=== PATIENT | male | born 1960 | race Caucasian/White ===

== ENCOUNTER 2017-10-09 05:39 | Outpatient (CLI) | payer OTHER ==
[~2017-10-09] VITALS: Ht 185.4 cm; Wt 75.3 kg
== END 2017-10-09 14:26 ==
LOC: PREOP 05:39
PROVIDERS: ATTEND Surgery
DX: Z01.818 Encounter for other preprocedural examination (principal); Z12.11 Encounter for screening for malignant neoplasm of colon; Z80.0 Family history of malignant neoplasm of digestive organs

== ENCOUNTER 2017-10-16 10:44 | Day surgery (SDC) | payer OTHER ==
[~2017-10-16] VITALS: Ht 185.4 cm; Wt 75.3 kg
[2017-10-16] MEDS ORDERED: NS IV 500 ML 500 ML ONE ×2 (10:55→13:00)
[2017-10-16 11:05] VITALS: BP 120/92
--- NOTE | 2017-10-16 11:20 | Progress Note-Pre Operative ---
Pre-Operative Progress Note H&P Reviewed The H&P was reviewed, patient examined and no changes noted. Date Seen by Provider: Oct 16, 2017 Time Seen by Provider: 11:00 Date H&P Reviewed: Oct 16, 2017 Time H&P Reviewed: 11:00 Pre-Operative Diagnosis: screening colonoscopy JESSICA JOVEL MD Oct 16, 2017 11:20 am
--- NOTE | 2017-10-16 11:20 | Conscious Sedation/ASA ---
Conscious Sedation Pre-Proced Time Reviewed: 11:00 ASA Class: 2 Airway Mallampati Classification: ([place] appropriate class) I. II. III, IV Lungs Heart ASA score ASA 1: a normal healthy patient ASA 2: a patient with a mild systemic disease (mid diabetes, controlled hypertension, obesity ASA 3: a patient with a severe systemic disease that limits activity (angina , COPD, prior Myocardial infarction) ASA 4: a patient with an incapacitating disease that is a constant threat to life (CHF, renal failure) ASA 5: a moribund patient not expected to survive 24 hrs. (ruptured aneurysm) ASA 6: a declared brain patient whose organs are being harvested. For emergent operations, add the letter E after the classification Grade 2 Sedation Plan: Analgesia, Amnesia, Plan communicated to team members, Discussed options with patient/fam, Discussed risks with patient/fam Note The patient is an appropriate candidate to undergo the planned procedure, sedation, and anesthesia. The patient immediately re-assessed prior to indication. JESSICA JOVEL MD Oct 16, 2017 11:20 am
[2017-10-16] MEDS ORDERED: morphine INJ 10 MG/ML 1ML (SYR OR VIAL) IV PRN (11:30)
[2017-10-16] MEDS ORDERED: HYDROcodone/APAP 5 MG/325 MG (LORTAB) TAB PO PRN (11:30)
[2017-10-16] MEDS ORDERED: ACETAMINOPHEN 325 MG TABLET PO PRN (11:30)
[2017-10-16] MEDS ORDERED: ONDANSETRON 4 MG/2 ML (SDV) Z0FRAN IV PRN (11:30)
[2017-10-16] MEDS: NS IV 500 ML 500 ML IV SCH ×2 (12:09→13:06)
[2017-10-16] MEDS ORDERED: LIDOCAINE JELLY 2% (XYLOCAINE) 5 ML TUBE ONE (12:12)
[2017-10-16] MEDS ORDERED: fentaNYL INJECTION 100 MCG/2 ML AMP ONE ×2 (12:12→12:13)
[2017-10-16] MEDS ORDERED: MIDAZOLAM 2 MG/2 ML (VERSED) VIAL ONE ×4 (12:13)
[2017-10-16] MEDS: fentaNYL INJECTION 100 MCG/2 ML AMP IVP PRN ×2 (12:35→12:46)
[2017-10-16] MEDS: MIDAZOLAM 2 MG/2 ML (VERSED) VIAL IVP PRN ×4 (12:44→13:00)
[2017-10-16] MEDS ORDERED: LIDOCAINE JELLY 2% (XYLOCAINE) 5 ML TUBE TOP ONE (13:15)
--- NOTE | 2017-10-16 13:21 | Progress Note-Post Operative ---
Post-Operative Progess Note Surgeon (s)/Cafe Assistant (s) Surgeon JESSICA JOVEL MD Cafe Assistant: none Pre-Operative Diagnosis screening colonoscopy, family hx colon ca Post-Operative Diagnosis chronic stage 2 ext and int hemorrhoids. Procedure & Operative Findings Date of Procedure 10/16/17 Procedure Performed/Findings Colonoscopy. Anesthesia Type CS Estimated Blood Loss Estimated blood loss (mL): minimal Specimens/Packing Specimens Removed none JESSICA JOVEL MD Oct 16, 2017 1:21 pm
--- NOTE | 2017-10-16 13:22 | Discharge Inst-Surgical ---
D/C Lap Instructions-KIDO Follow Up Appt 5 years Activity as tolerated High Fiber Diet 25g or more per day Avoid Alcohol, Caffeine, Spicy Becker and Acid foods. Drink 64 fluid oz or more of fluids per day. Symptoms to Report: Fever over 101 degree F, Nausea/Vomiting If any problems/questions: Contact your physician or go to Emergency Room JESSICA JOVEL MD Oct 16, 2017 1:22 pm
[2017-10-16 13:45] VITALS: BP 110/82
[2017-10-16 14:15] VITALS: BP 130/85
--- NOTE | 2017-10-16 18:20 | OPERATIVE REPORT ---
DATE OF SERVICE: 10/16/2017 ATTENDING PRIMARY CARE PHYSICIAN: Kiah Bahena MD PREOPERATIVE DIAGNOSIS: Screening colonoscopy with family history of colon cancer. POSTOPERATIVE DIAGNOSIS: Mild stage II chronic external and internal hemorrhoids. Remainder of the rectum and colon were normal. PROCEDURE: Colonoscopy. SURGEON: Jessica Jovel MD ANESTHESIA: Conscious sedation. ESTIMATED BLOOD LOSS: Minimal. FINDINGS: Mild chronic stage II external and internal hemorrhoids, not actively edematous nor inflamed and no bleeding. Prostate gland was palpable and appeared normal. The remainder of the rectum and colon were normal. There were no polyps or any neoplasms identified. DISPOSITION: The patient tolerated the procedure well. INDICATIONS: The patient is a 56-year-old male in need of a followup screening colonoscopy. This gentleman reports that his last colonoscopy was approximately 12 years ago and he was found to have a polyp and this was biopsied and found to be benign. He states that for the most part he is doing well and his bowel movements are normal. He does not report any red blood per rectum nor any dark tarry stools. He does have a family history of colon cancer with his mother being diagnosed with the disease around the age of 60. DESCRIPTION OF PROCEDURE: The patient was brought to the endoscopy suite, laid in left lateral decubitus position. After adequate IV pain and sedating medications and conscious sedation anesthesia, a digital rectal examination was performed. Mild chronic stage II external and internal hemorrhoids were identified, which were not actively edematous nor inflamed and no bleeding. Normal sphincter tone was felt and there were no palpable masses. Prostate gland was palpable and appeared normal. The endoscope was then intubated to the anus and rectum gently insufflated. The endoscope was then advanced through the valves of Mancera in the rectum with no polyps or any neoplasms identified. We then proceeded through the sigmoid colon where no diverticulosis identified. The endoscope was then advanced through the remainder of the descending, transverse and ascending colon to the cecum. These segments were normal. There were no polyps or any neoplasms identified throughout the colon or rectum. The endoscope was then slowly withdrawn while taking a second look and suctioning of residual air with no additional findings. The patient tolerated the procedure well. We will recommend continued medical management with a high-fiber diet with at least 30 grams of fiber per day as well as copious amounts of water to promote soft stools on a daily basis. Due to his first degree family history of colon cancer, we will recommend a followup colonoscopy in 5 years. Job ID: [id number] DocumentID: [id number] Dictated Date: 10/16/2017 13:13:12 Non Profit Job Titles Date: 10/16/2017 18:19:54 Dictated By: JESSICA JOVEL MD
== END 2017-10-16 14:20 | disposition home or self-care (01) ==
LOC: ENDO 10:44
PROVIDERS: ATTEND Surgery
DX: Z12.11 Encounter for screening for malignant neoplasm of colon (principal); K64.1 Second degree hemorrhoids; Z80.0 Family history of malignant neoplasm of digestive organs; Z87.891 Personal history of nicotine dependence

== ENCOUNTER → 2018-01-24 | Outpatient (CLI) | payer OTHER | LOC: CARD 08:58 | PROVIDERS: ATTEND Internal Medicine Interventional Cardiology | DX: Z01.810 Encounter for preprocedural cardiovascular examination (principal); I49.1 Atrial premature depolarization; Z72.0 Tobacco use | CPT/HCPCS: 93306 ==

== ENCOUNTER 2021-11-15 08:35 | Emergency (ER) | payer SELFPAY ==
[2021-11-15] MEDS ORDERED: KETOROLAC 60 MG/2 ML VIAL IM ONE (08:45)
[2021-11-15] MEDS ORDERED: CYCLOBENZAPRINE 10 MG (FLEXERIL) TAB PO SCH (08:45)
--- NOTE | 2021-11-15 08:50 | ED Back Pain ---
General Chief Complaint: Back Problems Stated Complaint: LWR BACK PAIN Source of Information: Patient, EMS Exam Limitations: No Limitations History of Present Illness Date Seen by Provider: Nov 15, 2021 Time Seen by Provider: 08:37 Initial Comments 60-year-old male presents to the emergency department via EMS for chronic back pain. He tells me pain is dull throbbing knifelike in his mid low back. He was seen at [facility] 2 weeks ago and had a CT scan or MRI at that time. He was told he would likely need follow-up for surgical intervention. 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 He denies any lower extremity weakness numbness or tingling. No loss of bowel or bladder control or saddle anesthesia. He has been using Motrin without much relief. He does tell me he is homeless Allergies and Home Medications Allergies Coded Allergies: No Known Drug Allergies (Verified , 10/16/17) Patient Home Medication List Home Medication List Reviewed: Yes Cyclobenzaprine HCl (Cyclobenzaprine HCl) 10 Mg Tablet, 10 MG PO Q6H Prescribed by: JOAQUIN MATOS MD on 11/15/21 0856 Review of Systems Constitutional: no symptoms reported EENTM: no symptoms reported Respiratory: no symptoms reported Cardiovascular: no symptoms reported Gastrointestinal: no symptoms reported Genitourinary: no symptoms reported Musculoskeletal: back pain Skin: no symptoms reported Psychiatric/Neurological: No Symptoms Reported Past Quuehuj-Wnrlac-Xyrwek Hx Patient Social History Tobacco Use?: Yes Smoking Status: Current Everyday Smoker Substance use?: Yes Substance type: Marijuana Seasonal Allergies Seasonal Allergies: No Past Medical History Surgeries: No Family Medical History Reviewed Nursing Family Hx No Pertinent Family Hx Physical Exam Vital Signs Vital Signs - First Documented 11/15/21 08:35 Temp 36.5 Pulse 71 Resp 18 B/P (MAP) 141/73 (95) Pulse Ox 100 O2 Delivery Room Air Capillary Refill : Height, Weight, BMI Height: 6'1.00" Weight: 166lbs. 0.0oz. 75.157209ax; 21.9 BMI Method: General Appearance: No Apparent Distress, WD/WN HEENT: Normal ENT Inspection, Pharynx Normal Neck: Normal Inspection, Non Tender, Supple Cardiovascular: Regular Rate, Rhythm, No Edema, No Murmur Respiratory: Chest Non Tender, Lungs Clear, Normal Breath Sounds, No Respiratory Distress Gastrointestinal: Normal Bowel Sounds, No Organomegaly, Non Tender, Soft Back: Vertebral Tenderness (Mid lumbar spine) Extremity: Normal Capillary Refill Neurologic/Psychiatric: Alert, Oriented x3, No Motor/Sensory Deficits, Normal Mood/Affect, pumper helper II-XII Norm as Tested, Other (Normal reflexes bilateral lower extremities) Skin: Normal Color, Warm/Dry Progress/Results/Core Measures Results/Orders My Orders Orders - JOAQUIN MATOS DO Ketorolac Injection (Toradol Injection) (11/15/21 08:45) Cyclobenzaprine Tablet (Flexeril Tablet) (11/15/21 08:45) Medications Given in ED Current Medications Medications Dose Ordered Sig/Noemy Route Start Time Stop Time Status Last Admin Dose Admin Ketorolac Tromethamine 30 mg ONCE ONCE IM 11/15/21 08:45 11/15/21 08:46 DC 11/15/21 09:00 30 MG Vital Signs/I&O 11/15/21 08:35 Temp 36.5 Pulse 71 Resp 18 B/P (MAP) 141/73 (95) Pulse Ox 100 O2 Delivery Room Air Departure Communication (Admissions) Patient is hemodynamically stable. He has no red flag symptoms and recently had imaging. Given IM Toradol and discharged in stable condition peer Impression Primary Impression: Back pain Qualified Codes: M54.50 - Low back pain, unspecified; G89.29 - Other chronic pain Disposition: 01 HOME, SELF-CARE Condition: Stable Departure-Patient Inst. Referrals: ANGELIKA SMITH MD (PCP) Primary Care Physician Patient Instructions: Low Back Pain (DC) Add. Discharge Instructions: Continue to take anti-inflammatory medications as needed. Use the muscle relaxers as needed as prescribed. All discharge instructions reviewed with patient and/or family. Voiced understanding. Scripts Cyclobenzaprine HCl (Cyclobenzaprine HCl) 10 Mg Tablet 10 MG PO Q6H for muscle spasm for 10 Days, #40 TAB Prov: JOAQUIN MATOS DO 11/15/21 Cyclobenzaprine HCl (Cyclobenzaprine HCl) 10 Mg Tablet 10 MG PO Q6H for Muscle Spasms for 10 Days, #30 TAB Prov: JOAQUIN MATOS DO 11/15/21 JOAQUIN MATOS DO Nov 15, 2021 08:50
[2021-11-15] MEDS ORDERED: CYCL10TA25 PO ×2 (08:56→09:04)
[2021-11-15 09:05] VITALS: BP 141/73
== END 2021-11-15 09:05 | disposition home or self-care (01) ==
LOC: EDUNIT# 08:35 → ER FS 08:36
DX: M54.50 Low back pain, unspecified (principal); F17.200 Nicotine dependence, unspecified, uncomplicated
CPT/HCPCS: 96372; 99284

== ENCOUNTER 2021-11-20 10:42 | Emergency (ER) | payer SELFPAY ==
[~2021-11-20] VITALS: Ht 185 cm; Wt 74.0 kg
[~2021-11-20 10:42] MED LIST: CYCL10TA25 PO
[2021-11-20 10:55] VITALS: BP 129/86
[2021-11-20] MEDS ORDERED: DOCUSATE SODIUM 100 MG (COLACE) CAP PO ONE (11:45)
--- NOTE | 2021-11-20 11:47 | ED General ---
General Chief Complaint: Abdominal/GI Problems Stated Complaint: CONSTIPATION Nursing Triage Note: ARRIVED VIA AMB WITH COMPLAINTS OF CONSTIPATION FOR A FEW DAYS. STATES HE GAVE HIMSELF A WATER ENEMA THIS AM WITH LITTLE RESULTS. STATES HE IS HOMELESS. Source of Information: Patient Exam Limitations: No Limitations History of Present Illness Date Seen by Provider: Nov 20, 2021 Time Seen by Provider: 11:20 Initial Comments 60-year-old male presents for abdominal bloating. States symptoms present for the last 2 to 3 days. He is having very small bowel movements daily. He may be constipated. He has had this happen to him in the past. No nausea or vomiting. No fevers. No abdominal pain. No changes in bladder habits. Allergies and Home Medications Allergies Coded Allergies: No Known Drug Allergies (Verified , 10/16/17) Patient Home Medication List Home Medication List Reviewed: Yes Cyclobenzaprine HCl (Cyclobenzaprine HCl) 10 Mg Tablet, 10 MG PO Q6H Prescribed by: JOAQUIN MATOS MD on 11/15/21 0856 Cyclobenzaprine HCl (Cyclobenzaprine HCl) 10 Mg Tablet, 10 MG PO Q6H Prescribed by: JOAQUIN MATOS MD on 11/15/21 0904 Review of Systems Review of Systems Constitutional: no symptoms reported EENTM: no symptoms reported Respiratory: no symptoms reported Cardiovascular: no symptoms reported Gastrointestinal: constipation Genitourinary: no symptoms reported Musculoskeletal: no symptoms reported Skin: no symptoms reported Psychiatric/Neurological: No Symptoms Reported Hematologic/Lymphatic: No Symptoms Reported Immunological/Allergic: no symptoms reported Past Fbehbmy-Lmpkss-Wbpcmo Hx Patient Social History Tobacco Use?: Yes Smoking Status: Current Everyday Smoker Alcohol Use?: No Immunizations Up To Date Second COVID19 Vaccination Skyler: UNKNOWN COVID19 Vaccine 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 0.0oz. 75.731701pk; 21.00 BMI Method: General Appearance: No Apparent Distress, WD/WN HEENT: PERRL/EOMI, TMs Normal, Normal ENT Inspection, Pharynx Normal Neck: Full Range of Motion, Normal Inspection, Non Tender, Supple Respiratory: Chest Non Tender, Lungs Clear, Normal Breath Sounds, No Accessory Muscle Use, No Respiratory Distress Cardiovascular: Regular Rate, Rhythm, No Edema, No Gallop, No JVD, No Murmur, Normal Peripheral Pulses Gastrointestinal: Normal Bowel Sounds, No Organomegaly, No Pulsatile Mass, Non Tender, Soft Back: Normal Inspection, No CVA Tenderness, No Vertebral Tenderness Extremity: Normal Capillary Refill, Normal Inspection, Normal Range of Motion, Non Tender, No Calf Tenderness Neurologic/Psychiatric: Alert, Oriented x3, No Motor/Sensory Deficits Skin: Normal Color, Warm/Dry Progress/Results/Core Measures Suspected Sepsis SIRS Temperature: Pulse: 107 Respiratory Rate: 16 Blood Pressure 129 /86 Mean: 100 Results/Orders My Orders Orders - SHAWNAJOAQUIN MONTERO DO Docusate Sodium Capsule (Colace Capsule) (11/20/21 11:45) Vital Signs/I&O 11/20/21 10:55 Temp 36.3 Pulse 107 Resp 16 B/P (MAP) 129/86 (100) Pulse Ox 99 O2 Delivery Room Air Capillary Refill : Less Than 3 Seconds Blood Pressure Mean: 100 Departure Communication (Admissions) Patient is hemodynamically stable nonsurgical abdominal exam. He fears he is constipated. He is only having very small bowel movements daily that he is passing gas. He states he does not have any money and requests help with medications for constipation mostly. He denies any real abdominal pain just b loating. No nausea or vomiting. His abdominal exam is benign. Impression Primary Impression: Decreased frequency of bowel movements Disposition: 01 HOME, SELF-CARE Condition: Stable Departure-Patient Inst. Referrals: NO,LOCAL PHYSICIAN (PCP/Family) Primary Care Physician Patient Instructions: Constipation, Adult (DC) Add. Discharge Instructions: You were seen in the emergency room today for urine constipation. As discussed I do not see any emergent medical condition for your symptoms. Your abdomen is very soft. As long as you are having small bowel movements daily is likely not worrisome. I recommend you get an ymln-mos-ybclaba stool softener like Colace or senna. You have been given a dose of Colace here which may help. Return to the emergency department for any severe concerns. Call your primary physician for any nonemergent needs All discharge instructions reviewed with patient and/or family. Voiced understanding. JOAQUIN MATOS DO Nov 20, 2021 11:47
== END 2021-11-20 12:06 | disposition home or self-care (01) ==
LOC: EDUNIT# 10:42 → ER 10:44
DX: R19.4 Change in bowel habit (principal); F17.200 Nicotine dependence, unspecified, uncomplicated; Z28.310 Unvaccinated for COVID-19
CPT/HCPCS: 99283

== ENCOUNTER 2021-11-30 19:51 | Emergency (ER) | payer SELFPAY ==
--- NOTE | 2021-11-30 20:07 | ED Back Pain ---
General Stated Complaint: LOWER BACK PAIN, WEAKNESS Source of Information: Patient, EMS Exam Limitations: No Limitations History of Present Illness Date Seen by Provider: Nov 30, 2021 Time Seen by Provider: 19:57 Initial Comments 60-year-old male with past medical history of chronic back pain coming in via EMS due to lower back pain and general weakness. He is homeless, who was found outside of the [facility], and was not acting right so bystanders called EMS. Blood pressure and glucose was okay for them. NIH was 0 for them. He reports general leg weakness which has been ongoing since he has been having back issues. He had an MRI recently and has follow-up at [place]. Denies any chest pain, shortness of breath, palpitations, nausea, vomiting, diarrhea, focal weakness or numbness, headache, vision changes, fever, rash, or any other concerns Allergies and Home Medications Allergies Coded Allergies: No Known Drug Allergies (Verified , 10/16/17) Patient Home Medication List Home Medication List Reviewed: Yes Cyclobenzaprine HCl (Cyclobenzaprine HCl) 10 Mg Tablet, 10 MG PO Q6H Prescribed by: JOAQUIN MATOS MD on 11/15/21 0856 Cyclobenzaprine HCl (Cyclobenzaprine HCl) 10 Mg Tablet, 10 MG PO Q6H Prescribed by: JOAQUIN MATOS MD on 11/15/21 0904 Review of Systems Constitutional: No fever EENTM: No blurred vision Respiratory: No cough Cardiovascular: No chest pain Gastrointestinal: no symptoms reported Genitourinary: no symptoms reported Musculoskeletal: back pain Skin: no symptoms reported All Other Systems Reviewed Negative Unless Noted: Yes Past Iaywtgg-Mgfqqi-Dmcmtr Hx Patient Social History Tobacco Use?: Yes Tobacco type used: Cigarettes Substance use?: Yes Substance type: Marijuana Immunizations Up To Date Second COVID19 Vaccination Skyler: UNKNOWN Seasonal Allergies Seasonal Allergies: No Past Medical History Surgery/Hospitalization HX: AFIB Surgeries: No Family Medical History No Pertinent Family Hx Physical Exam Vital Signs Capillary Refill : Height, Weight, BMI Height: 6'1.00" Weight: 166lbs. 0.0oz. 75.960704bj; 21.00 BMI Method: General Appearance: No Apparent Distress, WD/WN HEENT: PERRL/EOMI, Normal ENT Inspection, Pharynx Normal Neck: Full Range of Motion, Normal Inspection, Non Tender, Supple Cardiovascular: Regular Rate, Rhythm, No Edema, Normal Peripheral Pulses Respiratory: Chest Non Tender, Lungs Clear, Normal Breath Sounds, No Accessory Muscle Use, No Respiratory Distress Gastrointestinal: Normal Bowel Sounds, Non Tender, Soft; No Guarding Back: Normal Inspection, No CVA Tenderness, No Vertebral Tenderness Extremity: Normal Capillary Refill, Normal Inspection, Normal Range of Motion, Non Tender, No Calf Tenderness Neurologic/Psychiatric: Alert, Oriented x3, No Motor/Sensory Deficits, Normal Mood/Affect, barge hand II-XII Norm as Tested, Other (Normal giaemf-fq-lali, normal visual acuity and visual nielson, no drift with legs or arms, NIH of 0) Skin: Normal Color, Warm/Dry Lymphatic: No Adenopathy Progress/Results/Core Measures Results/Orders Lab Results Laboratory Tests Test 11/30/21 19:57 11/30/21 20:06 Range/Units Glucometer 94 70-110 MG/DL White Blood Count 8.0 4.3-11.0 10^3/uL Red Blood Count 4.77 4.30-5.52 10^6/uL Hemoglobin 13.9 13.3-17.7 g/dL Hematocrit 42 40-54 % Mean Corpuscular Volume 87 80-99 fL Mean Corpuscular Hemoglobin 29 25-34 pg Mean Corpuscular Hemoglobin Concent 34 32-36 g/dL Red Cell Distribution Width 14.9 H 10.0-14.5 % Platelet Count 255 130-400 10^3/uL Mean Platelet Volume 8.9 L 9.0-12.2 fL Immature Granulocyte % (Auto) 1 % Neutrophils (%) (Auto) 73 42-75 % Lymphocytes (%) (Auto) 17 12-44 % Monocytes (%) (Auto) 9 0-12 % Eosinophils (%) (Auto) 0 0-10 % Basophils (%) (Auto) 0 0-10 % Neutrophils # (Auto) 5.8 1.8-7.8 10^3/uL Lymphocytes # (Auto) 1.3 1.0-4.0 10^3/uL Monocytes # (Auto) 0.7 0.0-1.0 10^3/uL Eosinophils # (Auto) 0.0 0.0-0.3 10^3/uL Basophils # (Auto) 0.0 0.0-0.1 10^3/uL Immature Granulocyte # (Auto) 0.0 0.0-0.1 10^3/uL Sodium Level 137 135-145 MMOL/L Potassium Level 4.4 3.6-5.0 MMOL/L Chloride Level 103 98-107 MMOL/L Carbon Dioxide Level 23 21-32 MMOL/L Anion Gap 11 5-14 MMOL/L Blood Urea Nitrogen 13 7-18 MG/DL Creatinine 0.77 0.60-1.30 MG/DL Estimat Glomerular Filtration Rate 102 BUN/Creatinine Ratio 17 Glucose Level 96 70-105 MG/DL Calcium Level 9.4 8.5-10.1 MG/DL Corrected Calcium 10.0 8.5-10.1 MG/DL Magnesium Level 1.7 1.6-2.4 MG/DL Total Bilirubin 0.5 0.1-1.0 MG/DL Aspartate Amino Transf (AST/SGOT) 21 5-34 U/L Alanine Aminotransferase (ALT/SGPT) 17 0-55 U/L Alkaline Phosphatase 38 L 40-136 U/L Total Protein 7.5 6.4-8.2 GM/DL Albumin 3.2 3.2-4.5 GM/DL Serum Alcohol < 10 <10 MG/DL My Orders Orders - AINSLEY FAJARDO MD Alcohol (11/30/21 20:04) Cbc With Automated Diff (11/30/21 20:04) Comprehensive Metabolic Panel (11/30/21 20:04) Magnesium (11/30/21 20:04) Ed Iv/Invasive Line Start (11/30/21 20:04) Ns Iv 1000 Ml (Sodium Chloride 0.9%) (11/30/21 20:15) Ekg Tracing (11/30/21 20:04) Accucheck Stat ONCE (11/30/21 20:04) Medications Given in ED Current Medications Medications Dose Ordered Sig/Noemy Route Start Time Stop Time Status Last Admin Dose Admin Sodium Chloride 1,000 ml @ 0 mls/hr Q0M ONCE IV 11/30/21 20:15 11/30/21 20:16 DC 11/30/21 20:35 999 MLS/HR FSBG Bedside Testing Finger Stick Blood Glucose: 94 Blood Glucose Action Taken: PROVIDER NOTIFIED Progress Progress Note : Progress Note 60-year-old male with above history coming in due to general weakness. ABCs were intact and vitals were stable on presentation. Physical exam reassuring including an NIH of 0. He has known spinal issues, and had an MRI recently and likely will need neurosurgical intervention at some point in his spine. Currently he does not have any significant weakness that would warrant immediate referral emergently as a transfer. Basic labs obtained and are essentially are unremarkable. He was given a bolus of IV fluids. The patient's main issues when he got here were that he wanted coffee and food. He is homeless. I do not believe he has any other significant complaints at this time. Initial ECG Impression Date: Nov 30, 2021 Initial ECG Impression Time: 20:22 Initial ECG Rate: 94 Initial ECG Rhythm: Normal Sinus Comment Narrow QRS, normal axis, no significant ST changes or T wave abnormalities, frequent supraventricular premature complexes Departure Impression Primary Impression: Back pain Qualified Codes: M54.50 - Low back pain, unspecified; G89.29 - Other chronic pain Additional Impressions: Homelessness Hungry Qualified Codes: T73.0XXA - Starvation, initial encounter Disposition: 01 HOME, SELF-CARE Condition: Stable Departure-Patient Inst. Decision time for Depature: 20:55 Referrals: NO,LOCAL PHYSICIAN (PCP/Family) Primary Care Physician Patient Instructions: Low Back Pain ED Add. Discharge Instructions: You do have chronic back issues, and you will need to follow up with the back surgeon in [place]. You were told you likely would need surgery eventually. This is why your legs are weaker than usual. The number for the [facility] is [phone]. Call to schedule an appointment FELICITA. Otherwise take tylenol and ibuprofen as needed for pain. Work/School Note: Work Release Form Date Seen in the Emergency Department: Nov 30, 2021 Return to Work: Dec 01, 2021 Restrictions: No Restrictions AINSLEY FAJARDO MD Nov 30, 2021 20:07
[2021-11-30 20:12] LABS: BASOPHILS % (AUTO) 0 % (0-10); EOSINOPHILS % (AUTO) 0 % (0-10); HEMATOCRIT 42 % (40-54); HEMOGLOBIN 13.9 g/dL (13.3-17.7); LYMPHOCYTES # (AUTO) 1.3 10^3/uL (1.0-4.0); LYMPHOCYTES % (AUTO) 17 % (12-44); MEAN CORPUSCULAR HEMOGLOBIN 29 pg (25-34); MEAN CORPUSCULAR HGB CONC 34 g/dL (32-36); MEAN CORPUSCULAR VOLUME 87 fL (80-99); MEAN PLATELET VOLUME 8.9 fL (9.0-12.2); MONOCYTES # (AUTO) 0.7 10^3/uL (0.0-1.0); MONOCYTES % (AUTO) 9 % (0-12); NEUTROPHILS # (AUTO) 5.8 10^3/uL (1.8-7.8); NEUTROPHILS % (AUTO) 73 % (42-75); PLATELET COUNT 255 10^3/uL (130-400)
[2021-11-30] MEDS ORDERED: NS IV 1000 ML 1,000 ML IV ONE (20:15)
[2021-11-30 20:32] LABS: ALBUMIN 3.2 GM/DL (3.2-4.5); CHLORIDE 103 MMOL/L (98-107); POTASSIUM 4.4 MMOL/L (3.6-5.0); SODIUM 137 MMOL/L (135-145)
[2021-11-30 20:34] LABS: CALCIUM 9.4 MG/DL (8.5-10.1)
[2021-11-30 20:35] LABS: GLUCOSE 96 MG/DL (70-105); TOTAL PROTEIN 7.5 GM/DL (6.4-8.2)
[2021-11-30 20:36] LABS: CARBON DIOXIDE 23 MMOL/L (21-32)
[2021-11-30 20:37] LABS: BILIRUBIN,TOTAL 0.5 MG/DL (0.1-1.0)
[2021-11-30 20:38] LABS: ALKALINE PHOSPHATASE 38 U/L (40-136)
[2021-11-30 20:39] LABS: CREATININE SERUM 0.77 MG/DL (0.60-1.30); GFR ESTIMATED 102
[2021-11-30 20:40] LABS: BUN/CREATININE RATIO 17
[2021-11-30 20:41] LABS: MAGNESIUM 1.7 MG/DL (1.6-2.4)
[2021-11-30 20:42] LABS: ALANINE AMINOTRANSFERASE 17 U/L (0-55)
[2021-11-30 21:03] VITALS: BP 146/85
== END 2021-11-30 21:05 | disposition home or self-care (01) ==
LOC: EDUNIT# 19:51 → ER 19:52
DX: T73.0XXA Starvation, initial encounter (principal); M54.50 Low back pain, unspecified; G89.29 Other chronic pain; Z59.00 Homelessness unspecified
CPT/HCPCS: 80053; 82947; 83735; 85025; 93005; 99284; G0480; 36415; 80320

== ENCOUNTER 2021-12-04 15:14 | Inpatient (IN) | payer OTHER ==
[2021-12-04] VITALS (10 sets, daily range): BP systolic 112–132; BP diastolic 59–68
[~2021-12-04] VITALS: Ht 187.9 cm; Wt 78.5 kg
[2021-12-04 15:50] LABS: BASOPHILS % (AUTO) 0 % (0-10); EOSINOPHILS % (AUTO) 0 % (0-10); HEMATOCRIT 41 % (40-54); HEMOGLOBIN 13.7 g/dL (13.3-17.7); LYMPHOCYTES # (AUTO) 1.6 10^3/uL (1.0-4.0); LYMPHOCYTES % (AUTO) 14 % (12-44); MEAN CORPUSCULAR HEMOGLOBIN 30 pg (25-34); MEAN CORPUSCULAR HGB CONC 34 g/dL (32-36); MEAN CORPUSCULAR VOLUME 87 fL (80-99); MEAN PLATELET VOLUME 9.1 fL (9.0-12.2); MONOCYTES # (AUTO) 0.8 10^3/uL (0.0-1.0); MONOCYTES % (AUTO) 7 % (0-12); NEUTROPHILS # (AUTO) 9.1 10^3/uL (1.8-7.8); NEUTROPHILS % (AUTO) 79 % (42-75); PLATELET COUNT 268 10^3/uL (130-400); WHITE BLOOD COUNT 11.6 10^3/uL (4.3-11.0)
--- NOTE | 2021-12-04 15:58 | ED General ---
General Chief Complaint: General Problems/Pain Stated Complaint: WEAKNESS Source of Information: Patient Exam Limitations: Other (Pt is poor historian) (ARIA PEDRAZA A MED STUDENT) History of Present Illness Date Seen by Provider: Dec 04, 2021 Time Seen by Provider: 15:47 Initial Comments Jeny Bermudez is a 61 yo male who presented for weakness and pain. Pt has hx of chronic back pain and homelessness. Pt is a poor historian, so history was mo stly pieced together from previous ED records, the friend who brought him in and ZIYAD Joseph his provider. Pt's friend states he is not acting like himself and is very lethargic. Pt was seen by ZIYAD Joseph this morning who also stated pt needed medical attention d/t concern for sepsis. Pt reports he has pain all over. He has been seen several times in this ED for back pain. He had an MRI at some point stating need for spinal surgery, but pt never followed up with [facility]. He reports he does not have the resources to get there. He is currently living in a hotel with assistance from the [employer] Larisa Tian has c/o need for intermediate placement as he can not care for himself any longer. Upon examination pt has a swollen bottom lip. When asked about this he states he does not know why its swollen and denies injury. Upon inspection pt has anchovie like paste coming from the floor of the mouth and has visible missing teeth and edematous gums. When asked about recent falls pt states he may have fallen last night, but he does not remember. Upon removing shoes and socks pt winces in pain with removal of right side. The right foot and ankle are visibly swollen, but pt does not remember injuring this joint. Pt is a smoker and admits to marijuana use for his back pain. Pt denies ETOH use and this is confirmed by his friend who states he has not drank in 20 years. With hx of possible fall and unknown whether LOC, non contrast CT head should be considered. Will order right ankle/foot Xrays to r/o fractures. Will get CBC, CMP, UA with culture if indicated. 2 large bore IVs started, will give 1L bolus. There is concern for sepsis, so work up will be completed. Timing/Duration: Getting Worse Associated Systoms: Fever/Chills; No Nausea/Vomiting; Weakness (ARIA PEDRAZA) Allergies and Home Medications Allergies Coded Allergies: No Known Drug Allergies (Verified , 10/16/17) Patient Home Medication List Home Medication List Reviewed: No (GORDON RUTHERFORD DO) Cyclobenzaprine HCl (Cyclobenzaprine HCl) 10 Mg Tablet, 10 MG PO Q6H Prescribed by: JOAQUIN MATOS MD on 11/15/21 0856 Cyclobenzaprine HCl (Cyclobenzaprine HCl) 10 Mg Tablet, 10 MG PO Q6H Prescribed by: JOAQUIN MATOS MD on 11/15/21 0904 Review of Systems Review of Systems Constitutional: No chills; fever EENTM: No blurred vision, No vision loss Respiratory: No cough, No short of breath Cardiovascular: No chest pain, No palpitations Gastrointestinal: No abdominal pain, No constipation, No diarrhea, No nausea, No vomiting Genitourinary: No dysuria, No frequency Musculoskeletal: back pain, muscle weakness Skin: No lesions, No lumps, No rash Psychiatric/Neurological: Numbness, Weakness Hematologic/Lymphatic: No Symptoms Reported Immunological/Allergic: no symptoms reported (ARIA PEDRAZA) Past Hjtfegl-Wbqdyx-Clkdqb Hx Immunizations Up To Date First/Initial COVID19 Vaccinat: UNKNOWN Second COVID19 Vaccination Skyler: UNKNOWN Third COVID19 Vaccination Date: UNKNOWN (ARIA PEDRAZA) Seasonal Allergies Seasonal Allergies: No (ARIA PEDRAZA) Past Medical History Surgery/Hospitalization HX: AFIB Surgeries: No (ARIA PEDRAZA) Family Medical History No Pertinent Family Hx (ARIA PEDRAZA) Physical Exam Vital Signs Vital Signs - First Documented 12/04/21 15:35 Temp 37.8 Pulse 106 Resp 14 B/P (MAP) 124/79 (94) Pulse Ox 96 O2 Delivery Room Air (NAZARIO MAKI MD) Vital Signs Capillary Refill : (ARIA PEDRAZA STUDENT) Height, Weight, BMI Height: 6'1.00" Weight: 166lbs. 0.0oz. [id number]; 21.00 BMI Method: General Appearance: Chronically ill, Cachetic HEENT: PERRL/EOMI, Other (necrotic material extending from mucosal surface of the lower lip, into the adjacent gingiva, unstable front teeth. Edematous floor of mouth. Erythematous gingiva throughout rest of mouth. Halitosis. Echymosis and induration over chin on the mucosal surface as well as exterior surface) Neck: Full Range of Motion, Normal Inspection, Tender Lateral, Tender Midline Respiratory: Chest Non Tender, Lungs Clear, Normal Breath Sounds Cardiovascular: No Murmur, Tachycardia Gastrointestinal: Normal Bowel Sounds, Non Tender, Soft Extremity: Normal Capillary Refill, No Pedal Edema, Swelling (right foot and ankle edema) Neurologic/Psychiatric: Alert, Depressed Affect, Disoriented Skin: Other (skin is abnormally warm to touch) Lymphatic: No Adenopathy (ARIA PEDRAZA MED STUDENT) Focused Exam Lactate Level 12/04/21 15:47: Lactic Acid Level 2.19*H (NAZARIO MAKI MD) Lactic Acid Level Laboratory Tests Test 12/04/21 15:47 Lactic Acid Level 2.19 MMOL/L (0.50-2.00) *H (NAZARIO MAKI MD) Progress/Results/Core Measures Suspected Sepsis SIRS Temperature: Pulse: Respiratory Rate: Laboratory Tests 12/04/21 15:47: White Blood Count 11.6H Blood Pressure / Mean: 12/04/21 15:47: Lactic Acid Level 2.19*H Laboratory Tests 12/04/21 15:47: Creatinine 0.75, INR Comment 1.0, Platelet Count 268, Total Bilirubin 0.5 (ARIA PEDRAZA MED STUDENT) Results/Orders Lab Results Laboratory Tests Test 12/04/21 15:47 Range/Units White Blood Count 11.6 H 4.3-11.0 10^3/uL Red Blood Count 4.65 4.30-5.52 10^6/uL Hemoglobin 13.7 13.3-17.7 g/dL Hematocrit 41 40-54 % Mean Corpuscular Volume 87 80-99 fL Mean Corpuscular Hemoglobin 30 25-34 pg Mean Corpuscular Hemoglobin Concent 34 32-36 g/dL Red Cell Distribution Width 14.8 H 10.0-14.5 % Platelet Count 268 130-400 10^3/uL Mean Platelet Volume 9.1 9.0-12.2 fL Immature Granulocyte % (Auto) 1 % Neutrophils (%) (Auto) 79 H 42-75 % Lymphocytes (%) (Auto) 14 12-44 % Monocytes (%) (Auto) 7 0-12 % Eosinophils (%) (Auto) 0 0-10 % Basophils (%) (Auto) 0 0-10 % Neutrophils # (Auto) 9.1 H 1.8-7.8 10^3/uL Lymphocytes # (Auto) 1.6 1.0-4.0 10^3/uL Monocytes # (Auto) 0.8 0.0-1.0 10^3/uL Eosinophils # (Auto) 0.0 0.0-0.3 10^3/uL Basophils # (Auto) 0.0 0.0-0.1 10^3/uL Immature Granulocyte # (Auto) 0.1 0.0-0.1 10^3/uL Erythrocyte Sedimentation Rate 32 H 0-30 MM/HR Prothrombin Time 13.7 12.2-14.7 SEC INR Comment 1.0 0.8-1.4 Activated Partial Thromboplast Time 42 H 24-35 SEC Sodium Level 134 L 135-145 MMOL/L Potassium Level 4.3 3.6-5.0 MMOL/L Chloride Level 99 98-107 MMOL/L Carbon Dioxide Level 27 21-32 MMOL/L Anion Gap 8 5-14 MMOL/L Blood Urea Nitrogen 17 7-18 MG/DL Creatinine 0.75 0.60-1.30 MG/DL Estimat Glomerular Filtration Rate 103 BUN/Creatinine Ratio 23 Glucose Level 115 H 70-105 MG/DL Lactic Acid Level 2.19 *H 0.50-2.00 MMOL/L Calcium Level 9.4 8.5-10.1 MG/DL Corrected Calcium 10.2 H 8.5-10.1 MG/DL Total Bilirubin 0.5 0.1-1.0 MG/DL Aspartate Amino Transf (AST/SGOT) 23 5-34 U/L Alanine Aminotransferase (ALT/SGPT) 19 0-55 U/L Alkaline Phosphatase 34 L 40-136 U/L C-Reactive Protein High Sensitivity 10.96 H 0.00-0.50 MG/DL Total Protein 7.4 6.4-8.2 GM/DL Albumin 3.0 L 3.2-4.5 GM/DL (NAZARIO MAKI MD) My Orders Orders - NAZARIO MAKI MD Cbc With Automated Diff (12/04/21 15:40) Comprehensive Metabolic Panel (12/04/21 15:40) Blood Culture (12/04/21 15:40) Sputum Culture (12/04/21 15:40) Urinalysis (12/04/21 15:40) Urine Culture (12/04/21 15:40) Protime With Inr (12/04/21 15:40) Partial Thromboplastin Time (12/04/21 15:40) Chest 1 View, Ap/Pa Only (12/04/21 15:40) Ed Iv/Invasive Line Start (12/04/21 15:40) Ed Iv/Invasive Line Start (12/04/21 15:40) Vital Signs Adult Sepsis Patie Q15M (12/04/21 15:40) O2 (12/04/21 15:40) Remove Rings In Anticipation O (12/04/21 15:40) Lactic Acid Analyzer (12/04/21 15:40) Metronidazole 500mg/100ml Ivpb (Flagyl 5 (12/04/21 16:15) Ampicillin/Sulbactam Injection (Unasyn 3 (12/04/21 16:15) Erythrocyte Sedimentation Rate (12/04/21 16:10) Hs C Reactive Protein (12/04/21 16:10) Ns Iv 1000 Ml (Sodium Chloride 0.9%) (12/04/21 16:30) Ct Maxillofacial Wo (12/04/21 16:26) Ct Chest W (12/04/21 16:26) Fentanyl Inj (Sublimaze Injection) (12/04/21 16:45) Iohexol Injection (Omnipaque 350 Mg/Ml 1 (12/04/21 17:00) Received Contrast (Hold Metformin- Contr (12/04/21 17:00) Ns (Ivpb) (Sodium Chloride 0.9% Ivpb Bag (12/04/21 17:00) (NAZARIO MAKI MD) Medications Given in ED Current Medications Medications Dose Ordered Sig/Noemy Route Start Time Stop Time Status Last Admin Dose Admin Ampicillin Sodium/ Sulbactam Sodium 3 gm/Sodium Chloride 100 ml @ 200 mls/hr ONCE ONCE IV 12/04/21 16:15 12/04/21 16:44 DC 12/04/21 16:41 200 MLS/HR Fentanyl Citrate 50 mcg ONCE ONCE IVP 12/04/21 16:45 12/04/21 16:46 DC 12/04/21 16:50 50 MCG Iohexol 75 ml ONCE ONCE IV 12/04/21 17:00 12/04/21 17:01 DC 12/04/21 17:26 75 ML Metronidazole 100 ml @ 100 mls/hr ONCE ONCE IV 12/04/21 16:15 12/04/21 17:14 DC 12/04/21 16:40 100 MLS/HR Sodium Chloride 100 ml ONCE ONCE IV 12/04/21 17:00 12/04/21 17:01 DC 12/04/21 17:26 80 ML (NAZARIO MAKI MD) Vital Signs/I&O 12/04/21 15:35 Temp 37.8 Pulse 106 Resp 14 B/P (MAP) 124/79 (94) Pulse Ox 96 O2 Delivery Room Air (NAZARIO MAKI MD) Vital Signs/I&O Capillary Refill : (ARIA PEDRAZA MED STUDENT) Progress Note : Time: 16:23 Progress Note CXR showed Possible nodule in the mid right lung measuring 1.[address] of the chest to further evaluate. Mildly prominent interstitial markings which can be seen with chronic fibrotic changes. Superimposed edema or infection is also a possibility. WBC 11.6, PTT 42, Na 134, Corrected Ca2+ 10.2, ALP 34L, Alb 3.0, lactic acid 2.19, CRP 10.96. [address] Roman, general foreman who recommended facial CT to r/o osteomyelitis or fracture. 1735 CT chest and maxillofacial pending. (ARIA PEDRAZA MED STUDENT) Progress Note : Progress Note NO DETERIORATION IN PT'S CONDITION DURING ER STAY PT DID HAVE INCREASE IN TEMP TO 101.5--GIVEN TYLENOL AND MOTRIN VITALS REMAIN STABLE 1999--PT HAS RIPPED OUT IS IV, AND GOTTEN INTO A WHEELCHAIR THAT WAS IN THE ROOM, AND WHEELED HIMSELF OUT TO THE AMBULANCE BAY. PT HAS URINATED ALL OVER HIMSELF AND ONTO THE GROUND, HE IS NOW TRYING TO SMOKE. PT BROUGHT BACK INTO THE ER AND TAKEN UPSTAIRS. (GORDON RUTHERFORD DO) Diagnostic Imaging Diagonstic Imaging: Xray Comments [facility], [place] NAME: JENY BERMUDEZ [facility] REC#: [id number] PT STATUS: REG ER : 1960 PHYSICIAN: NAZARIO MAKI MD ADMIT DATE: 12/04/21/ER Signed Date of Exam:12/04/21 CHEST 1 VIEW, AP/PA ONLY EXAMINATION: Chest 1 view HISTORY: Sepsis. COMPARISON: None available. FINDINGS: The lung volumes are normal. No focal consolidation is seen. Scattered mildly prominent interstitial markings are seen. Possible nodule is seen in the mid right lung measuring 1.0 cm. No large pleural effusion or pneumothorax is seen. The cardiomediastinal silhouette is normal in size and contour. No acute osseous abnormality is seen. IMPRESSION: 1. Possible nodule in the mid right lung measuring 1.[address] of the chest to further evaluate. 2. Mildly prominent interstitial markings which can be seen with chronic fibrotic changes. Superimposed edema or infection is also a possibility. Dictated by: Dictated on workstation # [id number] Dict: 12/04/21 1602 Trans: 12/04/21 1607 [facility] [id number] Interpreted by: BETH OTERO DO Electronically signed by: BETH OTERO DO 12/04/21 1607 Comments [facility] [place] NAME: JENY BERMUDEZ [facility] REC#: [id number] PT STATUS: REG ER : 1960 PHYSICIAN: NAZARIO MAKI MD ADMIT DATE: 12/04/21/ER Draft Date of Exam:12/04/21 CT MAXILLOFACIAL WO PROCEDURE: CT maxillofacial without contrast. TECHNIQUE: Multiple contiguous axial images were obtained through the facial bones without the use of intravenous contrast. Auto Exposure Controls were utilized during the CT exam to meet ALARA standards for radiation dose reduction. INDICATION: Facial trauma. Face pain. COMPARISON: None. FINDINGS: No acute fracture is seen in the mandible, zygomatic arches, or pterygoid plates. The bilateral TMJ have a normal appearance. The nasal bones demonstrate normal alignment. There is leftward deviation of the nasal septum without evidence of acute fracture. A prominent nasal spur is contacting the medial wall of the left maxillary sinus. The paranasal sinuses are clear. Small bilateral mastoid effusions. The globes and orbits are symmetric and unremarkable. The included intracranial contents have a normal appearance. The included upper cervical spine has a normal appearance. Periodontal disease is noted. IMPRESSION: 1. No evidence of acute facial fracture. 2. Periodontal disease. Recommend dental consultation. Dictated on workstation # [id number] Dict: 12/04/21 1728 Trans: 12/04/21 1734 [id number] Interpreted by: BETH OTERO DO Electronically signed by: (NAZARIO MAKI MD) Comments CT CHEST-- FINDINGS: The heart size is within normal limits. No pericardial effusion is present. Mildly prominent axillary lymph nodes are seen. No evidence of mediastinal lymphadenopathy. Centrilobular emphysema is seen in the lungs. A nodule seen in the right middle lobe measuring 1.1 cm. A nodule seen in the right lower lobe measuring 0.7 cm. Nodule in the left lung base measures 1.1 cm. Opacities are seen in the lung bases bilaterally, right greater than left. No central endobronchial obstructing lesions are identified. There is no pleural effusion or pneumothorax. The osseous structures demonstrate no acute abnormalities. Limited views of the upper abdominal structures demonstrate no acute abnormalities. Both adrenal glands are unremarkable. IMPRESSION: 1. Scattered nodules in the lungs measuring up to 1.1 cm. Recommend short interval follow-up in 3 months to ensure stability. PET/CT and percutaneous biopsy may not be as valuable due to the size of the nodules 2. Centrilobular emphysema. 3. Bibasilar opacities, likely representing atelectasis. CT ORBITS-- FINDINGS: No acute fracture is seen in the mandible, zygomatic arches, or pterygoid plates. The bilateral TMJ have a normal appearance. The nasal bones demonstrate normal alignment. There is leftward deviation of the nasal septum without evidence of acute fracture. A prominent nasal spur is contacting the medial wall of the left maxillary sinus. The paranasal sinuses are clear. Small bilateral mastoid effusions. The globes and orbits are symmetric and unremarkable. The included intracranial contents have a normal appearance. The included upper cervical spine has a normal appearance. Periodontal disease is noted. IMPRESSION: 1. No evidence of acute facial fracture. 2. Periodontal disease. Recommend dental consultation. XRAYS--PER RADIOLOGIST REPORTS AT 1914 RIGHT TIB-FIB-- FINDINGS: There is no acute fracture or dislocation of the right tibia and fibula. Chronic deformity is seen in the proximal right fibula. No suspicious focal osseous lesions. The right knee and right ankle demonstrate normal alignment. IMPRESSION: 1. No acute fracture or dislocation in the right tibia and fibula. RIGHT FOOT-- FINDINGS: There is no acute fracture or dislocation of the right foot. Alignment is anatomic. The imaged joint spaces are preserved. No focal osseous lesions are seen. IMPRESSION: 1. No acute fracture or dislocation in the right foot. Reviewed: Reviewed by Me (GORDON RUTHERFORD DO) Departure Communication (Admissions) 1800--ASSUMED CARE FROM DR. MAKI. SHE HAS CONTACTED DR. ROMAN, AND HE IS OUT OF TOWN TODAY AND NOT WAREHOUSE OPERATOR. SHE HAS CONTACTED: - [facility] --NO BEDS [facility]--NO MAXILLOFACIAL/DENTAL SERVICES - [facility] TRANSFER LINE--NO BEDS - CALL MADE TO AT 180--THEY WILL CALL BACK 1816--I CONTACTED [facility] , THEY WILL CALL BACK 1831--[facility] CALLED BACK--NO BEDS 1841--ATTEMPTED TO CONTACT DR. ROMAN, MESSAGE LEFT 1846--CALLED [facility]--THEY DO NOT HAVE ANY BEDS AT ANY OF THEIR FACILITIES 184--[facility] CALLED BACK, THEY DO NOT HAVE BEDS. WAREHOUSE OPERATOR PHYSICIAN RECOMMENDS IV ANTIBIOTICS AT THIS TIME, AND ADMIT HERE IF POSSIBLE. 1849--SPOKE WITH DR. CARTWRIGHT, ACCEPTS PT FOR ADMIT. WILL CONSULT DR. ROMAN OR DR. GARCIA IN AM. (GORDON RUTHERFORD DO) Impression Primary Impression: Sepsis Additional Impressions: Acute necrotizing ulcerative gingivitis Oral cellulitis Homelessness INABILITY TO CARE FOR SELF RIGHT FOOT AND ANKLE PAIN AND SWELLING Disposition: ADMITTED INPATIENT Condition: Stable Admissions Decision to Admit Reason: Admit from ER (General) Decision to Admit/Date: Dec 04, 2021 Time/Decision to Admit Time: 18:50 (GORDON RUTHERFORD DO) Departure-Patient Inst. Referrals: [facility] (PCP/Family) Primary Care Physician Verification and Attestation of Medical Student E/M Service A medical student performed and documented this service in my presence. I reviewed and verified all information documented by the medical student and made modifications to such information, when appropriate. I personally performed the physical exam and medical decision making. Nazario Maki, Dec 04, 2021,17:42 (NAZARIO MAKI MD) ARIA PEDRAZA MED STUDENT Dec 04, 2021 15:58 NAZARIO MAKI MD Dec 04, 2021 17:42 GORDON RUTHERFORD DO Dec 04, 2021 19:12
--- NOTE | 2021-12-04 16:04 | Diagnostic Imaging Report ---
EXAMINATION: Chest 1 view HISTORY: Sepsis. COMPARISON: None available. FINDINGS: The lung volumes are normal. No focal consolidation is seen. Scattered mildly prominent interstitial markings are seen. Possible nodule is seen in the mid right lung measuring 1.0 cm. No large pleural effusion or pneumothorax is seen. The cardiomediastinal silhouette is normal in size and contour. No acute osseous abnormality is seen. IMPRESSION: 1. Possible nodule in the mid right lung measuring 1.[address] of the chest to further evaluate. 2. Mildly prominent interstitial markings which can be seen with chronic fibrotic changes. Superimposed edema or infection is also a possibility. Dictated by: Dictated on workstation # [id number]
[2021-12-04 16:08] LABS: POTASSIUM 4.3 MMOL/L (3.6-5.0)
[2021-12-04 16:09] LABS: CALCIUM 9.4 MG/DL (8.5-10.1)
[2021-12-04 16:10] LABS: PROTHROMBIN TIME PATIENT 13.7 SEC (12.2-14.7); TOTAL PROTEIN 7.4 GM/DL (6.4-8.2)
[2021-12-04 16:12] LABS: BILIRUBIN,TOTAL 0.5 MG/DL (0.1-1.0)
[2021-12-04 16:14] LABS: CREATININE SERUM 0.75 MG/DL (0.60-1.30)
[2021-12-04] MEDS ORDERED: metroNIDAZOLE 500MG/100ML IVPB 100 ML IV ONE (16:15)
[2021-12-04] MEDS ORDERED: AMPICILLIN/SULBACTAM INJECTION 3 GM in NS (IVPB) 100 ML IV ONE (16:15)
[2021-12-04] MEDS ORDERED: NS IV 1000 ML 1,000 ML IV SCH ×2 (16:30→18:15)
[2021-12-04] MEDS ORDERED: fentaNYL INJ 100 MCG/2 ML AMP IVP ONE (16:45)
[2021-12-04] MEDS ORDERED: HOLD METFORMIN - RECEIVED CONTRAST 20 ML VIAL IV SCH (17:00)
[2021-12-04] MEDS ORDERED: IOHEXOL 350 MG/ML 100 ML (OMNIPAQUE 350) VIAL IV ONE (17:00)
[2021-12-04] MEDS ORDERED: NS 100 ML (IVPB) BAG IV ONE (17:00)
--- NOTE | 2021-12-04 17:34 | Diagnostic Imaging Report ---
PROCEDURE: CT maxillofacial without contrast. TECHNIQUE: Multiple contiguous axial images were obtained through the facial bones without the use of intravenous contrast. Auto Exposure Controls were utilized during the CT exam to meet ALARA standards for radiation dose reduction. INDICATION: Facial trauma. Face pain. COMPARISON: None. FINDINGS: No acute fracture is seen in the mandible, zygomatic arches, or pterygoid plates. The bilateral TMJ have a normal appearance. The nasal bones demonstrate normal alignment. There is leftward deviation of the nasal septum without evidence of acute fracture. A prominent nasal spur is contacting the medial wall of the left maxillary sinus. The paranasal sinuses are clear. Small bilateral mastoid effusions. The globes and orbits are symmetric and unremarkable. The included intracranial contents have a normal appearance. The included upper cervical spine has a normal appearance. Periodontal disease is noted. IMPRESSION: 1. No evidence of acute facial fracture. 2. Periodontal disease. Recommend dental consultation. Dictated by: Dictated on workstation # [id number]
--- NOTE | 2021-12-04 17:39 | Diagnostic Imaging Report ---
EXAMINATION: CT chest with intravenous contrast. TECHNIQUE: Multiple contiguous axial images were obtained through the chest after the uneventful administration of intravenous contrast. All CT scans use one or more of the following dose optimizing techniques: automated exposure control, MA and/or KvP adjustment based on patient size and exam type or iterative reconstruction. HISTORY: Chest pain. Trauma. COMPARISON: 12/04/2021. FINDINGS: The heart size is within normal limits. No pericardial effusion is present. Mildly prominent axillary lymph nodes are seen. No evidence of mediastinal lymphadenopathy. Centrilobular emphysema is seen in the lungs. A nodule seen in the right middle lobe measuring 1.1 cm. A nodule seen in the right lower lobe measuring 0.7 cm. Nodule in the left lung base measures 1.1 cm. Opacities are seen in the lung bases bilaterally, right greater than left. No central endobronchial obstructing lesions are identified. There is no pleural effusion or pneumothorax. The osseous structures demonstrate no acute abnormalities. Limited views of the upper abdominal structures demonstrate no acute abnormalities. Both adrenal glands are unremarkable. IMPRESSION: 1. Scattered nodules in the lungs measuring up to 1.1 cm. Recommend short interval follow-up in 3 months to ensure stability. PET/CT and percutaneous biopsy may not be as valuable due to the size of the nodules 2. Centrilobular emphysema. 3. Bibasilar opacities, likely representing atelectasis. Dictated by: Dictated on workstation # [id number]
[2021-12-04] MEDS ORDERED: TETANUS,DIPTH,PERTUSS P/F (BOOSTRIX) 0.5 ML VIAL IM ONE (18:30)
--- NOTE | 2021-12-04 18:44 | Diagnostic Imaging Report ---
CLINICAL HISTORY: Right foot pain. COMPARISON: None. TECHNIQUE: Three views of the right foot. FINDINGS: There is no acute fracture or dislocation of the right foot. Alignment is anatomic. The imaged joint spaces are preserved. No focal osseous lesions are seen. IMPRESSION: 1. No acute fracture or dislocation in the right foot. Dictated by: Dictated on workstation # [id number]
--- NOTE | 2021-12-04 18:44 | Diagnostic Imaging Report ---
CLINICAL HISTORY: Right leg pain. COMPARISON: None. TECHNIQUE: 4 views of the right tibia and fibula. FINDINGS: There is no acute fracture or dislocation of the right tibia and fibula. Chronic deformity is seen in the proximal right fibula. No suspicious focal osseous lesions. The right knee and right ankle demonstrate normal alignment. IMPRESSION: 1. No acute fracture or dislocation in the right tibia and fibula. Dictated by: Dictated on workstation # [id number]
[2021-12-04 18:51] LABS: BACTERIA,URINE NEGATIVE /HPF; BILIRUBIN,URINE NEGATIVE (NEGATIVE); CLARITY,URINE CLOUDY; COLOR,URINE YELLOW; GLUCOSE, URINE (UA) NEGATIVE (NEGATIVE); KETONES,URINE NEGATIVE (NEGATIVE); LEUKOCYTE ESTERASE ,URINE NEGATIVE (NEGATIVE); NITRITE,URINE NEGATIVE (NEGATIVE); PH,URINE 6.5 (5-9); PROTEIN,URINE NEGATIVE (NEGATIVE)
[2021-12-04] MEDS ORDERED: IBUPROFEN 800 MG (MOTRIN) TAB PO ONE (19:15)
[2021-12-04] MEDS ORDERED: ACETAMINOPHEN 500 MG TAB (TYLENOL) PO ONE (19:15)
[2021-12-04 20:15] LABS: AMPHETAMINE SCREEN, URINE NEGATIVE (NEGATIVE); BARBITURATE SCREEN URINE NEGATIVE (NEGATIVE); BENZODIAZEPINES SCREEN URINE NEGATIVE (NEGATIVE); CANNABINOID SCREEN, URINE NEGATIVE (NEGATIVE); COCAINE SCREEN URINE NEGATIVE (NEGATIVE); METHADONE STAT NEGATIVE (NEGATIVE); OPIATE SCREEN URINE NEGATIVE (NEGATIVE); OXYCODONE STAT NEGATIVE (NEGATIVE); PROPOXYPHENE STAT NEGATIVE (NEGATIVE); TRICYCLIC ANTIDEPRESSANTS SCRE NEGATIVE (NEGATIVE)
[2021-12-04] MEDS ORDERED: LACTATED RINGERS 1,000 ML IV ONE (20:30)
[2021-12-04] MEDS ORDERED: VANCOMYCIN INJECTION 0.1 MG in NS (IVPB) 250 ML IV SCH (22:15)
[2021-12-04] MEDS ORDERED: MEROPENEM 1,000 MG in NS (IVPB) 100 ML IV SCH (22:15)
[2021-12-04] MEDS ORDERED: ONDANSETRON 4 MG/2 ML (SDV) Z0FRAN IV PRN (22:30)
[2021-12-04] MEDS ORDERED: fentaNYL INJ 100 MCG/2 ML AMP IV PRN (22:30)
[2021-12-04] MEDS ORDERED: VANCOMYCIN 1500 MG/NS 500 ML IVPB IV ONE ×2 (22:30)
[2021-12-04] MEDS: CLINDAMYCIN 600 MG/50 ML IVPB 50 ML IV SCH (22:40)
[2021-12-04] MEDS: diphenhydrAMINE 50 MG/ML INJ (BENADRYL) IVP PRN (22:41)
[2021-12-04] MEDS: NICOTINE 21 MG (NICODERM) PATCH TD SCH (22:42)
[2021-12-04] MEDS: LACTATED RINGERS 1,000 ML IV SCH (22:42)
[2021-12-04] MEDS: MEROPENEM 500 MG/NS 100 ML IVPB IV SCH ×2 (23:23)
[2021-12-04] MEDS ORDERED: VANCOMYCIN 750 MG/VIAL IV ONE ×2 (23:30→23:31)
[2021-12-04] MEDS ORDERED: NS IV 500 ML 500 ML ONE (23:31)
[2021-12-05 03:22] VITALS: BP 105/55
[2021-12-05] MEDS: MEROPENEM 500 MG/NS 100 ML IVPB IV SCH ×8 (03:55→21:33)
[2021-12-05] MEDS: LACTATED RINGERS 1,000 ML IV SCH ×3 (03:55→17:28)
[2021-12-05] MEDS: CLINDAMYCIN 600 MG/50 ML IVPB 50 ML IV SCH ×3 (05:21→21:33)
[2021-12-05 05:47] LABS: BASOPHILS % (AUTO) 0 % (0-10); EOSINOPHILS % (AUTO) 0 % (0-10); HEMATOCRIT 35 % (40-54); HEMOGLOBIN 11.7 g/dL (13.3-17.7); LYMPHOCYTES # (AUTO) 1.5 10^3/uL (1.0-4.0); LYMPHOCYTES % (AUTO) 15 % (12-44); MEAN CORPUSCULAR HEMOGLOBIN 29 pg (25-34); MEAN CORPUSCULAR HGB CONC 33 g/dL (32-36); MEAN CORPUSCULAR VOLUME 87 fL (80-99); MONOCYTES # (AUTO) 0.4 10^3/uL (0.0-1.0); MONOCYTES % (AUTO) 4 % (0-12); NEUTROPHILS # (AUTO) 8.3 10^3/uL (1.8-7.8); NEUTROPHILS % (AUTO) 81 % (42-75); PLATELET COUNT 231 10^3/uL (130-400); WHITE BLOOD COUNT 10.3 10^3/uL (4.3-11.0)
[2021-12-05 05:58] LABS: ALBUMIN 2.4 GM/DL (3.2-4.5)
[2021-12-05 05:59] LABS: POTASSIUM 4.1 MMOL/L (3.6-5.0)
[2021-12-05 06:00] LABS: CALCIUM 8.5 MG/DL (8.5-10.1)
[2021-12-05 06:01] LABS: TOTAL PROTEIN 5.9 GM/DL (6.4-8.2)
[2021-12-05 06:03] LABS: BILIRUBIN,TOTAL 0.5 MG/DL (0.1-1.0)
[2021-12-05 06:05] LABS: CREATININE SERUM 0.65 MG/DL (0.60-1.30)
[2021-12-05 07:19] VITALS: BP 119/70
--- NOTE | 2021-12-05 08:07 | History & Physical ---
EZEQUIEL WOODALL 12/05/21 0807: HPI History of Present Illness: Almas is a 61 y M with pmh of aFib who presented to the ED last night for weakness and pain. He is a poor historian. He states he has been more weak in the last two weeks most notably in his legs. He states he was supposed to see a spine doctor for problems with his back but has been unable to make arrangements to make the appointment. He states he has mild diffuse abdominal tenderness this morning that has persisted over the past few days. He says he is trying to maintain his fluid status at home with oral liquids but it has not improved the pain. He notes he has also not had a bowel movement for 1 week. Source: patient Exam Limitations: no limitations Attending Physician [facility] PCP Admitting Physician: Yola Cartwright MD Attending Physician: Yola Cartwright MD Consult Date of Admission Dec 04, 2021 at 18:50 Home Medications Home Medications Reviewed patient Home Medication Reconciliation performed by pharmacy medication reconciliations motion study technician and/or nursing. Patients Allergies have been reviewed. Allergies Coded Allergies: No Known Drug Allergies (Verified , 10/16/17) GBZ-Crwyho-Grihbj Hx Patient Social History Smoking Status: Current Everyday Smoker Recent Hopitalizations: No Alcohol Use?: No Substance type: Marijuana Tobacco type used: Cigarettes Have you traveled recently?: No Immunizations Up To Date Influenza Vaccine Up-to-Date: No; Not Current First/Initial COVID19 Vaccinat: UNKNOWN Second COVID19 Vaccination Skyler: UNKNOWN Third COVID19 Vaccination Date: UNKNOWN Family Medical History Significant Family History: No Pertinent Family Hx Review of Systems ([facility]) Constitutional: No chills, No diaphoresis, No dizziness, No fever EENTM: dental problems, mouth pain, mouth swelling Respiratory: No cough, No dyspnea on exertion, No short of breath Cardiovascular: no symptoms reported Gastrointestinal: abdominal pain (diffuse, unable to specify location), constipation Genitourinary: no symptoms reported Musculoskeletal: back pain Skin: no symptoms reported Psychiatric/Neurological: No Symptoms Reported Physical Exam-([facility]) Physical Exam Vital Signs VS - Last 72 Hours, by Label 12/04/21 12/04/21 12/04/21 12/04/21 15:35 21:02 21:03 21:15 Temp 37.8 39.2 39.2 Pulse 106 126 127 118 Resp 14 16 16 B/P (MAP) 124/79 (94) 122/68 (86) 123/60 (81) 125/59 (81) Pulse Ox 96 100 100 O2 Delivery Room Air Room Air Room Air 12/04/21 12/04/21 12/04/21 12/04/21 21:30 21:45 22:00 22:00 Pulse 107 100 108 99 B/P (MAP) 120/59 (79) 112/63 (79) 119/63 (81) 12/04/21 12/04/21 12/04/21 12/04/21 22:15 22:30 22:51 23:35 Temp 37.7 37.6 Pulse 106 110 101 101 Resp 16 20 B/P (MAP) 117/61 (79) 132/59 (83) 115/64 (81) 115/62 (79) Pulse Ox 99 97 O2 Delivery Room Air Room Air 12/05/21 12/05/21 12/05/21 12/05/21 00:07 01:03 03:22 07:09 Temp 36.9 Pulse 96 95 88 Resp 20 B/P (MAP) 105/55 (72) Pulse Ox 99 98 O2 Delivery Room Air Room Air 12/05/21 12/05/21 07:19 08:02 Temp 36.9 Pulse 91 Resp 20 B/P (MAP) 119/70 (86) Pulse Ox 97 O2 Delivery Room Air Room Air Capillary Refill : Less Than 3 Seconds General Appearance: mild distress HEENT: other (Gingival lesions on lower mouth with avalos-black exudate. Additional abrasion with erythema and swelling on chin below bottom lip possibly extending through entire bottom lip.) Neck: supple Respiratory: lungs clear, normal breath sounds, no respiratory distress Cardiovascular: regular rate, rhythm, no edema, no murmur Gastrointestinal: normal bowel sounds, soft, tenderness (mild and diffuse) Extremities: non-tender, other (bilateral 2/5 strength in bilat hip extension, 5/5 strength in ankle plantar and dorsiflexion) Skin: normal color, warm/dry Assessment/Plan Assessment/Plan Admission Dx Sepsis due to gingival infection Assessment & Plan 1. Sepsis due to gingival infection - Meropenem, Clindamycin and Vanc IV, consider Acyclovir for viral gingivitis - Wound culture. - CT Orbit showed gingival disease - CBC, CMP, blood culture, lactate - Pain control and fever control with Tylenol and IBU - Consult Surgery for debridement, transfer if necrotizing infection suspected 2. Constipation - Miralax - Continue to monitor 3. Lower Extremity weakness - Hx of MRI showing spinal stenosis - PT/OT - Neurosurgery consult outpatient YOLA CARTWRIGHT MD 12/05/21 1512: HPI History of Present Illness: Time Seen by Provider: 09:10 Home Medications Allergies Coded Allergies: No Known Drug Allergies (Verified , 10/16/17) Reviewed Test Results Reviewed Test Results Radiology CT max/face 12/04/21: IMPRESSION: 1. No evidence of acute facial fracture. 2. Periodontal disease. Recommend dental consultation. Physical Exam-([facility]) Physical Exam General Appearance: no apparent distress HEENT: other (Foul cherry slough below 4 mid lower teeth with almost no gum tissue seen, cherry slough on inner lower lip adjacent to this without clear ulceration, no crepitus. External below lower lip has similar appearing cherry slough on skin but without ulceration to the inner lip) Respiratory: lungs clear, normal breath sounds, no respiratory distress Cardiovascular: regular rate, rhythm, no murmur Peripheral Pulses: 2+ Dorsalis Pedis (R), 2+ Left Dors-Pedis (L) Gastrointestinal: normal bowel sounds, distended, tenderness (mild and diffuse) Extremities: no pedal edema Neurologic/Psychiatric: alert, normal mood/affect, oriented x 3, motor weakness (bilateral 3/5 strength in bilat hip extension, 5/5 strength in ankle plantar and dorsiflexion) Skin: other (scattered scabs on lower legs, no heel/foot wounds seen) Assessment/Plan Assessment/Plan Admission Status: Inpatient Order (span 2 midnights) Reason for Inpatient Admission: Suspect necrotizing gingivitis with severe sepsis Supervisory-Addendum Brief Verification & Attestation Participated in pt care: history, MDM, physical Personally performed: exam, history, MDM, supervision of care Care discussed with: Medical Student Procedures: n/a I personally saw and examined patient, see my physical exam for my exam findings. Our oral surgeon is out, and patient was unable to be transferred to multiple facilities last night due to capacity issues, ENT will be able to see him later today, but have asked Surgery for input on whether they suspect necrotizing fasciitis/cellulitis of lip. Initially started on amp and flagyl for necrotizing gingivitis, had red/itchy rash on arrival to floor, changed to meropenem as we wanted to broaden to cover for possible necrotizing cellulitis and avoiding PCN due to rash, added vancomycin and clindamycin as well. Will review records for previous spine work-up. EZEQUIEL WOODALL Dec 05, 2021 08:07 YOLA CARTWRIGHT MD Dec 05, 2021 15:12
[2021-12-05] MEDS: NICOTINE 21 MG (NICODERM) PATCH TD SCH (09:00)
[2021-12-05] MEDS: VANCOMYCIN 1 GM/NS 250 ML IVPB IV SCH ×6 (09:00→23:36)
[2021-12-05 11:10] VITALS: BP 109/65
[2021-12-05] MEDS ORDERED: polyethylene glycoL POWDER 17 GM (MIRALAX) PACK PO NR (15:30)
--- NOTE | 2021-12-05 15:44 | Physical Therapy Evaluation ---
PT Evaluation-General Medical Diagnosis Admission Date Dec 04, 2021 at 18:50 Medical Diagnosis: Sepsis, oral necrotizing fasciitis Onset Date: Dec 04, 2021 Therapy Diagnosis Therapy Diagnosis: Gait deficit, strength deficit Height/Weight Height (Feet): 6 Height (Inches): 1.00 Weight (Pounds): 166 Weight (Ounces): 0.0 Precautions Precautions/Isolations: Contact Isolation, Fall Prevention, Standard Precautions Weight Bear Status Right Lower Extremity: Right Full Weight Bearing Left Lower Extremity: Left Full Weight Bearing Referral Physician: Dr. Stout Reason for Referral: Evaluation/Treatment Medical History Reviewed History: Yes Social History Home: Current Living Status: Homeless Prior Prior Level of Function SCALE: Activities may be completed with or without assistive devices. 7-Oilyzwmbwm-slflkkr completes the activity by him/herself with no assistance from a helper. 5-Set-up or Clean-up Assistance-helper sets up or cleans up; patient completes activity. [place] assists only prior to or following the activity. 4-Supervision or Touching Assistance-helper provides verbal cues and/or touching/steadying and/or contact guard assistance as patient completes ac tivity. Assistance may be provided throughout the activity or intermittently. 3-Partial/Moderate Assistance-helper does LESS THAN HALF the effort. [place] lifts, holds or supports trunk or limbs, but provides less than half the effort. 2-Substantial/Maximal Assistance-helper does MORE THAN HALF the effort. [place] lifts or holds trunk or limbs and provides more than half the effort. 9-[place]-cfggkd does ALL the effort. Patient does none of the effort to complete the activity. Or, the assistance of 2 or more helpers is required for the patient to complete the activity. If activity was not attempted, code reason: 7-Patient Refused. 9-Not Applicable-not attempted and the patient did not perform the activity before the current illness, exacerbation or injury. 10-Not Attempted due to Environmental Limitations-(lack of equipment, weather restraints, etc.). 88-Not Attempted due to Medical Conditions or Safety Concerns. Bed Mobility: 6 Transfers (B,C,W/C): 6 Gait: 6 Stairs: 6 Indoor Mobility (Ambulation): Independent Stairs: Independent Prior Devices Use: None PT Evaluation-Current Subjective Patient lying supine in bed upon PT arrival, agreeable to treatment. Patient rates pain at 5/10 currently, "all over". Objective Patient Orientation: Person, Place, Time, Situation Attachments: IV ROM/Strength ROM Lower Extremities WFLs all planes bilaterally Strength Lower Extremities 3-/5 bilaterally all planes Sensory Vision: Functional Hearing: Functional Sensation Right Lower Extremit: Intact Sensation Left Lower Extremity: Intact Transfers Roll Left to Right (QC): 3 Sit to Lying (QC): 3 Lying to Sitting/Side of Bed(Q: 3 Sit to Stand (QC): 3 Chair/Hvc-ha-Krysu Xfer(QC): 3 Gait Does the Patient Walk?: No and Walking Goal IS indicated Mode of Locomotion: Walk Anticipated Mode of Locomotion: Walk Balance Sitting Static: Fair Sitting Dynamic: Fair Standing Static: Poor Standing Dynamic: Poor Assessment/Needs Patient tolerated treatment poorly. He requires min/mod A for all observed bed mobility and transfers. As soon as he stood up he requested to sit down and was unable to maintain an upright, erect posture. Patient demonstrates significant strength deficit and poor endurance. Patient in bed post treatment with all needs met, nursing notified, call light in reach. Rehab Potential: Fair Equipment Needs FWW PT Longterm Goals Aircraft Mechanic Armament Goals PT Longterm Goals Time Frame: Dec 22, 2021 Roll Left & Right (QC): 6 Sit to Lying (QC): 6 Lying-Sitting on Side/Bed(QC): 6 Sit to Stand (QC): 6 Chair/Lto-ww-Pwwbv Xfer(QC): 6 Toilet Transfer (QC): 6 Does the Patient Walk: Yes Walk 10 feet (QC): 4 Walk 50ft with 2 Turns (QC): 4 Walk 150 ft (QC): 4 1 Step (curb) (QC): 4 4 Steps (QC): 4 PT Plan Problem List Problem List: Activity Tolerance, Functional Strength, Safety, Balance, Gait, Transfer, Bed Mobility, ROM Treatment/Plan Treatment Plan: Continue Plan of Care Treatment Plan: Bed Mobility, Education, Functional Activity Kika, Functional Strength, Group Therapy, Gait, Safety, Therapeutic Exercise, Transfers Treatment Duration: Dec 22, 2021 Frequency: 6 times per week Estimated Hrs Per Day: .25 hour per day Patient and/or Family Agrees t: Yes Safety Risks/Education Patient Education: Gait Training, Transfer Techniques Teaching Recipient: Patient Teaching Methods: Demonstration, Discussion Response to Teaching: Reinforcement Needed Time/GCodes Time In: 1525 Time Out: 1537 Total Billed Treatment Time: 12 Total Billed Treatment Visit, KENYON Walker PT Dec 05, 2021 15:44
[2021-12-05 16:00] VITALS: BP 120/66
[2021-12-05] MEDS: ACYCLOVIR INJECTION 500 MG in NS (IVPB) 100 ML IV SCH ×2 (16:06→23:34)
--- NOTE | 2021-12-05 17:17 | Progress Note ---
Standard Progress Note Progress Notes/Assess & Plan Date Seen by a Provider: Dec 05, 2021 Time Seen by a Provider: 17:00 Progress/Assessment & Plan ENT-Balbina Pressley seen and evaluated he couldnt really give me much history ct reviewed-no abscess-poor dentition good airway Exam ORal CAvity-foul smelling breath with teeth in poor condition erosion seen anterior to the poor teeth-evarything is consistent with dental infection no sign swelling in submental region-he has some skin changes on the anterior chin on cleocin and multiple antibiotics needs to go home on cleocin needs to see a dentist after acute infect and get the teeth pulled-otherwise he will be back if hte ulcer doesnt heal with the antibiotics and removal of teeth then could be seen as an outpatient Final Diagnosis Dental Infectin without abscess poor Dentition Focused Exam Lactate Level 12/04/21 15:47: Lactic Acid Level 2.19*H 12/05/21 00:10: Lactic Acid Level 1.22 IMAN GARCIA MD Dec 05, 2021 17:17
--- NOTE | 2021-12-05 19:34 | CONSULTATION REPORT ---
DATE OF SERVICE: 12/05/2021 ADMITTING PHYSICIAN: Dr. Stout. ATTENDING WHARF TENDER HELPER: Larisa Tian APRN. HISTORY OF PRESENT ILLNESS: The patient is a 61-year-old male who was brought to the Emergency Department for progressive weakness. The patient is a poor historian; however, after looking at previous EMR records, some of his history was obtained. Friend states that the patient has not been acting himself and has been confused as well as very lethargic and weak in the lower extremities. He does report that he has a history of degenerative joint disease and did undergo an MRI at some point of the spine and stated he needed surgery; however, never followed up with [facility]. The patient is homeless and is currently living in a hotel. We were consulted for gingivitis with inflammation of the lower right incisor with an area of what appears to be loss of tooth and fibrino-exudative material consistent with an infection. There is no surrounding edema, erythema, bulla or crepitance to indicate a necrotizing soft tissue infection. He also does not report any fever, no chills. PAST MEDICAL HISTORY: Degenerative joint disease, neuropathy, atrial fibrillation. PAST SURGICAL HISTORY: None known. ALLERGIES: NO KNOWN DRUG ALLERGIES. MEDICATIONS: Cyclobenzaprine 10 mg q.6 hours p.r.n. SOCIAL HISTORY: Positive smoke 40 pack years. Positive for marijuana. Negative alcohol. FAMILY HISTORY: Noncontributory. VITAL SIGNS: Temperature 37.1, blood pressure 109/65, pulse 88, respirations 18, pulse ox 97% on room air. REVIEW OF SYSTEMS: This is a well-nourished male currently in no acute distress. He is not experiencing any shortness of breath or difficulty breathing. No chest pain, palpitations or diaphoresis. No nausea or vomiting. No diarrhea or constipation. No fever or chills. No recent inadvertent weight loss. All other review of systems negative. PHYSICAL EXAMINATION: CHEST: Scattered wheezes bilaterally. HEART: Regular, no murmurs. EXTREMITIES: No lower extremity edema, negative Homans sign. HEENT: No scleral icterus. NECK: No cervical lymphadenopathy. ABDOMEN: Soft, nontender, nondistended. ORAL: There is an area along the lower right incisor where the tooth has gone and in the previous spot there is an area of fibrino-exudative material consistent with a gingival necrosis, most likely secondary to the high bacterial concentration within his mouth as well as smoking history as well as other medical comorbidities. At this time, there were no signs or symptoms of necrotizing soft tissue infection; however, at some point, the fibrino-exudative material likely needs to be debrided and we will allow ENT to evaluate the patient and need for debridement as necessary. Job ID: [id number] DocumentID: [id number] Dictated Date: 12/05/2021 15:47:09 Warehouse Order Picker Date: 12/05/2021 19:33:57 Dictated By: JESSICA JOVEL MD
[2021-12-05 19:49] VITALS: BP 119/76
[2021-12-05] MEDS: ENOXAPARIN 40 MG/0.4 ML (LOVENOX) SYR SQ SCH (21:33)
[2021-12-05] MEDS ORDERED: TROUGH ORDER-PHARMACY XX NR (23:00)
[2021-12-05 23:58] VITALS: BP_SYST 104; BP_SYST 118; BP_DIAS 67; BP_DIAS 75
[2021-12-06] MEDS: LACTATED RINGERS 1,000 ML IV SCH ×4 (01:10→16:40)
[2021-12-06] MEDS: MEROPENEM 500 MG/NS 100 ML IVPB IV SCH ×8 (04:20→21:13)
[2021-12-06 04:24] VITALS: BP 104/66
[2021-12-06 06:00] LABS: BASOPHILS % (AUTO) 0 % (0-10); EOSINOPHILS % (AUTO) 1 % (0-10); HEMATOCRIT 35 % (40-54); HEMOGLOBIN 11.7 g/dL (13.3-17.7); LYMPHOCYTES # (AUTO) 1.8 10^3/uL (1.0-4.0); LYMPHOCYTES % (AUTO) 35 % (12-44); MEAN CORPUSCULAR HEMOGLOBIN 29 pg (25-34); MEAN CORPUSCULAR HGB CONC 33 g/dL (32-36); MEAN CORPUSCULAR VOLUME 87 fL (80-99); MEAN PLATELET VOLUME 9.2 fL (9.0-12.2); MONOCYTES # (AUTO) 0.5 10^3/uL (0.0-1.0); MONOCYTES % (AUTO) 10 % (0-12); NEUTROPHILS # (AUTO) 2.7 10^3/uL (1.8-7.8); NEUTROPHILS % (AUTO) 54 % (42-75); PLATELET COUNT 247 10^3/uL (130-400); WHITE BLOOD COUNT 5.1 10^3/uL (4.3-11.0)
[2021-12-06] MEDS: CLINDAMYCIN 600 MG/50 ML IVPB 50 ML IV SCH ×3 (06:11→21:13)
[2021-12-06 06:26] LABS: ALBUMIN 2.5 GM/DL (3.2-4.5); POTASSIUM 4.1 MMOL/L (3.6-5.0)
[2021-12-06 06:27] LABS: CALCIUM 8.6 MG/DL (8.5-10.1)
[2021-12-06 06:28] LABS: TOTAL PROTEIN 6.1 GM/DL (6.4-8.2)
[2021-12-06 06:30] LABS: BILIRUBIN,TOTAL 0.3 MG/DL (0.1-1.0)
[2021-12-06 06:32] LABS: CREATININE SERUM 0.65 MG/DL (0.60-1.30)
[2021-12-06 07:46] VITALS: BP 128/69
[2021-12-06] MEDS: VANCOMYCIN 1 GM/NS 250 ML IVPB IV SCH ×4 (08:54→16:41)
[2021-12-06] MEDS: NICOTINE 21 MG (NICODERM) PATCH TD SCH (08:54)
[2021-12-06] MEDS: ACYCLOVIR INJECTION 500 MG in NS (IVPB) 100 ML IV SCH ×2 (08:54→16:40)
--- NOTE | 2021-12-06 11:08 | Physical Therapy Daily Note ---
PT Daily Note-Current Subjective Patient in bed pre tx, agrees to PT with encouragement, has 6-7/10 pain in right ankle. Patient states his left leg is weak and "feels like mush". Appearance Patient in recliner post tx with nurse call, phone, tray, all needs met. Mental Status Patient Orientation: Person, Place, Situation Attachments: IV Transfers SCALE: Activities may be completed with or without assistive devices. 4-Ixlnsviyjy-losvfhb completes the activity by him/herself with no assistance from a helper. 5-Set-up or Clean-up Assistance-helper sets up or cleans up; patient completes activity. [place] assists only prior to or following the activity. 4-Supervision or Touching Assistance-helper provides verbal cues and/or touching/steadying and/or contact guard assistance as patient completes activity. Assistance may be provided throughout the activity or intermittently. 3-Partial/Moderate Assistance-helper does LESS THAN HALF the effort. [place] lifts, holds or supports trunk or limbs, but provides less than half the effort. 2-Substantial/Maximal Assistance-helper does MORE THAN HALF the effort. [place] lifts or holds trunk or limbs and provides more than half the effort. 8-Diflbwoce-zwcikr does ALL the effort. Patient does none of the effort to complete the activity. Or, the assistance of 2 or more helpers is required for the patient to complete the activity. If activity was not attempted, code reason: 7-Patient Refused. 9-Not Applicable-not attempted and the patient did not perform the activity before the current illness, exacerbation or injury. 10-Not Attempted due to Environmental Limitations-(lack of equipment, weather restraints, etc.). 88-Not Attempted due to Medical Conditions or Safety Concerns. Roll Left & Right (QC): 6 Lying to Sitting/Side of Bed(Q: 3 Sit to Stand (QC): 3 Chair/Kny-fx-Swzho Xfer(QC): 4 Weight Bearing Right Lower Extremity: Right Full Weight Bearing Left Lower Extremity: Left Full Weight Bearing Gait Training Distance: 20' Walk 10 feet (QC): 4 Gait Persons Needed: 1 Gait Assistive Device: FWW slow ambulation, antalgic Exercises Seated Therapy Exercises: Ankle pumps, Long arc quads Seated Reps: 15 Treatments bed mobility and transfers, ambulation, LE ROM Assessment Current Status: Fair Progress patient was not able to ambulate yesterday but did a little bit today PT Assisted Goals Assisted Goals PT Wash Driller Goals Time Frame: Dec 22, 2021 Roll Left & Right (QC): 6 Sit to Lying (QC): 6 Lying-Sitting on Side/Bed(QC): 6 Sit to Stand (QC): 6 Chair/Sfn-mt-Ruhdw Xfer(QC): 6 Toilet Transfer (QC): 6 Does the Patient Walk: Yes Walk 10 feet (QC): 4 Walk 50ft with 2 Turns (QC): 4 Walk 150 ft (QC): 4 1 Step (curb) (QC): 4 4 Steps (QC): 4 PT Plan Problem List Problem List: Activity Tolerance, Functional Strength, Safety, Balance, Gait, Transfer, Bed Mobility, ROM Treatment/Plan Treatment Plan: Continue Plan of Care Treatment Plan: Bed Mobility, Education, Functional Activity Kika, Functional Strength, Group Therapy, Gait, Safety, Therapeutic Exercise, Transfers Treatment Duration: Dec 22, 2021 Frequency: 6 times per week Estimated Hrs Per Day: .25 hour per day Patient and/or Family Agrees t: Yes Safety Risks/Education Patient Education: Gait Training, Transfer Techniques, Correct Positioning, Safety Issues Teaching Recipient: Patient Teaching Methods: Demonstration, Discussion Response to Teaching: Reinforcement Needed Time/GCodes Time In: 1036 Time Out: 1051 Total Billed Treatment Time: 15 Total Billed Treatment 1 visit FA CLAUDIA COLBY PT Dec 06, 2021 11:08
--- NOTE | 2021-12-06 11:18 | Occupational Therapy Eval ---
OT Evaluation-General/PLF Medical Diagnosis Admission Date Dec 04, 2021 at 18:50 Medical Diagnosis: Sepsis, oral necrotizing fasciitis Onset Date: Dec 04, 2021 Therapy Diagnosis Therapy Diagnosis: decreased ADL status Height/Weight Height (Feet): 6 Height (Inches): 1.00 Weight (Pounds): 166 Weight (Ounces): 0.0 Precautions Precautions/Isolations: Fall Prevention, Standard Precautions Referral Physician: Dr. Stout Referral Reason: Evaluation/Treatment Medical History Additional Medical History afib Current History ED due to weakness and pain Social History Home: homeless Current Living Status: Homeless ADL-Prior Level of Function SCALE: Activities may be completed with or without assistive devices. 0-Jlrcwkwsyj-kolsgck completes the activity by him/herself with no assistance from a helper. 5-Set-up or Clean-up Assistance-helper sets up or cleans up; patient completes activity. [place] assists only prior to or following the activity. 4-Supervision or Touching Assistance-helper provides verbal cues and/or touching/steadying and/or contact guard assistance as patient completes activity. Assistance may be provided throughout the activity or intermittently. 3-Partial/Moderate Assistance-helper does LESS THAN HALF the effort. [place] lifts, holds or supports trunk or limbs, but provides less than half the effort. 2-Substantial/Maximal Assistance-helper does MORE THAN HALF the effort. [place] lifts or holds trunk or limbs and provides more than half the effort. 1-Koirhsicp-daidlz does ALL the effort. Patient does none of the effort to complete the activity. Or, the assistance of 2 or more helpers is required for the patient to complete the activity. If activity was not attempted, code reason: 7-Patient Refused. 9-Not Applicable-not attempted and the patient did not perform the activity before the current illness, exacerbation or injury. 10-Not Attempted due to Environmental Limitations-(lack of equipment, weather restraints, etc.). 88-Not Attempted due to Medical Conditions or Safety Concerns. ADL PLOF Comments Pt reports IND with ADLs and functional mobility at [facility], no AD. He is homeless. Self Care: Independent Functional Cognition: Independent OT Current Status Subjective Pt in bed, states he is unable to do tasks when asked, but then able to complete. Pt appears to be self limiting. Mental Status/Objective Patient Orientation: Person, Place, Situation Attachments: IV Current Hand Dominance: Right Upper Extremity ROM WFL Upper Extremity Strength grossly 3+/5 ADL-Treatment Eating (QC): 6 (IND with liquid diet) On/Off Footwear (QC): 5 (set up with gripper socks.) Toileting Hygiene (QC): 4 (CGA in stand, pt able to wipe buttocks.) Other Treatments Pt in bed, able to don gripper socks at bed level with set up and encouragement, pt initially indicated he was unable to complete. Pt transferred to EOB, min A, then sit to stand, min A. Pt used FWW to transfer around bed and into recliner, CGA. Pt required cues for UE placement with transfers and cues for problem solving transfers. In order to increase BUE Strength and activity tolerance, pt completed x10 reps each of BUE shoulder flexion and front punch. Pt appears to be self limiting throughout tx, stating he can't do something, but then able to complete when he attempts. Post tx, pt in recliner, call light in reach and all needs met. Education OT Patient Education: Correct positioning, Energy conservation, Modified ADL techniques, Progress toward Goal/Update tx plan, Purpose of tx/functional activities, Rehab process Teaching Recipient: Patient Teaching Methods: Discussion Response to Teaching: Verbalize Understanding, Reinforcement Needed OT Jail Goals Jail Goals Time Frame: Dec 15, 2021 Eating (QC): 6 Oral Hygiene (QC): 6 Toileting Hygiene (QC): 6 Upper Body Dressing (QC): 5 Lower Body Dressing (QC): 5 On/Off Footwear (QC): 5 Additional Goals: 1-Demonstrate ADL Tasks, 2-Verbalize Understanding, 3- ImproveStrength/Kika 1=Demonstrate adherence to instructed precautions during ADL tasks. 2=Patient will verbalize/demonstrate understanding of assistive devices/modifications for ADL. 3=Patient will improve strength/tolerance for activity to enable patient to perform ADL's. OT Education/Plan Problem List/Assessment Assessment: Decreased Activ Tolerance, Decreased UE Strength, Impaired Funct Balance, Impaired I ADL's, Impaired Self-Care Skills Discharge Recommendations Plan/Recommendations: Continue POC Treatment Plan/Plan of Care Patient would benefit from OT for education, treatment and training to promote independence in ADL's, mobility, safety and/or upper extremity function for ADL's. Plan of Care: ADL Retraining, Functional Mobility, UE Funct Exercise/Act Treatment Duration: Dec 15, 2021 Frequency: 3 times per week (3-5 times per week) Rehab Potential: Fair Time/GCodes Start Time: 10:37 Stop Time: 10:52 Total Time Billed (hr/min): 15 Billed Treatment Time 1, MANUEL MILES OT Dec 06, 2021 11:18
--- NOTE | 2021-12-06 11:39 | Progress Note ---
EZEQUIEL WOODALL 12/06/21 1139: Subjective Subjective/Events-last exam Almas is a 61 y M with pmh of aFib who is currently being treated for oral infection and constipation. He states he is feeling about the same today and has no acute complaints. He notes his legs feel more weak today and that he was unable to participate in PT yesterday. He passed a bowel movement last night. Review of Systems General: No Chills HEENT: No Head Aches, No Visual Changes, No Dysphasia Pulmonary: No Dyspnea, No Cough Cardiovascular: No: Chest Pain, Palpitations Gastrointestinal: No: Nausea, Vomiting, Abdominal Pain, Constipation Genitourinary: No Dysuria Musculoskeletal: back pain Neurological: Weakness (BLE), Incoordination (unable to ambulate without assistance) Focused Exam Sepsis Stage: Sepsis (resolved) Lactate Level 12/04/21 15:47: Lactic Acid Level 2.19*H 12/05/21 00:10: Lactic Acid Level 1.22 Respiratory: Lungs Clear, Normal Breath Sounds, No Accessory Muscle Use Cardiovascular: No Murmur, Tachycardia (Irregular rhythm) Skin: normal color, warm/dry Objective Exam Last Set of Vital Signs Vital Signs Date Time Temp Pulse Resp B/P (MAP) Pulse Ox O2 Delivery O2 Flow Rate FiO2 12/06/21 07:46 36.8 70 18 128/69 (88) 94 Room Air Capillary Refill : Less Than 3 Seconds I&O Intake and Output 12/06/21 00:00 Intake Total 3310 ml Output Total 4050 ml Balance -740 ml Intake Oral 2810 ml IV Total 500 ml Output Urine Total 4050 ml # Bowel Movements 1 General: Alert, Oriented X3, Cooperative HEENT: Atraumatic, EOMI, Other (oral ulcer with cherry-black fibrinous exudate on lower jaw gingiva and lower lip) Heart: No Murmurs, Other (irrefular rhythm) Abdomen: Normal Bowel Sounds, Soft, No Tenderness Extremities: No Cyanosis, No Edema Skin: No Rashes Neuro: Normal Speech, Sensation Intact, Other (Decreased strength on bilat hip extension, normal strength ankle plantar and dorsiflexion) Psych/Mental Status: Mental Status NL, Mood NL Results/Procedures Lab Laboratory Tests 12/05/21 22:48: Vancomycin Level Trough 14.6 12/06/21 05:39: White Blood Count 5.1, Red Blood Count 4.08L, Hemoglobin 11.7L, Hematocrit 35L, Mean Corpuscular Volume 87, Mean Corpuscular Hemoglobin 29, Mean Corpuscular Hemoglobin Concent 33, Red Cell Distribution Width 14.6H, Platelet Count 247, Mean Platelet Volume 9.2, Immature Granulocyte % (Auto) 0, Neutrophils (%) (Auto) 54, Lymphocytes (%) (Auto) 35, Monocytes (%) (Auto) 10, Eosinophils (%) (Auto) 1, Basophils (%) (Auto) 0, Neutrophils # (Auto) 2.7, Lymphocytes # (Auto) 1.8, Monocytes # (Auto) 0.5, Eosinophils # (Auto) 0.0, Basophils # (Auto) 0.0, Immature Granulocyte # (Auto) 0.0, Sodium Level 137, Potassium Level 4.1, Chloride Level 106, Carbon Dioxide Level 21, Anion Gap 10, Blood Urea Nitrogen 10, Creatinine 0.65, Estimat Glomerular Filtration Rate 107, BUN/Creatinine Ratio 15, Glucose Level 113H, Calcium Level 8.6, Corrected Calcium 9.8, Total Bilirubin 0.3, Aspartate Amino Transf (AST/SGOT) 20, Alanine Aminotransferase (ALT/SGPT) 16, Alkaline Phosphatase 31L, Total Protein 6.1L, Albumin 2.5L Microbiology 12/04/21 Urine Culture - Preliminary, Resulted NO GROWTH 12/04/21 Blood Culture - Preliminary, Resulted No growth Radiology CT max/face 12/04/21: IMPRESSION: 1. No evidence of acute facial fracture. 2. Periodontal disease. Recommend dental consultation. Assessment/Plan Assessment/Plan Assessment & Plan 1. Sepsis due to gingival infection - Meropenem, Clindamycin and Vanc IV, consider Acyclovir for viral gingivitis - Wound culture. - CT Orbit showed gingival disease - CBC, CMP, blood culture, lactate - Pain control and fever control with Tylenol and IBU - Surgery recommends debridement 2. Irregular HR, History of afib - Cardiology consulted 3. Constipation - Miralax - Continue to monitor 4. Lower Extremity weakness - CT Lumbar/Sacrum to evaluate cause of LE weakness - Pt reports Hx of MRI showing spinal stenosis - PT/OT - Neurosurgery consult outpatient JYOTSNA CARTWRIGHT MD 12/06/21 [id number]: Supervisory-Addendum Brief Verification & Attestation Participated in pt care: history, MDM, physical Personally performed: exam, history, MDM, supervision of care Care discussed with: Medical Student Procedures: n/a I personally saw and examined patient and repeated the history which confirmed that documented by the medical student. We did start acyclovir for possible herpetic oral involvement. Requesting records from [facility] for his spinal imaging. Social work assisting with discharge planning, which is complex given he may need nursing facility but has currently no payer source. EZEQUIEL WOODALL Dec 06, 2021 11:39 JYOTSNA CARTWRIGHT MD Dec 06, 2021 13:47
[2021-12-06 11:45] VITALS: BP 135/83
--- NOTE | 2021-12-06 11:45 | Consultation-Cardiology ---
HPI-Cardiology Cardiology Consultation: Date of Consultation 12/06/21 Time Seen by a Provider: 11:40 Date of Admission 12-05-21 Attending Physician [facility] Admitting Physician Admitting Physician: Yola Stout MD Attending Physician: Yola Stout MD Consulting Physician Janiya Frost MD HPI: Chief Complaint: Reported h/o arrhythmia Mr. Bermudez is a 61 yr old male admitted to [facility] from the ED d/t increasing weakness and fatigue. He is homeless at current time living in [facility]. He states he fell at home "sometime" prior to this admission at which time he lost some teeth. Denies it being syncopal fall, states it is d/t his chronic leg weakness d/t his back pain. He reports he is supposed to be following with a neurologist at [facility] in [place], but has not followed up. He reports he was told he had an irregular heartbeat, but denies being told he had a-fib or flutter. He has seen Dr. Lund in the past d/t freq PVC's. He has not f/u with cardiology services since 2018 at which time it was for surgical clearance. He denies any c/o CP, palpitations, syncope or near syncope. He reports chronic SOB. He reports he smokes 1 1/2 PPD of cigs per day. He reports marijuana usage for chronic back pain. He reports he continues to feel tired. No c/o LE swelling. He states he does not take any medications. Review of Systems-Cardiology Review of Systems Constitutional: No chills, No fever; malaise, tiredness Eyes: No vision change Ears/Nose/Throat: ulcerations (loss of teeth) Respiratory: As described under HPI Cardiovascular: As described under HPI Gastrointestinal: No constipation, No diarrhea, No nausea, No vomiting Genitourinary: No dysuria, No hematuria Musculoskeletal: As describe under HPI Skin: other (abrasion to chin) Psychiatric/Neurological: depression; No seizure, No focal weakness, No syncope Hematologic: No bleeding abnormalities PBR-Dfzgjk-Bxfsgb Hx Patient Social History Smoking Status: Current Everyday Smoker Have you traveled recently?: No Alcohol Use?: No Substance type: Marijuana Pt feels they are or have been: No Tobacco type used: Cigarettes Past Medical History PMH As described under Assessment. Family Medical History Family Medical History: He denies any family h/o CAD Allergies and Home Medications Allergies Coded Allergies: No Known Drug Allergies (Verified , 10/16/17) Patient Home Medication List No Active Prescriptions or Reported Meds Physical Exam-Cardiology Physical Exam Vital Signs/I&O 12/12/21 12/12/21 12/12/21 12/12/21 00:20 04:21 07:32 08:00 Temp 37.1 36.6 36.7 Pulse 83 76 78 Resp B/P (MAP) 107/74 (85) 111/78 (89) 125/81 (96) Pulse Ox 96 97 96 O2 Delivery Room Air Room Air Room Air Room Air 12/12/21 00:00 Intake Total 1340 ml Output Total 1650 ml Balance -310 ml Capillary Refill : Less Than 3 Seconds Constitutional: AAO x 3, other (thin) HEENT: hearing is well preserved; No oral hygience is good (poor dention; abrasion to chin with scabbing) Neck: No carotid bruit; carotid pulses are 2 + bilaterally Respiratory: No accessory muscle use, No respiratory distress; chest expansion is symmetric, rhonchi (scattered), other (prolonged exp phase) Cardiovascular: regular rate-rhythm; No JVD; S1 and S2 Gastrointestinal: No tender; soft, audible bowel sounds Extremities: no lower extremity edema bilateral Neurologic/Psychiatric: grossly intact (moves all extremities) Skin: other (as noted above) Data Review Labs Laboratory Tests 12/12/21 05:25: White Blood Count 10.3, Red Blood Count 4.97, Hemoglobin 14.3, Hematocrit 43, Mean Corpuscular Volume 87, Mean Corpuscular Hemoglobin 29, Mean Corpuscular Hemoglobin Concent 33, Red Cell Distribution Width 15.2H, Platelet Count 389, Mean Platelet Volume 9.2, Immature Granulocyte % (Auto) 1, Neutrophils (%) (Auto) 49, Lymphocytes (%) (Auto) 39, Monocytes (%) (Auto) 9, Eosinophils (%) (Auto) 1, Basophils (%) (Auto) 1, Neutrophils # (Auto) 5.1, Lymphocytes # (Auto) 4.0, Monocytes # (Auto) 0.9, Eosinophils # (Auto) 0.1, Basophils # (Auto) 0.1, Immature Granulocyte # (Auto) 0.1, Sodium Level 135, Potassium Level 4.7, Chloride Level 101, Carbon Dioxide Level 21, Anion Gap 13, Blood Urea Nitrogen 18, Creatinine 0.76, Estimat Glomerular Filtration Rate 102, BUN/Creatinine Ratio 24, Glucose Level 91, Calcium Level 9.3, Corrected Calcium 9.9, Total Bilirubin 0.5, Aspartate Amino Transf (AST/SGOT) 21, Alanine Aminotransferase (ALT/SGPT) 16, Alkaline Phosphatase 33L, Total Protein 7.5, Albumin 3.2 Microbiology 12/04/21 Urine Culture - Final, Complete NO GROWTH 12/04/21 Blood Culture - Final, Complete No growth Radiology NAME: JENY BERMUDEZ [facility] REC#: [id number] PT STATUS: REG ER : 1960 PHYSICIAN: NAZARIO MAKI MD ADMIT DATE: 12/04/21/ER Signed Date of Exam:12/04/21 CHEST 1 VIEW, AP/PA ONLY EXAMINATION: Chest 1 view HISTORY: Sepsis. COMPARISON: None available. FINDINGS: The lung volumes are normal. No focal consolidation is seen. Scattered mildly prominent interstitial markings are seen. Possible nodule is seen in the mid right lung measuring 1.0 cm. No large pleural effusion or pneumothorax is seen. The cardiomediastinal silhouette is normal in size and contour. No acute osseous abnormality is seen. IMPRESSION: 1. Possible nodule in the mid right lung measuring 1.[address] of the chest to further evaluate. 2. Mildly prominent interstitial markings which can be seen with chronic fibrotic changes. Superimposed edema or infection is also a possibility. Dictated by: Dictated on workstation # [id number] Dict: 12/04/21 160 Trans: 12/04/21 160 [facility] [id number] Interpreted by: BETH OTERO DO Electronically signed by: BETH OTERO DO 12/04/21 1607 NAME: JENY BERMUDEZ [facility] REC#: [id number] PT STATUS: REG ER : 1960 PHYSICIAN: NAZARIO MAKI MD ADMIT DATE: 12/04/21/ER Signed Date of Exam:12/04/21 CT CHEST W EXAMINATION: CT chest with intravenous contrast. TECHNIQUE: Multiple contiguous axial images were obtained through the chest after the uneventful administration of intravenous contrast. All CT scans use one or more of the following dose optimizing techniques: automated exposure control, MA and/or KvP adjustment based on patient size and exam type or iterative reconstruction. HISTORY: Chest pain. Trauma. COMPARISON: 12/04/2021. FINDINGS: The heart size is within normal limits. No pericardial effusion is present. Mildly prominent axillary lymph nodes are seen. No evidence of mediastinal lymphadenopathy. Centrilobular emphysema is seen in the lungs. A nodule seen in the right middle lobe measuring 1.1 cm. A nodule seen in the right lower lobe measuring 0.7 cm. Nodule in the left lung base measures 1.1 cm. Opacities are seen in the lung bases bilaterally, right greater than left. No central endobronchial obstructing lesions are identified. There is no pleural effusion or pneumothorax. The osseous structures demonstrate no acute abnormalities. Limited views of the upper abdominal structures demonstrate no acute abnormalities. Both adrenal glands are unremarkable. IMPRESSION: 1. Scattered nodules in the lungs measuring up to 1.1 cm. Recommend short interval follow-up in 3 months to ensure stability. PET/CT and percutaneous biopsy may not be as valuable due to the size of the nodules 2. Centrilobular emphysema. 3. Bibasilar opacities, likely representing atelectasis. Dictated by: Dictated on workstation # [id number] Dict: 12/04/211731 Trans: 12/04/211745 COUNTS INCLUDE 234 BEDS AT THE [facility] [id number] Interpreted by: BETH OTERO DO Electronically signed by: BETH OTERO DO 12/04/21 1746 NAME: JENY BERMUDEZ [facility] REC#: [id number] PT STATUS: REG ER : 1960 PHYSICIAN: NAZARIO MAKI MD ADMIT DATE: 12/04/21/ER Signed Date of Exam:12/04/21 CT MAXILLOFACIAL WO PROCEDURE: CT maxillofacial without contrast. TECHNIQUE: Multiple contiguous axial images were obtained through the facial bones without the use of intravenous contrast. Auto Exposure Controls were utilized during the CT exam to meet ALARA standards for radiation dose reduction. INDICATION: Facial trauma. Face pain. COMPARISON: None. FINDINGS: No acute fracture is seen in the mandible, zygomatic arches, or pterygoid plates. The bilateral TMJ have a normal appearance. The nasal bones demonstrate normal alignment. There is leftward deviation of the nasal septum without evidence of acute fracture. A prominent nasal spur is contacting the medial wall of the left maxillary sinus. The paranasal sinuses are clear. Small bilateral mastoid effusions. The globes and orbits are symmetric and unremarkable. The included intracranial contents have a normal appearance. The included upper cervical spine has a normal appearance. Periodontal disease is noted. IMPRESSION: 1. No evidence of acute facial fracture. 2. Periodontal disease. Recommend dental consultation. Dictated by: Dictated on workstation # [id number] Dict: 12/04/211727 Trans: 12/04/211744 [id number] Interpreted by: BETH OTERO DO Electronically signed by: BETH OTERO DO 12/04/21 1745 A/P-Cardiology Assessment/Admission Diagnosis UTI with Sepsis - management per medical services Significant dental dz - management per medical services Reports h/o irregular heartbeat - H/O PVC's - [place] [address] Lund - denies dx of a-fib or flutter Echocardiogram of 01-24-[address] Lund showed LVEF 55-65%. Grade 1 diastolic dysfunction Chronic back pain Tobaccoism - cessation advised Discussion and Recomendations UTI with sepsis - management per medical services ? arrhythmia reported by pt - denies a-fib/flutter - has a documented h/o in the past of PVC's - continue tele - low dose ASA Monitor lab - replace as indicated Further recs will be based on his hospital course We would like to thank Dr. Stout for this consult JORGE GRUBBS Dec 06, 2021 11:45
--- NOTE | 2021-12-06 14:45 | Consultation-Cardiology ---
HPI-Cardiology Cardiology Consultation: Date of Consultation 12/06/21 Time Seen by a Provider: 13:10 Date of Admission Attending Physician [facility] Admitting Physician Admitting Physician: Yola Stout MD Attending Physician: Yola Stout MD Consulting Physician DONALDO PORTER MD, MA, FACP, FACC, FSCAI, CCDS HPI: Chief Complaint: Reason for consultation: Reported h/o arrhythmia Mr. Bermudez is a 61 yr old male admitted to [facility] from the ED d/t increasing weakness and fatigue. He is homeless at current time living in [facility]. He states he fell at home "sometime" prior to this admission at which time he lost some teeth. Denies it being syncopal fall, states it is d/t his chronic leg weakness d/t his back pain. He reports he is supposed to be following with a neurologist at [facility] in [place], but has not followed up. He reports he was told he had an irregular heartbeat, but denies being told he had a-fib or flutter. He has seen Dr. Lund in the past d/t freq PVC's. He has not f/u with cardiology services since 2018 at which time it was for surgical clearance. He denies any c/o CP, palpitations, syncope or near syncope. He reports chronic SOB. He reports he smokes 1 1/2 PPD of cigs per day. He reports marijuana usage for chronic back pain. He reports he continues to feel tired. No c/o LE swelling. He states he does not take any medications. Review of Systems-Cardiology Review of Systems Constitutional: No chills, No fever; malaise, tiredness Eyes: No vision change Ears/Nose/Throat: ulcerations (loss of teeth) Respiratory: As described under HPI Cardiovascular: As described under HPI Gastrointestinal: No constipation, No diarrhea, No nausea, No vomiting Genitourinary: No dysuria, No hematuria Musculoskeletal: As describe under HPI Skin: other (abrasion to chin) Psychiatric/Neurological: depression; No seizure, No focal weakness, No syncope Hematologic: No bleeding abnormalities FVF-Klidws-Yantde Hx Patient Social History Smoking Status: Current Everyday Smoker Have you traveled recently?: No Alcohol Use?: No Substance type: Marijuana Pt feels they are or have been: No Tobacco type used: Cigarettes Past Medical History PMH As described under Assessment. Family Medical History Family Medical History: He denies any family h/o CAD Allergies and Home Medications Allergies Coded Allergies: No Known Drug Allergies (Verified , 10/16/17) Patient Home Medication List Home Medication List Reviewed: Yes No Active Prescriptions or Reported Meds Physical Exam-Cardiology Physical Exam Vital Signs/I&O 12/06/21 12/06/21 12/06/21 12/06/21 04:24 07:04 07:46 11:45 Temp 36.8 36.8 36.5 Pulse 101 90 70 54 Resp 18 18 18 B/P (MAP) 104/66 (79) 128/69 (88) 135/83 (100) Pulse Ox 98 94 96 O2 Delivery Room Air Room Air Room Air 12/06/21 12:54 Pulse 82 12/05/21 23:59 Intake Total 2360 ml Output Total 2150 ml Balance 210 ml Capillary Refill : Less Than 3 Seconds Constitutional: AAO x 3, other (thin) HEENT: hearing is well preserved; No oral hygience is good (poor dention; abrasion to chin with scabbing) Neck: No carotid bruit; carotid pulses are 2 + bilaterally Respiratory: No accessory muscle use, No respiratory distress; chest expansion is symmetric, rhonchi (scattered), other (prolonged exp phase) Cardiovascular: regular rate-rhythm; No JVD; S1 and S2 Gastrointestinal: No tender; soft, audible bowel sounds Extremities: no lower extremity edema bilateral Neurologic/Psychiatric: grossly intact (moves all extremities) Skin: normal color, warm/dry Data Review Labs Laboratory Tests 12/05/21 22:48: Vancomycin Level Trough 14.6 12/06/21 05:39: White Blood Count 5.1, Red Blood Count 4.08L, Hemoglobin 11.7L, Hematocrit 35L, Mean Corpuscular Volume 87, Mean Corpuscular Hemoglobin 29, Mean Corpuscular Hemoglobin Concent 33, Red Cell Distribution Width 14.6H, Platelet Count 247, Mean Platelet Volume 9.2, Immature Granulocyte % (Auto) 0, Neutrophils (%) (Auto) 54, Lymphocytes (%) (Auto) 35, Monocytes (%) (Auto) 10, Eosinophils (%) (Auto) 1, Basophils (%) (Auto) 0, Neutrophils # (Auto) 2.7, Lymphocytes # (Auto) 1.8, Monocytes # (Auto) 0.5, Eosinophils # (Auto) 0.0, Basophils # (Auto) 0.0, Immature Granulocyte # (Auto) 0.0, Sodium Level 137, Potassium Level 4.1, Chloride Level 106, Carbon Dioxide Level 21, Anion Gap 10, Blood Urea Nitrogen 10, Creatinine 0.65, Estimat Glomerular Filtration Rate 107, BUN/Creatinine Ratio 15, Glucose Level 113H, Calcium Level 8.6, Corrected Calcium 9.8, Total Bilirubin 0.3, Aspartate Amino Transf (AST/SGOT) 20, Alanine Aminotransferase (ALT/SGPT) 16, Alkaline Phosphatase 31L, Total Protein 6.1L, Albumin 2.5L Microbiology 12/04/21 Urine Culture - Final, Complete NO GROWTH 12/04/21 Blood Culture - Preliminary, Resulted No growth A/P-Cardiology Assessment/Admission Diagnosis PSVT - brief runs seen on tele during this hospitalization UTI with Sepsis - management per medical services Significant dental dz - management per medical services Reports h/o irregular heartbeat - H/O PVC's - [place] [address] Lund - denies dx of a-fib or flutter Echocardiogram of [address] Lund showed LVEF 55-65%. Grade 1 diastolic dysfunction Chronic back pain Tobaccoism - cessation advised Discussion and Recomendations UTI with sepsis - management per medical services SVT - denies a-fib/flutter - has a documented h/o in the past of PVC's - continue tele - low dose ASA - long-acting dilt Monitor lab - replace as indicated Further recs will be based on his hospital course We would like to thank Dr. Stout for this consult DONALDO PORTER MD FACP [facility] CCDS Dec 06, 2021 14:45
[2021-12-06 16:03] VITALS: BP 142/79
[2021-12-06] MEDS: ACETAMINOPHEN 500 MG TAB (TYLENOL) PO PRN (16:41)
[2021-12-06 19:25] VITALS: BP 99/54
[2021-12-06] MEDS: ENOXAPARIN 40 MG/0.4 ML (LOVENOX) SYR SQ SCH (21:13)
[2021-12-07] VITALS (7 sets, daily range): BP systolic 125–175; BP diastolic 57–93
[2021-12-07] MEDS: VANCOMYCIN 1 GM/NS 250 ML IVPB IV SCH ×4 (00:08→08:55)
[2021-12-07] MEDS: ACYCLOVIR INJECTION 500 MG in NS (IVPB) 100 ML IV SCH ×3 (00:09→16:37)
[2021-12-07] MEDS: MEROPENEM 500 MG/NS 100 ML IVPB IV SCH ×8 (04:10→22:37)
[2021-12-07] MEDS: LACTATED RINGERS 1,000 ML IV SCH (04:11)
[2021-12-07 06:04] LABS: BASOPHILS % (AUTO) 1 % (0-10); EOSINOPHILS # (AUTO) 0.1 10^3/uL (0.0-0.3); EOSINOPHILS % (AUTO) 1 % (0-10); HEMATOCRIT 40 % (40-54); HEMOGLOBIN 13.3 g/dL (13.3-17.7); LYMPHOCYTES % (AUTO) 33 % (12-44); MEAN CORPUSCULAR HEMOGLOBIN 28 pg (25-34); MEAN CORPUSCULAR HGB CONC 33 g/dL (32-36); MEAN CORPUSCULAR VOLUME 86 fL (80-99); MEAN PLATELET VOLUME 9.2 fL (9.0-12.2); MONOCYTES # (AUTO) 0.6 10^3/uL (0.0-1.0); MONOCYTES % (AUTO) 10 % (0-12); NEUTROPHILS # (AUTO) 3.3 10^3/uL (1.8-7.8); NEUTROPHILS % (AUTO) 55 % (42-75); PLATELET COUNT 290 10^3/uL (130-400)
[2021-12-07] MEDS: CLINDAMYCIN 600 MG/50 ML IVPB 50 ML IV SCH ×3 (06:08→22:38)
[2021-12-07 06:13] LABS: ALBUMIN 2.6 GM/DL (3.2-4.5); POTASSIUM 4.3 MMOL/L (3.6-5.0)
[2021-12-07 06:15] LABS: CALCIUM 8.7 MG/DL (8.5-10.1)
[2021-12-07 06:16] LABS: TOTAL PROTEIN 6.6 GM/DL (6.4-8.2)
[2021-12-07 06:18] LABS: BILIRUBIN,TOTAL 0.3 MG/DL (0.1-1.0)
[2021-12-07 06:20] LABS: CREATININE SERUM 0.67 MG/DL (0.60-1.30)
--- NOTE | 2021-12-07 08:38 | Progress Note - Cardiology ---
Cardiology SOAP Progress Note Subjective: Gen malaise Chronic low back pain and pain in the back of the thighs No cp or palp or syncope No swelling No n/v/d Objective: I&O/Vital Signs 12/07/21 12/07/21 12/07/21 12/07/21 00:12 01:00 04:00 07:00 Temp 36.7 37.3 Pulse 86 79 67 89 Resp 20 20 B/P (MAP) 143/93 (110) 175/69 (104) Pulse Ox 97 96 O2 Delivery Room Air Room Air 12/07/21 07:36 Temp 36.5 Pulse 88 Resp 18 B/P (MAP) 145/90 (108) Pulse Ox 96 O2 Delivery Room Air 12/06/21 23:59 Intake Total 2810 ml Output Total 4700 ml Balance -1890 ml Weight (Pounds): 166 Weight (Ounces): 0.0 Weight (Calculated Kilograms): 75.789519 Constitutional: AAO x 3, other (thin) Respiratory: No accessory muscle use, No respiratory distress; chest expansion is symmetric, rhonchi (scattered), other (prolonged exp phase) Cardiovascular: regular rate-rhythm; No JVD; S1 and S2 Gastrointestional: No tender; soft, audible bowel sounds Extremities: no lower extremity edema bilateral Neurologic/Psychiatric: grossly intact (moves all extremities) Skin: normal color, warm/dry Results/Procedures: Labs Laboratory Tests 12/07/21 05:20: White Blood Count 6.0, Red Blood Count 4.68, Hemoglobin 13.3, Hematocrit 40, Mean Corpuscular Volume 86, Mean Corpuscular Hemoglobin 28, Mean Corpuscular Hemoglobin Concent 33, Red Cell Distribution Width 14.4, Platelet Count 290, Mean Platelet Volume 9.2, Immature Granulocyte % (Auto) 1, Neutrophils (%) (Auto) 55, Lymphocytes (%) (Auto) 33, Monocytes (%) (Auto) 10, Eosinophils (%) (Auto) 1, Basophils (%) (Auto) 1, Neutrophils # (Auto) 3.3, Lymphocytes # (Auto) 2.0, Monocytes # (Auto) 0.6, Eosinophils # (Auto) 0.1, Basophils # (Auto) 0.0, Immature Granulocyte # (Auto) 0.0, Sodium Level 135, Potassium Level 4.3, Chloride Level 103, Carbon Dioxide Level 20L, Anion Gap 12, Blood Urea Nitrogen 9, Creatinine 0.67, Estimat Glomerular Filtration Rate 106, BUN/Creatinine Ratio 13, Glucose Level 102, Calcium Level 8.7, Corrected Calcium 9.8, Total Bilirubin 0.3, Aspartate Amino Transf (AST/SGOT) 19, Alanine Aminotransferase (ALT/SGPT) 12, Alkaline Phosphatase 29L, Total Protein 6.6, Albumin 2.6L Microbiology 12/04/21 Urine Culture - Final, Complete NO GROWTH 12/04/21 Blood Culture - Preliminary, Resulted No growth Laboratory Tests 12/06/21 05:39 12/07/21 05:20 A/P: Assessment: PSVT - brief runs seen on tele during this hospitalization UTI with Sepsis - management per medical services Significant dental dz - management per medical services Reports h/o irregular heartbeat - H/O PVC's - [place] [address] Lund - denies dx of a-fib or flutter Echocardiogram of [address] Lund showed LVEF 55-65%. Grade 1 diastolic dysfunction Chronic back pain Tobaccoism - cessation advised Plan: * Increase long-acting dilt (still having PSVT w/o bradycardia) * Continue ASA * Echo * Monitor and correct labs DONALDO PORTER MD [facility] Dec 07, 2021 08:38
[2021-12-07] MEDS: NICOTINE 21 MG (NICODERM) PATCH TD SCH (08:54)
[2021-12-07] MEDS: ASPIRIN 81 MG CHEW (CHILDREN'S ASA) PO SCH (08:54)
--- NOTE | 2021-12-07 10:23 | CONSULTATION REPORT ---
DATE OF SERVICE: ENT CONSULT ROOM: 409. REFERRING PHYSICIAN: Dr. Stout. REASON FOR CONSULTATION: Possible neck abscess. HISTORY OF PRESENT ILLNESS: The patient was admitted to the hospital yesterday night because of a dental infection and possible sepsis. Over the past 24 hours, he has been on Cleocin, meropenem and Unasyn. When seen today, he had no complaints. His CT scan from admission was reviewed. It showed no evidence of an abscess. He did have poor dentition. He can offer really no other history. PHYSICAL EXAMINATION: Directed physical exam was done. ORAL CAVITY: No trismus present. He has extremely poor dentition and foul-smelling breath. He has an erosion present anterior to the lower teeth. It is unclear how long it has been there, but probably is chronic rather than acute. He has no swelling in the submental region. He has skin changes present on the anterior skin of the lower lip. There is no swelling of the floor of the mouth. He has good tongue mobility. He has a good airway present. Speech showed no hoarseness or stridor. NECK: As above. There is no swelling seen and no adenopathy palpable. IMPRESSION: 1. Chronic dental infection. 2. Poor dentition. RECOMMENDATIONS: The patient needs to continue the IV especially Cleocin, half strength hydrogen peroxide rinses would help cut some of the exudate and smell. There is no abscess to drain. He needs to go home on Cleocin and then see a dentist and have the teeth removed. If they are not removed, he will be back. Fortunately with this dental infection, it has broken through anteriorly and has not caused a Dante's angina. There are concerns. I am happy to see him. I am not planning on seeing back further unless his condition would worsen. Thank you for the consultation. Job ID: [id number] DocumentID: [id number] Dictated Date: 12/05/2021 17:24:33 Breaker Oiler Date: 12/05/2021 17:45:28 Dictated By: IMAN GARCIA MD
--- NOTE | 2021-12-07 10:33 | Physical Therapy Daily Note ---
PT Daily Note-Current Subjective Patient agrees to PT. Mental Status Patient Orientation: Normal For Age Attachments: IV Transfers SCALE: Activities may be completed with or without assistive devices. 0-Fgskzlqjba-avjxxml completes the activity by him/herself with no assistance from a helper. 5-Set-up or Clean-up Assistance-helper sets up or cleans up; patient completes activity. [place] assists only prior to or following the activity. 4-Supervision or Touching Assistance-helper provides verbal cues and/or touching/steadying and/or contact guard assistance as patient completes activity. Assistance may be provided throughout the activity or intermittently. 3-Partial/Moderate Assistance-helper does LESS THAN HALF the effort. [place] lifts, holds or supports trunk or limbs, but provides less than half the effort. 2-Substantial/Maximal Assistance-helper does MORE THAN HALF the effort. [place] lifts or holds trunk or limbs and provides more than half the effort. 0-Sbnmukbzo-hcgcxr does ALL the effort. Patient does none of the effort to complete the activity. Or, the assistance of 2 or more helpers is required for the patient to complete the activity. If activity was not attempted, code reason: 7-Patient Refused. 9-Not Applicable-not attempted and the patient did not perform the activity before the current illness, exacerbation or injury. 10-Not Attempted due to Environmental Limitations-(lack of equipment, weather restraints, etc.). 88-Not Attempted due to Medical Conditions or Safety Concerns. Sit to Stand (QC): 4 Weight Bearing Right Lower Extremity: Right Full Weight Bearing Left Lower Extremity: Left Full Weight Bearing Gait Training Distance: 250' Walk 10 feet (QC): 4 Walk 50 ft with 2 Turns(QC): 4 Walk 150 ft (QC): 4 Gait Assistive Device: FWW SBA with slow steady gait sequence with FWW Assessment Patient much improved on this date. PT to increase activity as tolerated by patient. Patient remains up in recliner with needs met. Physician notified of progress. 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 PT [facility] Goals Time Frame: Dec 22, 2021 Roll Left & Right (QC): 6 Sit to Lying (QC): 6 Lying-Sitting on Side/Bed(QC): 6 Sit to Stand (QC): 6 Chair/Lgw-xy-Cqjjk Xfer(QC): 6 Toilet Transfer (QC): 6 Does the Patient Walk: Yes Walk 10 feet (QC): 4 Walk 50ft with 2 Turns (QC): 4 Walk 150 ft (QC): 4 1 Step (curb) (QC): 4 4 Steps (QC): 4 PT Plan Treatment/Plan Treatment Plan: Continue Plan of Care Treatment Plan: Bed Mobility, Education, Functional Activity Kika, Functional Strength, Group Therapy, Gait, Safety, Therapeutic Exercise, Transfers Treatment Duration: Dec 22, 2021 Frequency: 6 times per week Estimated Hrs Per Day: .25 hour per day Patient and/or Family Agrees t: Yes Time/GCodes Time In: 1000 Time Out: 1015 Total Billed Treatment Time: 15 Total Billed Treatment 1 visit FA 15 min GENNARO CHAN PT Dec 07, 2021 10:33
--- NOTE | 2021-12-07 10:38 | Progress Note ---
JOSE CJAYSONCARRIE 12/07/21 1038: Subjective Subjective/Events-last exam Jeny is a 61 y M with pmh of aFib who is currently being treated for oral infection, constipation adn irregular heart rhythm. His mentation has improved but he states he is feeling more uncomfortable with increased back pain today. He is having small bowel movements but states his abdomen still feels full. He requests fluids to be stopped. Review of Systems General: No Chills, No Fatigue HEENT: No Head Aches, No Visual Changes, No Dysphasia Pulmonary: No Dyspnea, No Cough Cardiovascular: No: Chest Pain, Palpitations Gastrointestinal: Constipation (Has made small BM's, still feels constipated); No: Nausea, Vomiting, Abdominal Pain Genitourinary: No Dysuria, No Frequency Musculoskeletal: back pain Neurological: No: Weakness, Numbness Focused Exam Lactate Level 12/04/21 15:47: Lactic Acid Level 2.19*H 12/05/21 00:10: Lactic Acid Level 1.22 Respiratory: Chest Non Tender, Normal Breath Sounds, No Accessory Muscle Use, No Respiratory Distress Cardiovascular: No Edema, No Murmur (Irregular Rhythm) Skin: normal color, warm/dry, cyanosis Objective Exam Last Set of Vital Signs Vital Signs Date Time Temp Pulse Resp B/P (MAP) Pulse Ox O2 Delivery O2 Flow Rate FiO2 12/07/21 08:00 Room Air 12/07/21 07:36 36.5 88 18 145/90 (108) 96 Capillary Refill : Less Than 3 Seconds I&O Intake and Output 12/07/21 00:00 Intake Total 4020 ml Output Total 5900 ml Balance -1880 ml Intake Oral 1960 ml IV Total 1510 ml Tube Feeding 550 ml Output Urine Total 5900 ml # Bowel Movements 4 General: Alert, Oriented X3, Cooperative, No Acute Distress HEENT: Atraumatic, EOMI Neck: Supple Lungs: Clear to Auscultation Heart: No Murmurs, Other (Irregular rhythm) Abdomen: Normal Bowel Sounds, Soft, No Tenderness Extremities: No Clubbing, No Cyanosis, No Edema Skin: Other (Ulcerated lesion inferior to bottom lip, white fibrinous purulunce) Neuro: Normal Speech, Cranial Nerves 3-12 NL, Other (BLE hip flexion 4/5 today, platnar and dorsiflexion 5/5 strength) Results/Procedures Lab Laboratory Tests 12/07/21 05:20: White Blood Count 6.0, Red Blood Count 4.68, Hemoglobin 13.3, Hematocrit 40, Mean Corpuscular Volume 86, Mean Corpuscular Hemoglobin 28, Mean Corpuscular Hemoglobin Concent 33, Red Cell Distribution Width 14.4, Platelet Count 290, Mean Platelet Volume 9.2, Immature Granulocyte % (Auto) 1, Neutrophils (%) (Auto) 55, Lymphocytes (%) (Auto) 33, Monocytes (%) (Auto) 10, Eosinophils (%) (Auto) 1, Basophils (%) (Auto) 1, Neutrophils # (Auto) 3.3, Lymphocytes # (Auto) 2.0, Monocytes # (Auto) 0.6, Eosinophils # (Auto) 0.1, Basophils # (Auto) 0.0, Immature Granulocyte # (Auto) 0.0, Sodium Level 135, Potassium Level 4.3, Chloride Level 103, Carbon Dioxide Level 20L, Anion Gap 12, Blood Urea Nitrogen 9, Creatinine 0.67, Estimat Glomerular Filtration Rate 106, BUN/Creatinine Ratio 13, Glucose Level 102, Calcium Level 8.7, Corrected Calcium 9.8, Total Bilirubin 0.3, Aspartate Amino Transf (AST/SGOT) 19, Alanine Aminotransferase (ALT/SGPT) 12, Alkaline Phosphatase 29L, Total Protein 6.6, Albumin 2.6L Microbiology 12/04/21 Urine Culture - Final, Complete NO GROWTH 12/04/21 Blood Culture - Preliminary, Resulted No growth Radiology NAME: JENY LUCIO REC#: [id number] PT STATUS: REG ER : 1960 PHYSICIAN: NAZARIO MAKI MD ADMIT DATE: 12/04/21/ER Signed Date of Exam:12/04/21 CHEST 1 VIEW, AP/PA ONLY EXAMINATION: Chest 1 view HISTORY: Sepsis. COMPARISON: None available. FINDINGS: The lung volumes are normal. No focal consolidation is seen. Scattered mildly prominent interstitial markings are seen. Possible nodule is seen in the mid right lung measuring 1.0 cm. No large pleural effusion or pneumothorax is seen. The cardiomediastinal silhouette is normal in size and contour. No acute osseous abnormality is seen. IMPRESSION: 1. Possible nodule in the mid right lung measuring 1.[address] of the chest to further evaluate. 2. Mildly prominent interstitial markings which can be seen with chronic fibrotic changes. Superimposed edema or infection is also a possibility. Dictated by: Dictated on workstation # [id number] Dict: 12/04/211601 Trans: 12/04/211606 [facility] [id number] Interpreted by: BETH OTERO DO Electronically signed by: BETH OTERO DO 12/04/21 1607 NAME: JENY LUCIO [facility] REC#: [id number] PT STATUS: REG ER : 1960 PHYSICIAN: NAZARIO MAKI MD ADMIT DATE: 12/04/21/ER Signed Date of Exam:12/04/21 CT CHEST W EXAMINATION: CT chest with intravenous contrast. TECHNIQUE: Multiple contiguous axial images were obtained through the chest after the uneventful administration of intravenous contrast. All CT scans use one or more of the following dose optimizing techniques: automated exposure control, MA and/or KvP adjustment based on patient size and exam type or iterative reconstruction. HISTORY: Chest pain. Trauma. COMPARISON: 12/04/2021. FINDINGS: The heart size is within normal limits. No pericardial effusion is present. Mildly prominent axillary lymph nodes are seen. No evidence of mediastinal lymphadenopathy. Centrilobular emphysema is seen in the lungs. A nodule seen in the right middle lobe measuring 1.1 cm. A nodule seen in the right lower lobe measuring 0.7 cm. Nodule in the left lung base measures 1.1 cm. Opacities are seen in the lung bases bilaterally, right greater than left. No central endobronchial obstructing lesions are identified. There is no pleural effusion or pneumothorax. The osseous structures demonstrate no acute abnormalities. Limited views of the upper abdominal structures demonstrate no acute abnormalities. Both adrenal glands are unremarkable. IMPRESSION: 1. Scattered nodules in the lungs measuring up to 1.1 cm. Recommend short interval follow-up in 3 months to ensure stability. PET/CT and percutaneous biopsy may not be as valuable due to the size of the nodules 2. Centrilobular emphysema. 3. Bibasilar opacities, likely representing atelectasis. Dictated by: Dictated on workstation # [id number] Dict: 12/04/211731 Trans: 12/04/21 174 [facility] [id number] Interpreted by: BETH OTERO DO Electronically signed by: BETH OTERO DO 12/04/211745 NAME: JENY LUCIO [facility] REC#: [id number] PT STATUS: REG ER : 1960 PHYSICIAN: NAZARIO MAKI MD ADMIT DATE: 12/04/21/ER Signed Date of Exam:12/04/21 CT MAXILLOFACIAL WO PROCEDURE: CT maxillofacial without contrast. TECHNIQUE: Multiple contiguous axial images were obtained through the facial bones without the use of intravenous contrast. Auto Exposure Controls were utilized during the CT exam to meet ALARA standards for radiation dose reduction. INDICATION: Facial trauma. Face pain. COMPARISON: None. FINDINGS: No acute fracture is seen in the mandible, zygomatic arches, or pterygoid plates. The bilateral TMJ have a normal appearance. The nasal bones demonstrate normal alignment. There is leftward deviation of the nasal septum without evidence of acute fracture. A prominent nasal spur is contacting the medial wall of the left maxillary sinus. The paranasal sinuses are clear. Small bilateral mastoid effusions. The globes and orbits are symmetric and unremarkable. The included intracranial contents have a normal appearance. The included upper cervical spine has a normal appearance. Periodontal disease is noted. IMPRESSION: 1. No evidence of acute facial fracture. 2. Periodontal disease. Recommend dental consultation. Dictated by: Dictated on workstation # [id number] Dict: 12/04/211727 Trans: 12/04/211744 [id number] Interpreted by: BETH OTERO DO Electronically signed by: BETH OTERO DO 12/04/21 1745 Assessment/Plan Assessment/Plan Assessment & Plan 1. Sepsis due to gingival infection - Meropenem, Clindamycin, Acyclovir for viral gingivitis - Stop Vancomycin - Wound culture. Consider wound care consult - CT Orbit showed gingival disease - CBC, CMP, blood culture wnl today - Pain control and fever control with Tylenol and IBU - ENT would like patient to go home on Cleocin and have pt follow up with Dentist for extraction 2. Irregular HR, History of afib - Cardiology consulted - EKG showed SVC's, pt started on ASA and Diltiazem 3. Constipation - Continue Miralax, making BMs 4. Lower Extremity weakness - Pt records received, show Hx of MRI showing mild spinal stenosis, facet arthritis and exit forminal stenosis - PT/OT - Patient able to ambulate today. - Neurosurgery/Orthopedic consult outpatient JYOTSNA CARTWRIGHT MD 12/07/21 1517: Supervisory-Addendum Brief Verification & Attestation Participated in pt care: history, MDM, physical Personally performed: exam, history, MDM, supervision of care Care discussed with: Medical Student Procedures: n/a I personally saw and examined patient and did my own exam. Exudate over gums and inner lips does appear to be receding some, external lower lip still similar, no through and through ulceration found. Will consult wound care since debridement isn't yet possible. EZEQUIEL WOODALL Dec 07, 2021 10:38 JYOTSNA CARTWRIGHT MD Dec 07, 2021 15:17
--- NOTE | 2021-12-07 11:35 | Wound Care Assessment ---
Wound Care Assessment Date Seen by Provider: Dec 07, 2021 Time Seen by Provider: 11:00 Chief Complaint Wound on inferior lip BALBINA Coburn is a 61yo M with a past medical history of degenerative joint disease and neuropathy. He presented to the emergency room on 12/04/21 with a chief complaint of progressive weakness. There were concerns for sepsis with the most likely source being a chronic dental infection. An orbit CT showed periodontal disease. He was admitted and started on IV antibiotics. He was consulted by cardiology for PSVT that is now being managed with Diltiazem and aspirin. ENT was consulted for the dental infection and it was recommended that the patient should be sent home on Cleocin and follow up with ENT for an extraction of the infected tooth. PT and OT have been working with the patient to help him regain strength. Patient was resting in bed at the beginning of the interview. The patient is a poor historian and does not know when the dental infection started or if he has ever seen a dentist for the infection. Patient states that the wound is tender when pressed on. The wound is on the anterior skin of his inferior lip and is unstageable due to slough and escar. The etiology of the wound is unknown, he denies any trauma to the area or remembering when he lost the teeth. The primary etiology is most likely a chronic dental infection and secondary etiology is poor dentition. Atrial fibrillation, sheltered homelessness Smoking Status: Current Everyday Smoker (48 pack years) Recreational Drug Use: Yes (Admits to cannabis use to help control his back pain) Alcohol Use: Denies Use Other Social Hx Is homeless and has been living out of a hotel recently Review of Systems General: No Chills, No Night Sweats; Fatigue HEENT: No Head Aches, No Visual Changes Pulmonary: No Dyspnea, No Cough Cardiovascular: No: Chest Pain, Palpitations Gastrointestinal: Constipation; No: Nausea, Vomiting Genitourinary: No Dysuria Neurological: Weakness Exam Vital Signs Date Time Temp Pulse Resp B/P (MAP) Pulse Ox O2 Delivery O2 Flow Rate FiO2 12/07/21 08:00 Room Air 12/07/21 07:36 36.5 88 18 145/90 (108) 96 Capillary Refill : Less Than 3 Seconds General Appearance: no apparent distress, thin HEENT: other (There is an erosion anterior to his lower teeth with a large amount of slough) Neck: non-tender, full range of motion, supple, normal inspection Cardiovascular: regular rate, rhythm, no murmur Respiratory: lungs clear, normal breath sounds Neurologic/Psychiatric: disoriented x 3 (Patient oriented to person and place but not to ) Skin: normal color, warm/dry Skin Problem Location: face (Inferior skin of lip) Wound is on the anterior skin of the lower lip. It measures 1x2x0.5 and is unstageable due to a large amount of slough and escar. It appears that the wound on the lip is contiguous with the dental infection. The margins are flat, there is no granulation, there is no epithelialization, there is a large amount of necrotic tissue. Results Laboratory Tests 12/07/21 05:20: White Blood Count 6.0, Red Blood Count 4.68, Hemoglobin 13.3, Hematocrit 40, Mean Corpuscular Volume 86, Mean Corpuscular Hemoglobin 28, Mean Corpuscular Hemoglobin Concent 33, Red Cell Distribution Width 14.4, Platelet Count 290, Mean Platelet Volume 9.2, Immature Granulocyte % (Auto) 1, Neutrophils (%) (Auto) 55, Lymphocytes (%) (Auto) 33, Monocytes (%) (Auto) 10, Eosinophils (%) (Auto) 1, Basophils (%) (Auto) 1, Neutrophils # (Auto) 3.3, Lymphocytes # (Auto) 2.0, Monocytes # (Auto) 0.6, Eosinophils # (Auto) 0.1, Basophils # (Auto) 0.0, Immature Granulocyte # (Auto) 0.0, Sodium Level 135, Potassium Level 4.3, Chloride Level 103, Carbon Dioxide Level 20L, Anion Gap 12, Blood Urea Nitrogen 9, Creatinine 0.67, Estimat Glomerular Filtration Rate 106, BUN/Creatinine Ratio 13, Glucose Level 102, Calcium Level 8.7, Corrected Calcium 9.8, Total Bilirubin 0.3, Aspartate Amino Transf (AST/SGOT) 19, Alanine Aminotransferase (ALT/SGPT) 12, Alkaline Phosphatase 29L, Total Protein 6.6, Albumin 2.6L Microbiology 12/04/21 Urine Culture - Final, Complete NO GROWTH 12/04/21 Blood Culture - Preliminary, Resulted No growth Assessment/Plan/Dx Assessment: Non-pressure chronic ulceration lower lip Chronic dental infection Sepsis Weakness Sheltered homelessness Plan: 1) Wound can be disinfected with Vashe. Half strength hydrogen peroxide rinses can also be done to help with the odor and exudate. Place silver alginate on the wound along with a dressing and tape. I do think he would benefit from lanre ridement of both intraoral and labial wounds. Thorough debridement to fully assess depth and severity of wound but also to send tissue for biopsy due to cancer risk with extensive smoking history. I cannot rule out malignancy in this patient currently. Dental or oral surgery follow up is certainly warranted for this issue. 2) Per ENT consult, patient should be discharged on Cleocin and follow up with dentistry for a tooth extraction 3) Wound was cultured, Abx may or may not be adjusted depending on results, currently on Clindamycin, Vancomycin, Meropenem, and Acyclovir 4) Continue working with PT and OT to regain strength Supervisory-Addendum Brief Verification & Attestation Participated in pt care: history, MDM, physical Personally performed: exam, history, MDM, supervision of care Care discussed with: Medical Student Procedures: n/a Results interpretation: Verified all documentation FRANCISCA Koenig MD Dec 07, 2021 11:35 ANGELIKA SMITH MD Dec 07, 2021 14:52
--- NOTE | 2021-12-07 11:40 | Occ Therapy Progress Note ---
Therapy Progress Note Pt refused to participate in skilled therapy. Attempted to encourage pt to participate in a variety of tasks to work with OT, pt continued to refuse. Will attempt at next available time. 1 refusal 5 min DAVID LEWIS Dec 07, 2021 11:40
--- NOTE | 2021-12-07 13:50 | Occupational Ther Daily Note ---
OT Current Status-Daily Note Subjective Pt lying supine, easily woke to name. Pt agrees to therapy. No c/o pain at this time. Mental Status/Objective Patient Orientation: Person, Place, Time, Situation Attachments: IV ADL-Treatment Pt requested to wash face, after supplies gathered completed by self. Therapy Code Descriptions/Definitions Functional [place] Measure: 0=Not Assessed/NA 4=Minimal Assistance 1=Total Assistance 5=Supervision or Setup 2=Maximal Assistance 6=Modified [place] 3=Moderate Assistance 7=Complete IndependenceSCALE: Activities may be completed with or without assistive devices. 7-Dbjzxhgazq-yvrkyrm completes the activity by him/herself with no assistance from a helper. 5-Set-up or Clean-up Assistance-helper sets up or cleans up; patient completes activity. [place] assists only prior to or following the activity. 4-Supervision or Touching Assistance-helper provides verbal cues and/or touching/steadying and/or contact guard assistance as patient completes activity. Assistance may be provided throughout the activity or intermittently. 3-Partial/Moderate Assistance-helper does LESS THAN HALF the effort. [place] lifts, holds or supports trunk or limbs, but provides less than half the effort. 2-Substantial/Maximal Assistance-helper does MORE THAN HALF the effort. [place] lifts or holds trunk or limbs and provides more than half the effort. 5-Gwrdagocv-zqsyrc does ALL the effort. Patient does none of the effort to complete the activity. Or, the assistance of 2 or more helpers is required for the patient to complete the activity. If activity was not attempted, code reason: 7-Patient Refused. 9-Not Applicable-not attempted and the patient did not perform the activity before the current illness, exacerbation or injury. 10-Not Attempted due to Environmental Limitations-(lack of equipment, weather restraints, etc.). 88-Not Attempted due to Medical Conditions or Safety Concerns. Other Treatment Pt completed 3 B UE exercises, 3 set 10 reps to strengthen B UE for daily functional tasks. Pt left lying supine call light/phone in reach. All needs met in room. OT Shelter Goals Shelter Goals Time Frame: Dec 15, 2021 Eating (QC): 6 Oral Hygiene (QC): 6 Toileting Hygiene (QC): 6 Upper Body Dressing (QC): 5 Lower Body Dressing (QC): 5 On/Off Footwear (QC): 5 Additional Goals: 1-Demonstrate ADL Tasks, 2-Verbalize Understanding, 3- ImproveStrength/Kika 1=Demonstrate adherence to instructed precautions during ADL tasks. 2=Patient will verbalize/demonstrate understanding of assistive devices/modifications for ADL. 3=Patient will improve strength/tolerance for activity to enable patient to perform ADL's. OT Education/Plan Problem List/Assessment Assessment: Decreased Activ Tolerance, Decreased UE Strength, Impaired Coordination, Impaired Funct Balance, Impaired Self-Care Skills Discharge Recommendations Plan/Recommendations: Continue POC Treatment Plan/Plan of Care Patient would benefit from OT for education, treatment and training to promote independence in ADL's, mobility, safety and/or upper extremity function for ADL's. Plan of Care: ADL Retraining, Functional Mobility, UE Funct Exercise/Act Treatment Duration: Dec 15, 2021 Frequency: 3 times per week (3-5 times per week) Rehab Potential: Fair Time/GCodes Start Time: 13:24 Stop Time: 13:37 Total Time Billed (hr/min): 13 Billed Treatment Time 1 visit Ex 1 (13 min) DAVID LEWIS Dec 07, 2021 13:50
[2021-12-07] MEDS ORDERED: TROUGH ORDER-PHARMACY XX ONE (15:00)
[2021-12-07] MEDS: ENOXAPARIN 40 MG/0.4 ML (LOVENOX) SYR SQ SCH (21:16)
[2021-12-07] MEDS: IBUPROFEN 800 MG (MOTRIN) TAB PO PRN (21:23)
[2021-12-08 03:34] VITALS: BP 123/79
[2021-12-08] MEDS: IBUPROFEN 800 MG (MOTRIN) TAB PO PRN (03:48)
[2021-12-08] MEDS: MEROPENEM 500 MG/NS 100 ML IVPB IV SCH ×8 (04:31→21:56)
[2021-12-08] MEDS: CLINDAMYCIN 600 MG/50 ML IVPB 50 ML IV SCH ×3 (06:15→22:58)
[2021-12-08 06:35] LABS: BASOPHILS % (AUTO) 1 % (0-10); EOSINOPHILS # (AUTO) 0.1 10^3/uL (0.0-0.3); EOSINOPHILS % (AUTO) 1 % (0-10); HEMATOCRIT 44 % (40-54); HEMOGLOBIN 14.7 g/dL (13.3-17.7); LYMPHOCYTES # (AUTO) 2.3 10^3/uL (1.0-4.0); LYMPHOCYTES % (AUTO) 36 % (12-44); MEAN CORPUSCULAR HEMOGLOBIN 29 pg (25-34); MEAN CORPUSCULAR HGB CONC 33 g/dL (32-36); MEAN CORPUSCULAR VOLUME 86 fL (80-99); MEAN PLATELET VOLUME 9.1 fL (9.0-12.2); MONOCYTES # (AUTO) 0.7 10^3/uL (0.0-1.0); MONOCYTES % (AUTO) 11 % (0-12); NEUTROPHILS # (AUTO) 3.2 10^3/uL (1.8-7.8); NEUTROPHILS % (AUTO) 50 % (42-75); PLATELET COUNT 317 10^3/uL (130-400); WHITE BLOOD COUNT 6.4 10^3/uL (4.3-11.0)
[2021-12-08 06:58] LABS: ALBUMIN 2.9 GM/DL (3.2-4.5); BILIRUBIN,TOTAL 0.4 MG/DL (0.1-1.0); CREATININE SERUM 0.75 MG/DL (0.60-1.30); POTASSIUM 4.4 MMOL/L (3.6-5.0); TOTAL PROTEIN 7.5 GM/DL (6.4-8.2)
[2021-12-08 07:29] VITALS: BP 120/75
--- NOTE | 2021-12-08 08:23 | Progress Note ---
EZEQUIEL WOODALL 12/08/21 0823: Subjective Subjective/Events-last exam Jeny is a 61 y M with pmh of aFib who is currently being treated for oral infection, constipation and irregular heart rhythm. Today he is very sleepy on exam. He stats he is feeling better and with no complaints. He has bandage covering lesion on lower lip. He does note R ankle pain on palpation. He is tolerating PT. Review of Systems General: No Chills, No Fatigue HEENT: No Head Aches, No Visual Changes Pulmonary: No Dyspnea, No Cough Cardiovascular: No: Chest Pain, Palpitations Gastrointestinal: No: Nausea, Vomiting, Abdominal Pain, Diarrhea, Constipation Genitourinary: No Dysuria, No Frequency Musculoskeletal: back pain Neurological: Incoordination (with ambulation) Objective Exam Last Set of Vital Signs Vital Signs Date Time Temp Pulse Resp B/P (MAP) Pulse Ox O2 Delivery O2 Flow Rate FiO2 12/08/21 07:29 36.6 60 16 120/75 (90) 97 Room Air Capillary Refill : Less Than 3 Seconds I&O Intake and Output 12/08/21 00:00 Intake Total 2860 ml Output Total 3525 ml Balance -665 ml Intake Oral 2550 ml IV Total 310 ml Output Urine Total 3525 ml # Bowel Movements 2 General: Alert, Oriented X3, Cooperative HEENT: Atraumatic, EOMI Neck: Supple Lungs: Clear to Auscultation, Normal Air Movement Heart: No Murmurs, Other (Irregular rhythm) Abdomen: Normal Bowel Sounds, Soft, No Tenderness Extremities: No Clubbing, No Cyanosis, No Edema, Other (Tenderness to palpation R ankle. symmetric 5/5 strength plantar and dorsiflexion) Skin: No Rashes, No Breakdown Neuro: Normal Speech, Sensation Intact Psych/Mental Status: Mental Status NL, Mood NL Results/Procedures Lab Laboratory Tests 12/07/21 15:08: Vancomycin Level Trough 11.6 12/08/21 05:57: White Blood Count 6.4, Red Blood Count 5.12, Hemoglobin 14.7, Hematocrit 44, Mean Corpuscular Volume 86, Mean Corpuscular Hemoglobin 29, Mean Corpuscular Hemoglobin Concent 33, Red Cell Distribution Width 14.7H, Platelet Count 317, Mean Platelet Volume 9.1, Immature Granulocyte % (Auto) 1, Neutrophils (%) (Auto) 50, Lymphocytes (%) (Auto) 36, Monocytes (%) (Auto) 11, Eosinophils (%) (Auto) 1, Basophils (%) (Auto) 1, Neutrophils # (Auto) 3.2, Lymphocytes # (Auto) 2.3, Monocytes # (Auto) 0.7, Eosinophils # (Auto) 0.1, Basophils # (Auto) 0.0, Immature Granulocyte # (Auto) 0.0, Sodium Level 135, Potassium Level 4.4, Chloride Level 103, Carbon Dioxide Level 22, Anion Gap 10, Blood Urea Nitrogen 10, Creatinine 0.75, Estimat Glomerular Filtration Rate 103, BUN/Creatinine Ratio 13, Glucose Level 88, Calcium Level 9.0, Corrected Calcium 9.9, Total Bilirubin 0.4, Aspartate Amino Transf (AST/SGOT) 20, Alanine Aminotransferase (ALT/SGPT) 15, Alkaline Phosphatase 32L, Total Protein 7.5, Albumin 2.9L Microbiology 12/04/21 Urine Culture - Final, Complete NO GROWTH 12/04/21 Blood Culture - Preliminary, Resulted No growth Radiology NAME: JENY LUCIO [facility] REC#: [id number] PT STATUS: REG ER : 1960 PHYSICIAN: NAZARIO MAKI MD ADMIT DATE: 12/04/21/ER Signed Date of Exam:12/04/21 CHEST 1 VIEW, AP/PA ONLY EXAMINATION: Chest 1 view HISTORY: Sepsis. COMPARISON: None available. FINDINGS: The lung volumes are normal. No focal consolidation is seen. Scattered mildly prominent interstitial markings are seen. Possible nodule is seen in the mid right lung measuring 1.0 cm. No large pleural effusion or pneumothorax is seen. The cardiomediastinal silhouette is normal in size and contour. No acute osseous abnormality is seen. IMPRESSION: 1. Possible nodule in the mid right lung measuring 1.[address] of the chest to further evaluate. 2. Mildly prominent interstitial markings which can be seen with chronic fibrotic changes. Superimposed edema or infection is also a possibility. Dictated by: Dictated on workstation # [id number] Dict: 12/04/21 1602 Trans: 12/04/21 1607 [facility] [id number] Interpreted by: BETH OTERO DO Electronically signed by: SHANNANICHOBETH G DO 12/04/21 1607 NAME: JENY LUCIO [facility] REC#: [id number] PT STATUS: REG ER : 1960 PHYSICIAN: NAZARIO MAKI MD ADMIT DATE: 12/04/21/ER Signed Date of Exam:12/04/21 CT CHEST W EXAMINATION: CT chest with intravenous contrast. TECHNIQUE: Multiple contiguous axial images were obtained through the chest after the uneventful administration of intravenous contrast. All CT scans use one or more of the following dose optimizing techniques: automated exposure control, MA and/or KvP adjustment based on patient size and exam type or iterative reconstruction. HISTORY: Chest pain. Trauma. COMPARISON: 12/04/2021. FINDINGS: The heart size is within normal limits. No pericardial effusion is present. Mildly prominent axillary lymph nodes are seen. No evidence of mediastinal lymphadenopathy. Centrilobular emphysema is seen in the lungs. A nodule seen in the right middle lobe measuring 1.1 cm. A nodule seen in the right lower lobe measuring 0.7 cm. Nodule in the left lung base measures 1.1 cm. Opacities are seen in the lung bases bilaterally, right greater than left. No central endobronchial obstructing lesions are identified. There is no pleural effusion or pneumothorax. The osseous structures demonstrate no acute abnormalities. Limited views of the upper abdominal structures demonstrate no acute abnormalities. Both adrenal glands are unremarkable. IMPRESSION: 1. Scattered nodules in the lungs measuring up to 1.1 cm. Recommend short interval follow-up in 3 months to ensure stability. PET/CT and percutaneous biopsy may not be as valuable due to the size of the nodules 2. Centrilobular emphysema. 3. Bibasilar opacities, likely representing atelectasis. Dictated by: Dictated on workstation # [id number] Dict: 12/04/211731 Trans: 12/04/211745 [facility] [id number] Interpreted by: BETH OTERO DO Electronically signed by: BETH OTERO DO 12/04/21 174 NAME: JENY LUCIO [facility] REC#: [id number] PT STATUS: REG ER : 1960 PHYSICIAN: NAZARIO MAKI MD ADMIT DATE: 12/04/21/ER Signed Date of Exam:12/04/21 CT MAXILLOFACIAL WO PROCEDURE: CT maxillofacial without contrast. TECHNIQUE: Multiple contiguous axial images were obtained through the facial bones without the use of intravenous contrast. Auto Exposure Controls were utilized during the CT exam to meet ALARA standards for radiation dose reduction. INDICATION: Facial trauma. Face pain. COMPARISON: None. FINDINGS: No acute fracture is seen in the mandible, zygomatic arches, or pterygoid plates. The bilateral TMJ have a normal appearance. The nasal bones demonstrate normal alignment. There is leftward deviation of the nasal septum without evidence of acute fracture. A prominent nasal spur is contacting the medial wall of the left maxillary sinus. The paranasal sinuses are clear. Small bilateral mastoid effusions. The globes and orbits are symmetric and unremarkable. The included intracranial contents have a normal appearance. The included upper cervical spine has a normal appearance. Periodontal disease is noted. IMPRESSION: 1. No evidence of acute facial fracture. 2. Periodontal disease. Recommend dental consultation. Dictated by: Dictated on workstation # [id number] Dict: 12/04/218 Trans: 12/04/21 1745 [id number] Interpreted by: BETH OTERO DO Electronically signed by: BETH OTERO DO 12/04/21 1745 Assessment/Plan Assessment/Plan Assessment & Plan 1. Sepsis due to gingival infection - Continue Meropenem, Clindamycin - Vancomycin stopped. - Wound culture. Consider wound care consult - CT Orbit showed gingival disease - CBC, CMP, blood culture wnl today - Pain control and fever control with Tylenol and IBU - Meeting via televisit with Oral surgeon today to discuss plan for debridment 2. Irregular HR, History of afib - Cardiology consulted - EKG showed SVC's - Continue ASA and Diltiazem per cardiology 3. Constipation - Resolved - Continue Miralax as needed, making BMs 4. Lower Extremity weakness - Pt records received, show Hx of MRI showing mild spinal stenosis, facet arthritis and exit foraminal stenosis - PT/OT - Patient tolerating PT/OT. - Neurosurgery/Orthopedic consult outpatient 5. R ankle pain - No osseous lesion or deformity on Xray foot/tibfib - Continue PT - Tylenol for pain control 6. Pulmonary Nodules - Per Radiology - Follow up 3 months JYOTSNA CARTWRIGHT MD 12/08/21 1512: Supervisory-Addendum Brief Verification & Attestation Participated in pt care: history, MDM, physical Personally performed: exam, history, MDM, supervision of care Care discussed with: Medical Student Procedures: n/a I personally saw and examined patient and directed the plan of care as documented. Met with dentist via televisit to discuss timing and scheduling outpatient for dental extractions. Will still need debridement prior to that, Dr. Roman will need to be consulted Saturday when he is back in town. EZEQUIEL WOODALL Dec 08, 2021 08:23 JYOTSNA CARTWRIGHT MD Dec 08, 2021 15:12
[2021-12-08] MEDS: NICOTINE 21 MG (NICODERM) PATCH TD SCH (08:41)
[2021-12-08] MEDS: ACYCLOVIR INJECTION 500 MG in NS (IVPB) 100 ML IV SCH ×3 (08:41)
[2021-12-08] MEDS: ASPIRIN 81 MG CHEW (CHILDREN'S ASA) PO SCH (08:41)
[2021-12-08] MEDS: NICOTINE PATCH REMOVAL TP SCH (08:42)
--- NOTE | 2021-12-08 09:24 | Physical Therapy Daily Note ---
PT Daily Note-Current Subjective Patient c/o being tired. He reports he didn't go to sleep until 3 a.m. Pain Section J - Health Conditions 1. Rarely or not at all 2. Occasionally 3. Frequently 4. Almost constantly 8. Unable to answer Pain Effect on Sleep: 1 Pain Interference with Therapy: 1 Pain Interference w/Day-to-Day: 2 Mental Status Patient Orientation: Normal For Age Attachments: IV Transfers SCALE: Activities may be completed with or without assistive devices. 0-Ednezswiaf-zlidxij completes the activity by him/herself with no assistance from a helper. 5-Set-up or Clean-up Assistance-helper sets up or cleans up; patient completes activity. [place] assists only prior to or following the activity. 4-Supervision or Touching Assistance-helper provides verbal cues and/or touching/steadying and/or contact guard assistance as patient completes activity. Assistance may be provided throughout the activity or intermittently. 3-Partial/Moderate Assistance-helper does LESS THAN HALF the effort. [place] lifts, holds or supports trunk or limbs, but provides less than half the effort. 2-Substantial/Maximal Assistance-helper does MORE THAN HALF the effort. [place] lifts or holds trunk or limbs and provides more than half the effort. 4-Dkmxybysb-ikggxi does ALL the effort. Patient does none of the effort to complete the activity. Or, the assistance of 2 or more helpers is required for the patient to complete the activity. If activity was not attempted, code reason: 7-Patient Refused. 9-Not Applicable-not attempted and the patient did not perform the activity before the current illness, exacerbation or injury. 10-Not Attempted due to Environmental Limitations-(lack of equipment, weather restraints, etc.). 88-Not Attempted due to Medical Conditions or Safety Concerns. Sit to Stand (QC): 4 Weight Bearing Right Lower Extremity: Right Full Weight Bearing Left Lower Extremity: Left Full Weight Bearing Gait Training Distance: 250' Walk 10 feet (QC): 4 Walk 50 ft with 2 Turns(QC): 4 Walk 150 ft (QC): 4 Gait Assistive Device: FWW very slow, steady gait sequence Assessment Patient requires time to complete all functional tasks. Patient remains up in recliner with chair alarm activated for patient's safety. Patient c/o fatigue. PT Halfway Goals Teachers Assistant Goals PT Teachers Assistant Goals Time Frame: Dec 22, 2021 Roll Left & Right (QC): 6 Sit to Lying (QC): 6 Lying-Sitting on Side/Bed(QC): 6 Sit to Stand (QC): 6 Chair/Yzv-xc-Peejx Xfer(QC): 6 Toilet Transfer (QC): 6 Does the Patient Walk: Yes Walk 10 feet (QC): 4 Walk 50ft with 2 Turns (QC): 4 Walk 150 ft (QC): 4 1 Step (curb) (QC): 4 4 Steps (QC): 4 PT Plan Treatment/Plan Treatment Plan: Continue Plan of Care Treatment Plan: Bed Mobility, Education, Functional Activity Kika, Functional Strength, Group Therapy, Gait, Safety, Therapeutic Exercise, Transfers Treatment Duration: Dec 22, 2021 Frequency: 6 times per week Estimated Hrs Per Day: .25 hour per day Patient and/or Family Agrees t: Yes Time/GCodes Time In: 853 Time Out: 909 Total Billed Treatment Time: 16 Total Billed Treatment 1 visit FA 16 min GENNARO CHAN PT Dec 08, 2021 09:24
--- NOTE | 2021-12-08 09:40 | Progress Note - Cardiology ---
Cardiology SOAP Progress Note Subjective: No cp or palp or syncope Chronic low back pain Gen weakness and malaise No n/v/d No focal weakness No swelling No fever/chills Objective: I&O/Vital Signs 12/07/21 12/08/21 12/08/21 12/08/21 23:54 01:00 03:34 07:00 Temp 37.3 37.0 Pulse 58 80 59 78 Resp 18 18 B/P (MAP) 146/90 (108) 123/79 (94) Pulse Ox 99 95 O2 Delivery Room Air Room Air 12/08/21 12/08/21 07:29 08:00 Temp 36.6 Pulse 60 Resp 16 B/P (MAP) 120/75 (90) Pulse Ox 97 O2 Delivery Room Air Room Air 12/08/21 00:00 Intake Total 2410 ml Output Total 1725 ml Balance 685 ml Weight (Pounds): 166 Weight (Ounces): 0.0 Weight (Calculated Kilograms): 75.646831 Constitutional: AAO x 3, other (thin) Respiratory: No accessory muscle use, No respiratory distress; chest expansion is symmetric, rhonchi (scattered), other (prolonged exp phase) Cardiovascular: regular rate-rhythm; No JVD; S1 and S2 Gastrointestional: No tender; soft, audible bowel sounds Extremities: no lower extremity edema bilateral Neurologic/Psychiatric: grossly intact (moves all extremities) Skin: normal color, warm/dry, cyanosis Results/Procedures: Labs Laboratory Tests 12/07/21 15:08: Vancomycin Level Trough 11.6 12/08/21 05:57: White Blood Count 6.4, Red Blood Count 5.12, Hemoglobin 14.7, Hematocrit 44, Katie n Corpuscular Volume 86, Mean Corpuscular Hemoglobin 29, Mean Corpuscular Hemoglobin Concent 33, Red Cell Distribution Width 14.7H, Platelet Count 317, Mean Platelet Volume 9.1, Immature Granulocyte % (Auto) 1, Neutrophils (%) (Auto) 50, Lymphocytes (%) (Auto) 36, Monocytes (%) (Auto) 11, Eosinophils (%) (Auto) 1, Basophils (%) (Auto) 1, Neutrophils # (Auto) 3.2, Lymphocytes # (Auto) 2.3, Monocytes # (Auto) 0.7, Eosinophils # (Auto) 0.1, Basophils # (Auto) 0.0, Immature Granulocyte # (Auto) 0.0, Sodium Level 135, Potassium Level 4.4, Chloride Level 103, Carbon Dioxide Level 22, Anion Gap 10, Blood Urea Nitrogen 10, Creatinine 0.75, Estimat Glomerular Filtration Rate 103, BUN/Creatinine Ratio 13, Glucose Level 88, Calcium Level 9.0, Corrected Calcium 9.9, Total Bilirubin 0.4, Aspartate Amino Transf (AST/SGOT) 20, Alanine Aminotransferase (ALT/SGPT) 15, Alkaline Phosphatase 32L, Total Protein 7.5, Albumin 2.9L Microbiology 12/04/21 Urine Culture - Final, Complete NO GROWTH 12/04/21 Blood Culture - Preliminary, Resulted No growth Laboratory Tests 12/07/21 05:20 12/08/21 05:57 A/P: Assessment: PSVT - brief runs seen on tele during this hospitalization - much improved on current dose of long-acting dilt UTI with Sepsis - management per medical services Significant dental dz - management per medical services Reports h/o irregular heartbeat - H/O PVC's - [place] [address] Lund - denies dx of a-fib or flutter Echocardiogram of 01-24-[address] Lund showed LVEF 55-65%. Grade 1 diastolic d ysfunction Chronic back pain Tobaccoism - cessation advised Plan: * Continue current regimen * Echo * Monitor and correct labs DONALDO PORTER MD [facility] CCDS Dec 08, 2021 09:40
--- NOTE | 2021-12-08 10:52 | Occ Therapy Progress Note ---
Therapy Progress Note OT tx attempted, but pt pleasantly declines OT services at this time. OT educated pt on purpose/benefit of OT, encouraging pt to complete ADLs or UE exercises, but pt continues to decline. Pt reports he recalls the exercises from yesterdays tx, and will complete them after he takes a nap. OT will attempt tx again at next available time. 1, refusal 1033 MANUEL PRADO OT Dec 08, 2021 10:52
[2021-12-08 12:16] VITALS: BP 122/71
--- NOTE | 2021-12-08 13:49 | Occupational Ther Daily Note ---
OT Current Status-Daily Note Subjective Pt in bed, agreeable to OT tx. Mental Status/Objective Attachments: IV ADL-Treatment Therapy Code Descriptions/Definitions Functional [place] Measure: 0=Not Assessed/NA 4=Minimal Assistance 1=Total Assistance 5=Supervision or Setup 2=Maximal Assistance 6=Modified [place] 3=Moderate Assistance 7=Complete IndependenceSCALE: Activities may be completed with or without assistive devices. 3-Uazxwxyxjf-wwwuysz completes the activity by him/herself with no assistance from a helper. 5-Set-up or Clean-up Assistance-helper sets up or cleans up; patient completes activity. [place] assists only prior to or following the activity. 4-Supervision or Touching Assistance-helper provides verbal cues and/or touching/steadying and/or contact guard assistance as patient completes activity. Assistance may be provided throughout the activity or intermittently. 3-Partial/Moderate Assistance-helper does LESS THAN HALF the effort. [place] lifts, holds or supports trunk or limbs, but provides less than half the effort. 2-Substantial/Maximal Assistance-helper does MORE THAN HALF the effort. [place] lifts or holds trunk or limbs and provides more than half the effort. 6-Znqpxrawd-ydvaho does ALL the effort. Patient does none of the effort to complete the activity. Or, the assistance of 2 or more helpers is required for the patient to complete the activity. If activity was not attempted, code reason: 7-Patient Refused. 9-Not Applicable-not attempted and the patient did not perform the activity before the current illness, exacerbation or injury. 10-Not Attempted due to Environmental Limitations-(lack of equipment, weather restraints, etc.). 88-Not Attempted due to Medical Conditions or Safety Concerns. Other Treatment Pt in bed, transferred supine to sit EOB independently. Pt transferred to recliner, SBA with FWW. Pt able to recall UE Exercises from previous session. As pt was completing shoulder flexion, staff present for ECHO procedure. Pt transferred back to bed, SBA with FWW, then supine with min encouragement to lift LEs into his bed. Post tx, pt in bed, call light in reach and all needs met, bed alarm activated. Education OT Patient Education: Correct positioning, Energy conservation, Modified ADL techniques, Progress toward Goal/Update tx plan, Purpose of tx/functional activities, Rehab process Teaching Recipient: Patient Teaching Methods: Discussion Response to Teaching: Verbalize Understanding OT Manager Materials Management Goals Jail Goals Time Frame: Dec 15, 2021 Eating (QC): 6 Oral Hygiene (QC): 6 Toileting Hygiene (QC): 6 Upper Body Dressing (QC): 5 Lower Body Dressing (QC): 5 On/Off Footwear (QC): 5 Additional Goals: 1-Demonstrate ADL Tasks, 2-Verbalize Understanding, 3- ImproveStrength/Kika 1=Demonstrate adherence to instructed precautions during ADL tasks. 2=Patient will verbalize/demonstrate understanding of assistive devices/modifications for ADL. 3=Patient will improve strength/tolerance for activity to enable patient to perform ADL's. OT Education/Plan Problem List/Assessment Assessment: Decreased Activ Tolerance, Decreased UE Strength, Impaired Funct Balance, Impaired I ADL's, Impaired Self-Care Skills Discharge Recommendations Plan/Recommendations: Continue POC Treatment Plan/Plan of Care Patient would benefit from OT for education, treatment and training to promote independence in ADL's, mobility, safety and/or upper extremity function for ADL's. Plan of Care: ADL Retraining, Functional Mobility, UE Funct Exercise/Act Treatment Duration: Dec 15, 2021 Frequency: 3 times per week (3-5 times per week) Rehab Potential: Fair Time/GCodes Start Time: 13:30 Stop Time: 13:45 Total Time Billed (hr/min): 15 Billed Treatment Time 1DONTA ADDISON OT Dec 08, 2021 13:49
[2021-12-08 15:48] VITALS: BP 100/63
[2021-12-08 19:40] VITALS: BP 120/61
[2021-12-08] MEDS: ENOXAPARIN 40 MG/0.4 ML (LOVENOX) SYR SQ SCH (20:49)
[2021-12-09 00:03] VITALS: BP 125/66
[2021-12-09 03:50] VITALS: BP 117/75
[2021-12-09] MEDS: MEROPENEM 500 MG/NS 100 ML IVPB IV SCH ×6 (04:15→15:32)
[2021-12-09] MEDS: CLINDAMYCIN 600 MG/50 ML IVPB 50 ML IV SCH ×2 (06:16→14:39)
[2021-12-09 08:10] VITALS: BP 133/76
[2021-12-09] MEDS: SENNA W/DOCUSATE (SENOKOT S) TABLET PO PRN ×2 (09:59→21:01)
[2021-12-09] MEDS: DOCUSATE SODIUM 100 MG (COLACE) CAP PO PRN ×2 (09:59→21:01)
[2021-12-09] MEDS: NICOTINE 21 MG (NICODERM) PATCH TD SCH (10:00)
[2021-12-09] MEDS: ASPIRIN 81 MG CHEW (CHILDREN'S ASA) PO SCH (10:00)
[2021-12-09] MEDS: NICOTINE PATCH REMOVAL TP SCH (10:01)
[2021-12-09] MEDS: HYPOCHLOROUS ACID/NaCl (VASHE) 250 ML IR SCH (10:11)
--- NOTE | 2021-12-09 10:44 | Progress Note - Hospitalist ---
Subjective HPI/CC On Admission Date Seen by Provider: Dec 09, 2021 Time Seen by Provider: 07:30 Subjective/Events-last exam Patient's only complaint is that he has not had a bowel movement for some time and does not feel that he will eat until his bowels move. He denies mouth pain and his appetite thus far is been good. He denies night sweats chills or fever. Objective Exam Vital Signs Vital Signs Date Time Temp Pulse Resp B/P (MAP) Pulse Ox O2 Delivery O2 Flow Rate FiO2 12/09/21 08:10 36.6 76 22 133/76 (95) 97 Room Air Capillary Refill : Less Than 3 Seconds General Appearance: No Apparent Distress HEENT: Other (Severe periodontal disease with tooth decay buccal mucosa slightly erythematous but there is no ulceration no facial swelling. Tongue does not reveal any evidence for swelling neck reveals no adenopathy. There is 1 black scab with no surrounding erythema or swelling in the mid khan portion below the lower lip.) Respiratory: No Accessory Muscle Use, No Respiratory Distress, Other ( Breath sounds diminished throughout equal bilateral. No wheezing rhonchi or rales noted.) Cardiovascular: Regular Rate, Rhythm, No Murmur, Other ( Somewhat distant heart tones.) Gastrointestinal: Normal Bowel Sounds, No Organomegaly, No Pulsatile Mass, Non Tender, Soft Results/Procedures Lab Patient resulted labs reviewed. Assessment/Plan Assessment and Plan Assess & Plan/Chief Complaint Assessment & Plan 1. Sepsis due to gingival infection Currently resolved. - Continue Meropenem, Clindamycin - Vancomycin stopped. - Wound culture. Consider wound care consult - CT Orbit showed gingival disease - CBC, CMP, blood culture wnl today - Pain control and fever control with Tylenol and IBU - Meeting via televisit with Oral surgeon today to discuss plan for debridment 2. Irregular HR, History of afib Reported currently regular rhythm last ECG from the reviewed revealing sinus rhythm with frequent PACs. - Cardiology consulted - EKG showed SVC's - Continue ASA and Diltiazem per cardiology 3. Constipation - Resolved - Continue Miralax as needed, making BMs 4. Lower Extremity weakness - Pt records received, show Hx of MRI showing mild spinal stenosis, facet arthritis and exit foraminal stenosis - PT/OT - Patient tolerating PT/OT. - Neurosurgery/Orthopedic consult outpatient 5. R ankle pain - No osseous lesion or deformity on Xray foot/tibfib - Continue PT - Tylenol for pain control 6. Pulmonary Nodules - Per Radiology - Follow up 3 months 7. Constipation we will give a dose of Senokot abdominal examination unremarkable. RADHA BURROUGHS MD Dec 09, 2021 10:44
[2021-12-09 11:13] LABS: EOSINOPHILS # (AUTO) 0.2 10^3/uL (0.0-0.3)
[2021-12-09 11:15] LABS: BASOPHILS # (AUTO) 0.1 10^3/uL (0.0-0.1); BASOPHILS % (AUTO) 1 % (0-10); EOSINOPHILS % (AUTO) 3 % (0-10); HEMATOCRIT 45 % (40-54); HEMOGLOBIN 14.8 g/dL (13.3-17.7); LYMPHOCYTES # (AUTO) 2.2 10^3/uL (1.0-4.0); LYMPHOCYTES % (AUTO) 30 % (12-44); MEAN CORPUSCULAR HEMOGLOBIN 29 pg (25-34); MEAN CORPUSCULAR HGB CONC 33 g/dL (32-36); MEAN CORPUSCULAR VOLUME 87 fL (80-99); MONOCYTES # (AUTO) 0.8 10^3/uL (0.0-1.0); MONOCYTES % (AUTO) 10 % (0-12); NEUTROPHILS # (AUTO) 4.2 10^3/uL (1.8-7.8); NEUTROPHILS % (AUTO) 56 % (42-75); PLATELET COUNT 183 10^3/uL (130-400); WHITE BLOOD COUNT 7.6 10^3/uL (4.3-11.0)
[2021-12-09 11:30] VITALS: BP 126/74
[2021-12-09 11:30] LABS: CALCIUM 9.3 MG/DL (8.5-10.1)
[2021-12-09 11:32] LABS: TOTAL PROTEIN 7.6 GM/DL (6.4-8.2)
[2021-12-09 11:33] LABS: BILIRUBIN,TOTAL 0.3 MG/DL (0.1-1.0)
[2021-12-09 11:35] LABS: CREATININE SERUM 0.77 MG/DL (0.60-1.30)
--- NOTE | 2021-12-09 11:39 | Physical Therapy Progress Note ---
Therapy Progress Note 0855: Pt supine in bed upon arrival to room. States he is very uncomfortable and has not been able to have a BM in a few days. Pt encouraged to get up and walk around, stating that this could help getting his bowels moving. Pt refuses any OOB activities and requests to come back at a later time. 1130: Pt asleep in bed upon arrival to room, able to arouse; however, pt opens his eyes and then goes back to sleep. No PT treatment this date. Will follow up on Saturday to continue POC 1 visit MARIANA GREGORIO PT Dec 09, 2021 11:39
--- NOTE | 2021-12-09 13:28 | Progress Note - Cardiology ---
Cardiology SOAP Progress Note Subjective: No cp or palp or syncope Notes gen malaise Notes vague abd discomfort and constipation No fever or chills Objective: I&O/Vital Signs 12/09/21 12/09/21 12/09/21 12/09/21 03:50 07:00 08:00 08:10 Temp 36.7 36.6 Pulse 80 78 76 Resp 16 22 B/P (MAP) 117/75 (89) 133/76 (95) Pulse Ox 97 97 O2 Delivery Room Air Room Air Room Air 12/09/21 12/09/21 11:30 12:27 Temp 36.6 Pulse 78 81 Resp 20 B/P (MAP) 126/74 (91) Pulse Ox 97 O2 Delivery Room Air 12/09/21 00:00 Intake Total 2020 ml Output Total 2820 ml Balance -800 ml Weight (Pounds): 166 Weight (Ounces): 0.0 Weight (Calculated Kilograms): 75.679179 Constitutional: AAO x 3, other (thin) Respiratory: No accessory muscle use, No respiratory distress; chest expansion is symmetric, rhonchi (scattered), other (prolonged exp phase) Cardiovascular: regular rate-rhythm; No JVD; S1 and S2 Gastrointestional: No tender; soft, audible bowel sounds Extremities: no lower extremity edema bilateral Neurologic/Psychiatric: grossly intact (moves all extremities) Skin: normal color, warm/dry, cyanosis Results/Procedures: Labs Laboratory Tests 12/09/21 11:00: White Blood Count 7.6, Red Blood Count 5.13, Hemoglobin 14.8, Hematocrit 45, Mean Corpuscular Volume 87, Mean Corpuscular Hemoglobin 29, Mean Corpuscular Hemoglobin Concent 33, Red Cell Distribution Width 14.8H, Platelet Count 183, Mean Platelet Volume 10.0, Immature Granulocyte % (Auto) 1, Neutrophils (%) (Auto) 56, Lymphocytes (%) (Auto) 30, Monocytes (%) (Auto) 10, Eosinophils (%) (Auto) 3, Basophils (%) (Auto) 1, Neutrophils # (Auto) 4.2, Lymphocytes # (Auto) 2.2, Monocytes # (Auto) 0.8, Eosinophils # (Auto) 0.2, Basophils # (Auto) 0.1, Immature Granulocyte # (Auto) 0.1, Percent Immature Platelet Fraction 6.4, Sodium Level 136, Potassium Level 5.0, Chloride Level 103, Carbon Dioxide Level 19L, Anion Gap 14, Blood Urea Nitrogen 10, Creatinine 0.77, Estimat Glomerular Filtration Rate 102, BUN/Creatinine Ratio 13, Glucose Level 99, Calcium Level 9.3, Corrected Calcium 10.1, Total Bilirubin 0.3, Aspartate Amino Transf (AST/SGOT) 23, Alanine Aminotransferase (ALT/SGPT) 15, Alkaline Phosphatase 31L, Total Protein 7.6, Albumin 3.0L Microbiology 12/04/21 Urine Culture - Final, Complete NO GROWTH 12/04/21 Blood Culture - Preliminary, Resulted No growth Laboratory Tests 12/08/21 05:57 12/09/21 11:00 A/P: Assessment: PSVT - brief runs seen on tele during this hospitalization, much improved on current dose of long-acting dilt - Echo 12/08/21: LVEF 50-55%, no RWMA UTI with Sepsis - management per Medical services Abd discomfort and constipation - management per Med svces Significant dental dz - management per medical services Reports h/o irregular heartbeat - H/O PVC's - evaluated [place] [address] Lund - denies dx of a-fib or flutter Chronic back pain Tobaccoism - cessation advised Plan: * Continue current cardiac regimen that has successfully controlled his PSVT * Monitor and correct labs DONALDO PORTER MD FACP [facility] CCDS Dec 09, 2021 13:28
[2021-12-09 15:39] VITALS: BP 114/66
[2021-12-09 19:45] VITALS: BP 105/65
[2021-12-09] MEDS: ENOXAPARIN 40 MG/0.4 ML (LOVENOX) SYR SQ SCH (21:01)
[2021-12-09] MEDS: polyethylene glycoL POWDER 17 GM (MIRALAX) PACK PO SCH (22:13)
[2021-12-09] MEDS: IBUPROFEN 800 MG (MOTRIN) TAB PO PRN (22:14)
[2021-12-09] MEDS: diphenhydrAMINE 50 MG/ML INJ (BENADRYL) IVP PRN (22:15)
[2021-12-10] VITALS: BP 115/66
[2021-12-10 03:49] VITALS: BP 119/82
[2021-12-10 05:53] LABS: BASOPHILS # (AUTO) 0.1 10^3/uL (0.0-0.1); BASOPHILS % (AUTO) 1 % (0-10); EOSINOPHILS # (AUTO) 0.2 10^3/uL (0.0-0.3); EOSINOPHILS % (AUTO) 3 % (0-10); HEMATOCRIT 44 % (40-54); HEMOGLOBIN 14.5 g/dL (13.3-17.7); LYMPHOCYTES # (AUTO) 2.8 10^3/uL (1.0-4.0); LYMPHOCYTES % (AUTO) 38 % (12-44); MEAN CORPUSCULAR HEMOGLOBIN 29 pg (25-34); MEAN CORPUSCULAR HGB CONC 33 g/dL (32-36); MEAN CORPUSCULAR VOLUME 86 fL (80-99); MEAN PLATELET VOLUME 8.9 fL (9.0-12.2); MONOCYTES # (AUTO) 0.7 10^3/uL (0.0-1.0); MONOCYTES % (AUTO) 10 % (0-12); NEUTROPHILS # (AUTO) 3.5 10^3/uL (1.8-7.8); NEUTROPHILS % (AUTO) 48 % (42-75); PLATELET COUNT 343 10^3/uL (130-400); WHITE BLOOD COUNT 7.3 10^3/uL (4.3-11.0)
[2021-12-10 06:10] LABS: ALBUMIN 2.9 GM/DL (3.2-4.5); BILIRUBIN,TOTAL 0.5 MG/DL (0.1-1.0); CALCIUM 9.2 MG/DL (8.5-10.1); CREATININE SERUM 0.75 MG/DL (0.60-1.30); POTASSIUM 4.2 MMOL/L (3.6-5.0)
[2021-12-10 07:39] VITALS: BP 134/82
[2021-12-10] MEDS: NICOTINE PATCH REMOVAL TP SCH (08:48)
[2021-12-10] MEDS: NICOTINE 21 MG (NICODERM) PATCH TD SCH (08:48)
[2021-12-10] MEDS: ASPIRIN 81 MG CHEW (CHILDREN'S ASA) PO SCH (08:48)
[2021-12-10] MEDS ORDERED: MILK OF MAGNESIA 400 MG/5 ML 30 ML UDC PO NR (09:00)
--- NOTE | 2021-12-10 09:31 | Progress Note - Hospitalist ---
Subjective HPI/CC On Admission Date Seen by Provider: Dec 10, 2021 Time Seen by Provider: 08:00 Subjective/Events-last exam Patient denies pain in mouth or otherwise currently. Could not tell me why he had a shot of fentanyl last night nor could the dayshift nurse. Bowels still have not moved since the having received Senokot and MiraLAX yesterday. Objective Exam Vital Signs Vital Signs Date Time Temp Pulse Resp B/P (MAP) Pulse Ox O2 Delivery O2 Flow Rate FiO2 12/10/21 08:00 Room Air 12/10/21 07:39 36.6 38 18 134/82 (99) 98 Capillary Refill : Less Than 3 Seconds General Appearance: No Apparent Distress Respiratory: No Accessory Muscle Use, No Respiratory Distress, Other (Dimin ished breath sounds otherwise clear anteriorly) Cardiovascular: Regular Rate, Rhythm, No Edema, No Gallop, No JVD, No Murmur, Normal Peripheral Pulses Gastrointestinal: Normal Bowel Sounds, No Organomegaly, No Pulsatile Mass, Non Tender, Soft Results/Procedures Lab Laboratory Tests 12/09/21 11:00 12/10/21 05:43 Patient resulted labs reviewed. Assessment/Plan Assessment and Plan Assess & Plan/Chief Complaint Assessment & Plan 1. Sepsis due to gingival infection Currently resolved. - Continue Meropenem, Clindamycin - Vancomycin stopped. - Wound culture. Consider wound care consult - CT Orbit showed gingival disease - CBC, CMP, blood culture wnl today - Pain control and fever control with Tylenol and IBU - Meeting via televisit with Oral surgeon today to discuss plan for debridment 2. Irregular HR, History of afib Reported currently regular rhythm last ECG from the reviewed revealing sinus rhythm with frequent PACs. - Cardiology consulted - EKG showed SVC's - Continue ASA and Diltiazem per cardiology 3. Constipation - We will discontinue fentanyl although its use has been sporadic and I suspect the diltiazem is the major culprit. Have asked Dr. Frost via text whether or not switch to beta-radha from diltiazem for paroxysmal atrial fibrillation would be an option. We will continue MiraLAX give a dose of milk of magnesia today. Abdominal examination unremarkable. 4. Lower Extremity weakness - Pt records received, show Hx of MRI showing mild spinal stenosis, facet arthritis and exit foraminal stenosis - PT/OT - Patient tolerating PT/OT. - Neurosurgery/Orthopedic consult outpatient 5. R ankle pain - No osseous lesion or deformity on Xray foot/tibfib - Continue PT - Tylenol for pain control 6. Pulmonary Nodules - Per Radiology - Follow up 3 months RADHA BURROUGHS MD Dec 10, 2021 09:31
[2021-12-10 11:38] VITALS: BP 114/68
--- NOTE | 2021-12-10 13:39 | Progress Note - Cardiology ---
Cardiology SOAP Progress Note Subjective: no cp or palp or syncope no shortness of breath gen weakness no n/v/d, but does have constipation Objective: I&O/Vital Signs 12/10/21 12/10/21 12/10/21 12/10/21 03:49 07:00 07:39 08:00 Temp 36.7 36.6 Pulse 75 75 38 Resp 16 18 B/P (MAP) 119/82 (94) 134/82 (99) Pulse Ox 97 98 O2 Delivery Room Air Room Air Room Air 12/10/21 12/10/21 12/10/21 09:33 11:38 12:20 Temp 36.9 Pulse 71 42 81 Resp 20 B/P (MAP) 114/68 (83) Pulse Ox 96 O2 Delivery Room Air 12/09/21 23:59 Intake Total 1750 ml Output Total 2450 ml Balance -700 ml Weight (Pounds): 166 Weight (Ounces): 0.0 Weight (Calculated Kilograms): 75.838777 Constitutional: AAO x 3, other (thin) Respiratory: No accessory muscle use, No respiratory distress; chest expansion is symmetric, rhonchi (scattered), other (prolonged exp phase) Cardiovascular: regular rate-rhythm; No JVD; S1 and S2 Gastrointestional: No tender; soft, audible bowel sounds Extremities: no lower extremity edema bilateral Neurologic/Psychiatric: grossly intact (moves all extremities) Skin: normal color, warm/dry, cyanosis Results/Procedures: Labs Laboratory Tests 12/10/21 05:43: White Blood Count 7.3, Red Blood Count 5.05, Hemoglobin 14.5, Hematocrit 44, Mean Corpuscular Volume 86, Mean Corpuscular Hemoglobin 29, Mean Corpuscular Hemoglobin Concent 33, Red Cell Distribution Width 14.9H, Platelet Count 343, Mean Platelet Volume 8.9L, Immature Granulocyte % (Auto) 1, Neutrophils (%) (Auto) 48, Lymphocytes (%) (Auto) 38, Monocytes (%) (Auto) 10, Eosinophils (%) (Auto) 3, Basophils (%) (Auto) 1, Neutrophils # (Auto) 3.5, Lymphocytes # (Auto) 2.8, Monocytes # (Auto) 0.7, Eosinophils # (Auto) 0.2, Basophils # (Auto) 0.1, Immature Granulocyte # (Auto) 0.1, Sodium Level 134L, Potassium Level 4.2, Chloride Level 102, Carbon Dioxide Level 21, Anion Gap 11, Blood Urea Nitrogen 13, Creatinine 0.75, Estimat Glomerular Filtration Rate 103, BUN/Creatinine Ratio 17, Glucose Level 108H, Calcium Level 9.2, Corrected Calcium 10.1, Total Bilirubin 0.5, Aspartate Amino Transf (AST/SGOT) 17, Alanine Aminotransferase (ALT/SGPT) 16, Alkaline Phosphatase 33L, Total Protein 7.0, Albumin 2.9L Microbiology 12/04/21 Urine Culture - Final, Complete NO GROWTH 12/04/21 Blood Culture - Preliminary, Resulted No growth Laboratory Tests 12/09/21 11:00 12/10/21 05:43 A/P: Assessment: PSVT - brief runs seen on tele during this hospitalization, much improved on current dose of long-acting dilt - Echo 12/08/21: LVEF 50-55%, no RWMA UTI with Sepsis - management per Medical services Abd discomfort and constipation - management per Med svces Significant dental dz - management per medical services Reports h/o irregular heartbeat - H/O PVC's - [place] [address] Lund - denies dx of a-fib or flutter Chronic back pain Tobaccoism - cessation advised Plan: * Continue current cardiac regimen that has successfully controlled his PSVT * Monitor and correct labs * Discussed with Dr Ashford who feels that constipation is due to Ca radha. Accordingly, stopping Ca blockers and switching to bb DONALDO PORTER MD FACP [facility] CCDS Dec 10, 2021 13:39
[2021-12-10 15:47] VITALS: BP 106/56
[2021-12-10] MEDS: ACETAMINOPHEN 500 MG TAB (TYLENOL) PO PRN (18:22)
[2021-12-10] MEDS: DOCUSATE SODIUM 100 MG (COLACE) CAP PO PRN (20:03)
[2021-12-10] MEDS: SENNA W/DOCUSATE (SENOKOT S) TABLET PO PRN (20:03)
[2021-12-10] MEDS: IBUPROFEN 800 MG (MOTRIN) TAB PO PRN (20:03)
[2021-12-10] MEDS: diphenhydrAMINE 50 MG/ML INJ (BENADRYL) IVP PRN (20:04)
[2021-12-10] MEDS: polyethylene glycoL POWDER 17 GM (MIRALAX) PACK PO SCH (20:04)
[2021-12-10] MEDS: ENOXAPARIN 40 MG/0.4 ML (LOVENOX) SYR SQ SCH (20:04)
[2021-12-10 20:24] VITALS: BP 113/65
[2021-12-11 00:01] VITALS: BP 104/67
[2021-12-11 03:41] VITALS: BP 109/67
[2021-12-11 06:09] LABS: BASOPHILS # (AUTO) 0.1 10^3/uL (0.0-0.1); BASOPHILS % (AUTO) 1 % (0-10); EOSINOPHILS # (AUTO) 0.2 10^3/uL (0.0-0.3); EOSINOPHILS % (AUTO) 2 % (0-10); HEMATOCRIT 42 % (40-54); LYMPHOCYTES # (AUTO) 3.4 10^3/uL (1.0-4.0); LYMPHOCYTES % (AUTO) 37 % (12-44); MEAN CORPUSCULAR HEMOGLOBIN 29 pg (25-34); MEAN CORPUSCULAR HGB CONC 33 g/dL (32-36); MEAN CORPUSCULAR VOLUME 87 fL (80-99); MEAN PLATELET VOLUME 9.3 fL (9.0-12.2); MONOCYTES # (AUTO) 1.1 10^3/uL (0.0-1.0); MONOCYTES % (AUTO) 12 % (0-12); NEUTROPHILS # (AUTO) 4.5 10^3/uL (1.8-7.8); NEUTROPHILS % (AUTO) 48 % (42-75); PLATELET COUNT 354 10^3/uL (130-400); WHITE BLOOD COUNT 9.2 10^3/uL (4.3-11.0)
[2021-12-11 06:21] LABS: POTASSIUM 4.6 MMOL/L (3.6-5.0)
[2021-12-11 06:22] LABS: CALCIUM 9.1 MG/DL (8.5-10.1)
[2021-12-11 06:23] LABS: TOTAL PROTEIN 7.1 GM/DL (6.4-8.2)
[2021-12-11 06:25] LABS: BILIRUBIN,TOTAL 0.4 MG/DL (0.1-1.0)
[2021-12-11 06:27] LABS: CREATININE SERUM 0.83 MG/DL (0.60-1.30)
[2021-12-11 08:20] VITALS: BP 112/74
[2021-12-11] MEDS: ASPIRIN 81 MG CHEW (CHILDREN'S ASA) PO SCH (08:38)
[2021-12-11] MEDS: NICOTINE 21 MG (NICODERM) PATCH TD SCH (08:38)
[2021-12-11] MEDS: meTOproloL SUCCINATE 50 MG (TOPROL XL) TAB PO SCH (08:39)
[2021-12-11] MEDS: NICOTINE PATCH REMOVAL TP SCH (08:39)
--- NOTE | 2021-12-11 09:28 | Occ Therapy Progress Note ---
Therapy Progress Note Pt lethargic, unable to wake pt. OT will attempt to see pt at next available time. DAVID LEWIS Dec 11, 2021 09:28
[2021-12-11] MEDS ORDERED: BISACODYL 10 MG SUPP (DULCOLAX) PR NR (10:30)
[2021-12-11] MEDS ORDERED: LACTULOSE SYRUP 10GM/15ML (ENULOSE) 30ML UDC PO NR (10:30)
--- NOTE | 2021-12-11 10:31 | Physical Therapy Daily Note ---
PT Daily Note-Current Subjective Patient agrees to PT. Denies patient at this time. Pain Section J - Health Conditions 1. Rarely or not at all 2. Occasionally 3. Frequently 4. Almost constantly 8. Unable to answer Pain Effect on Sleep: 1 Pain Interference with Therapy: 1 Pain Interference w/Day-to-Day: 2 Mental Status Patient Orientation: Normal For Age Transfers SCALE: Activities may be completed with or without assistive devices. 1-Dnixtaimsh-sjwlklo completes the activity by him/herself with no assistance from a helper. 5-Set-up or Clean-up Assistance-helper sets up or cleans up; patient completes activity. [place] assists only prior to or following the activity. 4-Supervision or Touching Assistance-helper provides verbal cues and/or touching/steadying and/or contact guard assistance as patient completes activity. Assistance may be provided throughout the activity or intermittently. 3-Partial/Moderate Assistance-helper does LESS THAN HALF the effort. [place] lifts, holds or supports trunk or limbs, but provides less than half the effort. 2-Substantial/Maximal Assistance-helper does MORE THAN HALF the effort. [place] lifts or holds trunk or limbs and provides more than half the effort. 1-Lglxwdiek-zppaig does ALL the effort. Patient does none of the effort to complete the activity. Or, the assistance of 2 or more helpers is required for the patient to complete the activity. If activity was not attempted, code reason: 7-Patient Refused. 9-Not Applicable-not attempted and the patient did not perform the activity before the current illness, exacerbation or injury. 10-Not Attempted due to Environmental Limitations-(lack of equipment, weather restraints, etc.). 88-Not Attempted due to Medical Conditions or Safety Concerns. Lying to Sitting/Side of Bed(Q: 6 Sit to Stand (QC): 4 Chair/Mrh-ty-Rproh Xfer(QC): 4 Weight Bearing Right Lower Extremity: Right Full Weight Bearing Left Lower Extremity: Left Full Weight Bearing Gait Training Distance: 300' Walk 10 feet (QC): 4 Walk 50 ft with 2 Turns(QC): 4 Walk 150 ft (QC): 4 Gait Assistive Device: FWW very slow gait sequence Exercises Seated Therapy Exercises: Ankle pumps, Long arc quads Seated Reps: 15 Assessment Patient tolerates treatment well and is up in recliner with needs met. Patient continues to c/o constipation. RN aware. PT Detention Goals Joint Finisher Goals PT Detention Goals Time Frame: Dec 22, 2021 Roll Left & Right (QC): 6 Sit to Lying (QC): 6 Lying-Sitting on Side/Bed(QC): 6 Sit to Stand (QC): 6 Chair/Rwm-tf-Azmev Xfer(QC): 6 Toilet Transfer (QC): 6 Does the Patient Walk: Yes Walk 10 feet (QC): 4 Walk 50ft with 2 Turns (QC): 4 Walk 150 ft (QC): 4 1 Step (curb) (QC): 4 4 Steps (QC): 4 PT Plan Treatment/Plan Treatment Plan: Continue Plan of Care Treatment Plan: Bed Mobility, Education, Functional Activity Kika, Functional Strength, Group Therapy, Gait, Safety, Therapeutic Exercise, Transfers Treatment Duration: Dec 22, 2021 Frequency: 6 times per week Estimated Hrs Per Day: .25 hour per day Patient and/or Family Agrees t: Yes Time/GCodes Time In: 1003 Time Out: 1019 Total Billed Treatment Time: 16 Total Billed Treatment 1 visit FA 16 min GENNARO CHAN PT Dec 11, 2021 10:31
--- NOTE | 2021-12-11 11:34 | Progress Note - Cardiology ---
Cardiology SOAP Progress Note Subjective: No cp or palp or syncope No shortness of breath No n/v/d Gen weakness Objective: I&O/Vital Signs 12/11/21 12/11/21 12/11/21 12/11/21 00:01 01:00 03:41 07:00 Temp 36.8 36.1 Pulse 76 89 85 70 Resp 18 16 B/P (MAP) 104/67 (79) 109/67 (81) Pulse Ox 98 97 O2 Delivery Room Air Room Air 12/11/21 12/11/21 12/11/21 08:00 08:20 08:47 Temp 36.7 Pulse 50 77 Resp 18 B/P (MAP) 112/74 (87) Pulse Ox 97 O2 Delivery Room Air Room Air 12/11/21 00:00 Intake Total 1080 ml Output Total 2025 ml Balance -945 ml Weight (Pounds): 166 Weight (Ounces): 0.0 Weight (Calculated Kilograms): 75.849116 Constitutional: AAO x 3, other (thin) Respiratory: No accessory muscle use, No respiratory distress; chest expansion is symmetric, rhonchi (scattered), other (prolonged exp phase) Cardiovascular: regular rate-rhythm; No JVD; S1 and S2 Gastrointestional: No tender; soft, audible bowel sounds Extremities: no lower extremity edema bilateral Neurologic/Psychiatric: grossly intact (moves all extremities) Skin: normal color, warm/dry, cyanosis Results/Procedures: Labs Laboratory Tests 12/11/21 05:19: White Blood Count 9.2, Red Blood Count 4.82, Hemoglobin 14.0, Hematocrit 42, Mean Corpuscular Volume 87, Mean Corpuscular Hemoglobin 29, Mean Corpuscular Hemoglobin Concent 33, Red Cell Distribution Width 14.7H, Platelet Count 354, Mean Platelet Volume 9.3, Immature Granulocyte % (Auto) 1, Neutrophils (%) (Auto) 48, Lymphocytes (%) (Auto) 37, Monocytes (%) (Auto) 12, Eosinophils (%) (Auto) 2, Basophils (%) (Auto) 1, Neutrophils # (Auto) 4.5, Lymphocytes # (Auto) 3.4, Monocytes # (Auto) 1.1H, Eosinophils # (Auto) 0.2, Basophils # (Auto) 0.1, Immature Granulocyte # (Auto) 0.1, Sodium Level 135, Potassium Level 4.6, Chloride Level 101, Carbon Dioxide Level 21, Anion Gap 13, Blood Urea Nitrogen 21H, Creatinine 0.83, Estimat Glomerular Filtration Rate 100, BUN/Creatinine Ratio 25, Glucose Level 83, Calcium Level 9.1, Corrected Calcium 9.9, Total Bilirubin 0.4, Aspartate Amino Transf (AST/SGOT) 20, Alanine Aminotransferase (ALT/SGPT) 14, Alkaline Phosphatase 32L, Total Protein 7.1, Albumin 3.0L Microbiology 12/04/21 Urine Culture - Final, Complete NO GROWTH 12/04/21 Blood Culture - Final, Complete No growth Laboratory Tests 12/10/21 05:43 12/11/21 05:19 A/P: Assessment: PSVT - brief runs seen on tele during this hospitalization, much improved on current dose of beta-radha (diltiazem d/c'd on 12/10/21 as the suspected cause for constipation) - Echo 12/08/21: LVEF 50-55%, no RWMA UTI with Sepsis - management per Medical services Abd discomfort and constipation - management per Med svces Significant dental dz - management per medical services Reports h/o irregular heartbeat - H/O PVC's - [place] [address] Lund - denies dx of a-fib or flutter Chronic back pain Tobaccoism - cessation advised Plan: * Continue current cardiac regimen that has successfully controlled his PSVT * Monitor and correct labs * D/c tele, per pt request DONALDO PORTER MD FACP [facility] CCDS Dec 11, 2021 11:34
--- NOTE | 2021-12-11 12:31 | Progress Note - Hospitalist ---
TESFAYE GONZALEZ 12/11/21 1231: Subjective HPI/CC On Admission Date Seen by Provider: Dec 11, 2021 Time Seen by Provider: 12:26 Subjective/Events-last exam Patient is still lethargic with general malaise Was able to sleep last night States the only pain he has today is his chronic back pain, 4/10 Still has not had a bowel movement since the He is alert and orientated X3 Labs reviewed No oral pain at this time No other complaints at this time Objective Exam Vital Signs Vital Signs Date Time Temp Pulse Resp B/P (MAP) Pulse Ox O2 Delivery O2 Flow Rate FiO2 12/11/21 08:47 77 12/11/21 08:20 36.7 18 112/74 (87) 97 Room Air Capillary Refill : Less Than 3 Seconds General Appearance: No Apparent Distress; No Anxious HEENT: PERRL/EOMI; No Scleral Icterus (L), No Scleral Icterus (R) Neck: Full Range of Motion, Non Tender Respiratory: Chest Non Tender, Lungs Clear Cardiovascular: Regular Rate, Rhythm, No Edema, No Gallop Gastrointestinal: No Pulsatile Mass; No Non Tender; Tenderness Rectal: Deferred Back: No CVA Tenderness, Vertebral Tenderness Extremity: Normal Capillary Refill, Normal Inspection Neurologic/Psychiatric: Alert, Oriented x3 Skin: Normal Color, Warm/Dry Lymphatic: No Adenopathy Results/Procedures Lab Laboratory Tests 12/11/21 05:19 Patient resulted labs reviewed. Assessment/Plan Assessment and Plan Assess & Plan/Chief Complaint Sepsis due to gingival infection:- Currently resolved. Wound culture. Wound care consulted CT Orbit showed gingival disease Pain control and fever control with Tylenol and IBU Have patient follow up with dentistry out patient, put on Cleocin- Per Dr. Mortensen. Paroxysmal supraventricular tachycardia:- Currently Resolved Cardiology consulted Discontinue diltiazem 12-10-[address] Ashford to help with constipation. Agreed upon by Dr. Frost Switched to metoprolol 50 mg Echo 12/08/21: LVEF 50-55%, no RWMA Constipation: Discontinue fentanyl Discontinue diltiazem Continue Senna, Colace, Polyethylene glycol Administer Bisacodyl suppository and lactulose Lower Extremity weakness/Chronic Back Pain: Prior MRI showing mild spinal stenosis, facet arthritis and exit foraminal stenosis Continue PT/OT Neurosurgery/Orthopedic consult outpatient Right ankle pain No osseous lesion or deformity on Xray foot or Tibula/Fibula Continue PT Tylenol for pain control Pulmonary Nodules- Per CT chest 9-12 Per Radiology Follow up 3 months RUBY RAY DO 12/12/21 0503: Subjective Subjective/Events-last exam Pt is doing a lot better Was admitted for gingival abscess and infection Pt was placed on appropriate antibiotics Had an episode of paroxysmal SVT Diltiazem was initiated but then changed to Metoprolol He is very constipated and will require aggressive laxatives in order to resolve that He is homeless Review of Systems General: Fatigue, Malaise Objective Exam General Appearance: No Apparent Distress, WD/WN, Chronically ill Respiratory: Lungs Clear, Normal Breath Sounds Cardiovascular: Regular Rate, Rhythm Neurologic/Psychiatric: Alert, Oriented x3 Assessment/Plan Assessment and Plan Assess & Plan/Chief Complaint WYP Supervisory-Addendum Brief Verification & Attestation Participated in pt care: history, MDM, physical Personally performed: exam, history, MDM, supervision of care Care discussed with: Medical Student Procedures: n/a Results interpretation: Verified all documentation Verification and Attestation of Medical Student E/M Service A medical student performed and documented this service in my presence. I reviewed and verified all information documented by the medical student and made modifications to such information, when appropriate. I personally performed the physical exam and medical decision making. Ruby Ray, Dec 12, 2021,05:02 TESFAYE GONZALEZ Dec 11, 2021 12:31 RUBY RAY DO Dec 12, 2021 05:03
[2021-12-11 12:51] VITALS: BP 116/77
--- NOTE | 2021-12-11 12:57 | Occupational Ther Daily Note ---
OT Current Status-Daily Note Subjective Pt sitting in recliner. Pt requests to go back to bed. No c/o pain. C/o constipation. Mental Status/Objective Patient Orientation: Person, Place, Time, Situation ADL-Treatment Therapy Code Descriptions/Definitions Functional [place] Measure: 0=Not Assessed/NA 4=Minimal Assistance 1=Total Assistance 5=Supervision or Setup 2=Maximal Assistance 6=Modified [place] 3=Moderate Assistance 7=Complete IndependenceSCALE: Activities may be completed with or without assistive devices. 5-Kygedfnufw-gphuenj completes the activity by him/herself with no assistance from a helper. 5-Set-up or Clean-up Assistance-helper sets up or cleans up; patient completes activity. [place] assists only prior to or following the activity. 4-Supervision or Touching Assistance-helper provides verbal cues and/or touching/steadying and/or contact guard assistance as patient completes activity. Assistance may be provided throughout the activity or intermittently. 3-Partial/Moderate Assistance-helper does LESS THAN HALF the effort. [place] lifts, holds or supports trunk or limbs, but provides less than half the effort. 2-Substantial/Maximal Assistance-helper does MORE THAN HALF the effort. [place] lifts or holds trunk or limbs and provides more than half the effort. 7-Pkvxbkqnz-nucoda does ALL the effort. Patient does none of the effort to complete the activity. Or, the assistance of 2 or more helpers is required for the patient to complete the activity. If activity was not attempted, code reason: 7-Patient Refused. 9-Not Applicable-not attempted and the patient did not perform the activity before the current illness, exacerbation or injury. 10-Not Attempted due to Environmental Limitations-(lack of equipment, weather restraints, etc.). 88-Not Attempted due to Medical Conditions or Safety Concerns. Eating (QC): 6 Other Treatment Pt independent with eating. CGA for safety with ambulation and transfer from recliner to bed using FWW. Independent with bed mobility. After therapy, pt lying in bed with call light/phone in reach. All needs met in room. OT Correction Goals Correction Goals Time Frame: Dec 15, 2021 Eating (QC): 6 Oral Hygiene (QC): 6 Toileting Hygiene (QC): 6 Upper Body Dressing (QC): 5 Lower Body Dressing (QC): 5 On/Off Footwear (QC): 5 Additional Goals: 1-Demonstrate ADL Tasks, 2-Verbalize Understanding, 3-Im proveStrength/Kika 1=Demonstrate adherence to instructed precautions during ADL tasks. 2=Patient will verbalize/demonstrate understanding of assistive devices/modifications for ADL. 3=Patient will improve strength/tolerance for activity to enable patient to perform ADL's. OT Education/Plan Problem List/Assessment Assessment: Decreased Activ Tolerance Discharge Recommendations Plan/Recommendations: Continue POC Treatment Plan/Plan of Care Patient would benefit from OT for education, treatment and training to promote independence in ADL's, mobility, safety and/or upper extremity function for ADL's. Plan of Care: ADL Retraining, Functional Mobility, UE Funct Exercise/Act Treatment Duration: Dec 15, 2021 Frequency: 3 times per week (3-5 times per week) Rehab Potential: Fair Time/GCodes Start Time: 12:36 Stop Time: 12:50 Total Time Billed (hr/min): 14 Billed Treatment Time 1 visit-FA 1 (14 min) DAVID LEWIS Dec 11, 2021 12:57
[2021-12-11 15:41] VITALS: BP 95/60
[2021-12-11 19:38] VITALS: BP 123/67
[2021-12-11] MEDS: ENOXAPARIN 40 MG/0.4 ML (LOVENOX) SYR SQ SCH ×2 (20:25→20:29)
[2021-12-11] MEDS: polyethylene glycoL POWDER 17 GM (MIRALAX) PACK PO SCH (20:25)
[2021-12-11] MEDS: LACTULOSE SYRUP 10GM/15ML (ENULOSE) 30ML UDC PO SCH (20:25)
[2021-12-12] VITALS (7 sets, daily range): BP systolic 85–125; BP diastolic 56–81
[2021-12-12 05:48] LABS: BASOPHILS # (AUTO) 0.1 10^3/uL (0.0-0.1); BASOPHILS % (AUTO) 1 % (0-10); EOSINOPHILS # (AUTO) 0.1 10^3/uL (0.0-0.3); EOSINOPHILS % (AUTO) 1 % (0-10); HEMATOCRIT 43 % (40-54); HEMOGLOBIN 14.3 g/dL (13.3-17.7); LYMPHOCYTES % (AUTO) 39 % (12-44); MEAN CORPUSCULAR HEMOGLOBIN 29 pg (25-34); MEAN CORPUSCULAR HGB CONC 33 g/dL (32-36); MEAN CORPUSCULAR VOLUME 87 fL (80-99); MEAN PLATELET VOLUME 9.2 fL (9.0-12.2); MONOCYTES # (AUTO) 0.9 10^3/uL (0.0-1.0); MONOCYTES % (AUTO) 9 % (0-12); NEUTROPHILS # (AUTO) 5.1 10^3/uL (1.8-7.8); NEUTROPHILS % (AUTO) 49 % (42-75); PLATELET COUNT 389 10^3/uL (130-400); WHITE BLOOD COUNT 10.3 10^3/uL (4.3-11.0)
[2021-12-12 05:58] LABS: ALBUMIN 3.2 GM/DL (3.2-4.5)
[2021-12-12 05:59] LABS: POTASSIUM 4.7 MMOL/L (3.6-5.0)
[2021-12-12 06:00] LABS: CALCIUM 9.3 MG/DL (8.5-10.1)
[2021-12-12 06:01] LABS: TOTAL PROTEIN 7.5 GM/DL (6.4-8.2)
[2021-12-12 06:03] LABS: BILIRUBIN,TOTAL 0.5 MG/DL (0.1-1.0)
[2021-12-12 06:05] LABS: CREATININE SERUM 0.76 MG/DL (0.60-1.30)
[2021-12-12] MEDS: meTOproloL SUCCINATE 50 MG (TOPROL XL) TAB PO SCH (08:18)
[2021-12-12] MEDS: BISACODYL 10 MG SUPP (DULCOLAX) PR SCH (08:18)
[2021-12-12] MEDS: NICOTINE 21 MG (NICODERM) PATCH TD SCH (08:18)
[2021-12-12] MEDS: NICOTINE PATCH REMOVAL TP SCH (08:18)
[2021-12-12] MEDS: ASPIRIN 81 MG CHEW (CHILDREN'S ASA) PO SCH (08:18)
[2021-12-12] MEDS: LACTULOSE SYRUP 10GM/15ML (ENULOSE) 30ML UDC PO SCH ×2 (08:18→20:23)
--- NOTE | 2021-12-12 09:18 | Progress Note - Cardiology ---
Cardiology SOAP Progress Note Objective: I&O/Vital Signs 12/12/21 12/12/21 12/12/21 12/12/21 00:20 04:21 07:32 08:00 Temp 37.1 36.6 36.7 Pulse 83 76 78 Resp 20 20 18 B/P (MAP) 107/74 (85) 111/78 (89) 125/81 (96) Pulse Ox 96 97 96 O2 Delivery Room Air Room Air Room Air Room Air 12/12/21 00:00 Intake Total 1340 ml Output Total 1650 ml Balance -310 ml Weight (Pounds): 166 Weight (Ounces): 0.0 Weight (Calculated Kilograms): 75.465038 Constitutional: AAO x 3, other (thin) Respiratory: No accessory muscle use, No respiratory distress; chest expansion is symmetric, rhonchi (scattered), other (prolonged exp phase) Cardiovascular: regular rate-rhythm; No JVD; S1 and S2 Gastrointestional: No tender; soft, audible bowel sounds Extremities: no lower extremity edema bilateral Neurologic/Psychiatric: grossly intact (moves all extremities) Skin: normal color, warm/dry, cyanosis Results/Procedures: Labs Laboratory Tests 12/12/21 05:25: White Blood Count 10.3, Red Blood Count 4.97, Hemoglobin 14.3, Hematocrit 43, Mean Corpuscular Volume 87, Mean Corpuscular Hemoglobin 29, Mean Corpuscular Hemoglobin Concent 33, Red Cell Distribution Width 15.2H, Platelet Count 389, Mean Platelet Volume 9.2, Immature Granulocyte % (Auto) 1, Neutrophils (%) (Auto) 49, Lymphocytes (%) (Auto) 39, Monocytes (%) (Auto) 9, Eosinophils (%) (Auto) 1, Basophils (%) (Auto) 1, Neutrophils # (Auto) 5.1, Lymphocytes # (Auto) 4.0, Monocytes # (Auto) 0.9, Eosinophils # (Auto) 0.1, Basophils # (Auto) 0.1, Immature Granulocyte # (Auto) 0.1, Sodium Level 135, Potassium Level 4.7, Chloride Level 101, Carbon Dioxide Level 21, Anion Gap 13, Blood Urea Nitrogen 18, Creatinine 0.76, Estimat Glomerular Filtration Rate 102, BUN/Creatinine Ratio 24, Glucose Level 91, Calcium Level 9.3, Corrected Calcium 9.9, Total Bilirubin 0.5, Aspartate Amino Transf (AST/SGOT) 21, Alanine Aminotransferase (ALT/SGPT) 16, Alkaline Phosphatase 33L, Total Protein 7.5, Albumin 3.2 Microbiology 12/04/21 Urine Culture - Final, Complete NO GROWTH 12/04/21 Blood Culture - Final, Complete No growth Laboratory Tests 12/11/21 05:19 12/12/21 05:25 A/P: Assessment: PSVT - brief runs seen on tele during this hospitalization, much improved on current dose of beta-radha (diltiazem d/c'd on 12/10/21 as the suspected cause for constipation) - Echo 12/08/21: LVEF 50-55%, no RWMA UTI with Sepsis - management per Medical services Abd discomfort and constipation - management per Med svces Significant dental dz - management per medical services Reports h/o irregular heartbeat - H/O PVC's - [place] [address] Lund - denies dx of a-fib or flutter Chronic back pain Tobaccoism - cessation advised Plan: * Continue current cardiac regimen that has successfully controlled his PSVT * Monitor and correct labs * Discharge planning in place with social service consult JORGE GRUBBS Dec 12, 2021 09:18
--- NOTE | 2021-12-12 09:25 | Occ Therapy Progress Note ---
Therapy Progress Note Pt lethargic, mumbles to answer questions. Unable to wake pt, OT will attempt to see pt at next available time. DAVID LEWIS Dec 12, 2021 09:25
--- NOTE | 2021-12-12 09:25 | Progress Note - Hospitalist ---
Subjective HPI/CC On Admission Date Seen by Provider: Dec 12, 2021 Time Seen by Provider: 10:00 Subjective/Events-last exam Pt is doing about the same Sleeping Needs some place to go since he is homeless No antibiotics needed, he is done Review of Systems General: Fatigue, Malaise Objective Exam Vital Signs Vital Signs Date Time Temp Pulse Resp B/P (MAP) Pulse Ox O2 Delivery O2 Flow Rate FiO2 12/13/21 03:55 36.2 71 19 117/81 (93) 99 Room Air Capillary Refill : Less Than 3 Seconds General Appearance: No Apparent Distress, WD/WN, Chronically ill Results/Procedures Lab Patient resulted labs reviewed. Assessment/Plan Assessment and Plan Assess & Plan/Chief Complaint RICHIE NAIK DO Dec 12, 2021 09:25
--- NOTE | 2021-12-12 09:27 | Physical Therapy Daily Note ---
PT Daily Note-Current Subjective Patient is very agreeable to participate with PT. Pain Section J - Health Conditions 1. Rarely or not at all 2. Occasionally 3. Frequently 4. Almost constantly 8. Unable to answer Pain Effect on Sleep: 1 Pain Interference with Therapy: 1 Pain Interference w/Day-to-Day: 2 Mental Status Patient Orientation: Person, Time, Situation Transfers SCALE: Activities may be completed with or without assistive devices. 8-Osnxlbcivr-yzkxkda completes the activity by him/herself with no assistance from a helper. 5-Set-up or Clean-up Assistance-helper sets up or cleans up; patient completes activity. [place] assists only prior to or following the activity. 4-Supervision or Touching Assistance-helper provides verbal cues and/or touching/steadying and/or contact guard assistance as patient completes act ivity. Assistance may be provided throughout the activity or intermittently. 3-Partial/Moderate Assistance-helper does LESS THAN HALF the effort. [place] lifts, holds or supports trunk or limbs, but provides less than half the effort. 2-Substantial/Maximal Assistance-helper does MORE THAN HALF the effort. [place] lifts or holds trunk or limbs and provides more than half the effort. 8-Qootzuixm-kunfju does ALL the effort. Patient does none of the effort to complete the activity. Or, the assistance of 2 or more helpers is required for the patient to complete the activity. If activity was not attempted, code reason: 7-Patient Refused. 9-Not Applicable-not attempted and the patient did not perform the activity before the current illness, exacerbation or injury. 10-Not Attempted due to Environmental Limitations-(lack of equipment, weather restraints, etc.). 88-Not Attempted due to Medical Conditions or Safety Concerns. Lying to Sitting/Side of Bed(Q: 6 Sit to Stand (QC): 4 Chair/Rxv-rj-Rmbth Xfer(QC): 4 SBA with all mobility Weight Bearing Right Lower Extremity: Right Full Weight Bearing Left Lower Extremity: Left Full Weight Bearing Gait Training Distance: 500' Walk 10 feet (QC): 4 Walk 50 ft with 2 Turns(QC): 4 Walk 150 ft (QC): 4 Gait Assistive Device: FWW slow, steady, VC's for body placement in FWW Exercises Supine Ex: Ankle pumps, Quad Set, Heel Slides, Straight leg raise Supine Reps: 12 Seated Therapy Exercises: Long arc quads Seated Reps: 15 Assessment Patient tolerated increase in activity and is up in recliner with needs met. Patient continues to c/o weakness. PT to increase activity as tolerated by patient. PT Shelter Goals Shelter Goals PT Compensation And Benefits Administrator Goals Time Frame: Dec 22, 2021 Roll Left & Right (QC): 6 Sit to Lying (QC): 6 Lying-Sitting on Side/Bed(QC): 6 Sit to Stand (QC): 6 Chair/Lkp-qg-Veeyo Xfer(QC): 6 Toilet Transfer (QC): 6 Does the Patient Walk: Yes Walk 10 feet (QC): 4 Walk 50ft with 2 Turns (QC): 4 Walk 150 ft (QC): 4 1 Step (curb) (QC): 4 4 Steps (QC): 4 PT Plan Treatment/Plan Treatment Plan: Continue Plan of Care Treatment Plan: Bed Mobility, Education, Functional Activity Kika, Functional Strength, Group Therapy, Gait, Safety, Therapeutic Exercise, Transfers Treatment Duration: Dec 22, 2021 Frequency: 6 times per week Estimated Hrs Per Day: .25 hour per day Patient and/or Family Agrees t: Yes Time/GCodes Time In: 749 Time Out: 812 Total Billed Treatment Time: 23 Total Billed Treatment 1 visit EX 10 min FA 13 min GENNARO CHAN PT Dec 12, 2021 09:26
[2021-12-12] MEDS: HYPOCHLOROUS ACID/NaCl (VASHE) 250 ML IR SCH (10:29)
--- NOTE | 2021-12-12 10:42 | Occupational Ther Daily Note ---
OT Current Status-Daily Note Subjective Pt supine in bed. Pt stated that he was too tired to participate in OT session. Requested to have BP taken, 101/61, since he was so tired. Nrsg aware. Pt required max encouragement to participate in OT session. Mental Status/Objective Patient Orientation: Person, Place, Time, Situation ADL-Treatment Therapy Code Descriptions/Definitions Functional [place] Measure: 0=Not Assessed/NA 4=Minimal Assistance 1=Total Assistance 5=Supervision or Setup 2=Maximal Assistance 6=Modified [place] 3=Moderate Assistance 7=Complete IndependenceSCALE: Activities may be completed with or without assistive devices. 3-Gzsgnreint-hktpyih completes the activity by him/herself with no assistance from a helper. 5-Set-up or Clean-up Assistance-helper sets up or cleans up; patient completes activity. [place] assists only prior to or following the activity. 4-Supervision or Touching Assistance-helper provides verbal cues and/or touching/steadying and/or contact guard assistance as patient completes activity. Assistance may be provided throughout the activity or intermittently. 3-Partial/Moderate Assistance-helper does LESS THAN HALF the effort. [place] lifts, holds or supports trunk or limbs, but provides less than half the effort. 2-Substantial/Maximal Assistance-helper does MORE THAN HALF the effort. [place] lifts or holds trunk or limbs and provides more than half the effort. 0-Iiezkfxti-mnoeou does ALL the effort. Patient does none of the effort to complete the activity. Or, the assistance of 2 or more helpers is required for the patient to complete the activity. If activity was not attempted, code reason: 7-Patient Refused. 9-Not Applicable-not attempted and the patient did not perform the activity before the current illness, exacerbation or injury. 10-Not Attempted due to Environmental Limitations-(lack of equipment, weather restraints, etc.). 88-Not Attempted due to Medical Conditions or Safety Concerns. Other Treatment Pt completed 3 B UE exercises against gravity, 1 set 10 reps. Pt fatigues quickly and continues to mumble when talking, nrsg notified. Pt ended session due to increased fatigue. After therapy, pt lying in bed with call light/phone in reach. All needs met in room. OT Top Loader Goals [facility] Goals Time Frame: Dec 15, 2021 Eating (QC): 6 Oral Hygiene (QC): 6 Toileting Hygiene (QC): 6 Upper Body Dressing (QC): 5 Lower Body Dressing (QC): 5 On/Off Footwear (QC): 5 Additional Goals: 1-Demonstrate ADL Tasks, 2-Verbalize Understanding, 3- ImproveStrength/Kika 1=Demonstrate adherence to instructed precautions during ADL tasks. 2=Patient will verbalize/demonstrate understanding of assistive devices/modifications for ADL. 3=Patient will improve strength/tolerance for activity to enable patient to perform ADL's. OT Education/Plan Problem List/Assessment Assessment: Decreased Activ Tolerance Discharge Recommendations Plan/Recommendations: Continue POC Treatment Plan/Plan of Care Patient would benefit from OT for education, treatment and training to promote independence in ADL's, mobility, safety and/or upper extremity function for ADL's. Plan of Care: ADL Retraining, Functional Mobility, UE Funct Exercise/Act Treatment Duration: Dec 15, 2021 Frequency: 3 times per week (3-5 times per week) Rehab Potential: Fair Time/GCodes Start Time: 09:45 Stop Time: 09:56 Total Time Billed (hr/min): 11 Billed Treatment Time 1 visit-EX 1 (11 min) DAVID LEWIS Dec 12, 2021 10:42
--- NOTE | 2021-12-12 14:39 | Progress Note - Cardiology ---
Cardiology SOAP Progress Note Subjective: Gen malaise and weakness and fatigue chronic back pain no cp or palp or syncope no n/v Objective: I&O/Vital Signs 12/12/21 12/12/21 12/12/21 12/12/21 04:21 07:32 08:00 11:34 Temp 36.6 36.7 36.5 Pulse 76 78 76 Resp 20 18 18 B/P (MAP) 111/78 (89) 125/81 (96) 107/75 (86) Pulse Ox 97 96 99 O2 Delivery Room Air Room Air Room Air Room Air 12/11/21 23:59 Intake Total 1340 ml Output Total 1650 ml Balance -310 ml Weight (Pounds): 166 Weight (Ounces): 0.0 Weight (Calculated Kilograms): 75.661927 Constitutional: AAO x 3, other (thin) Respiratory: No accessory muscle use, No respiratory distress; chest expansion is symmetric, rhonchi (scattered), other (prolonged exp phase) Cardiovascular: regular rate-rhythm; No JVD; S1 and S2 Gastrointestional: No tender; soft, audible bowel sounds Extremities: no lower extremity edema bilateral Neurologic/Psychiatric: grossly intact (moves all extremities) Skin: normal color, warm/dry, cyanosis Results/Procedures: Labs Laboratory Tests 12/12/21 05:25: White Blood Count 10.3, Red Blood Count 4.97, Hemoglobin 14.3, Hematocrit 43, Mean Corpuscular Volume 87, Mean Corpuscular Hemoglobin 29, Mean Corpuscular Hemoglobin Concent 33, Red Cell Distribution Width 15.2H, Platelet Count 389, Mean Platelet Volume 9.2, Immature Granulocyte % (Auto) 1, Neutrophils (%) (Auto) 49, Lymphocytes (%) (Auto) 39, Monocytes (%) (Auto) 9, Eosinophils (%) (Auto) 1, Basophils (%) (Auto) 1, Neutrophils # (Auto) 5.1, Lymphocytes # (Auto) 4.0, Monocytes # (Auto) 0.9, Eosinophils # (Auto) 0.1, Basophils # (Auto) 0.1, Immature Granulocyte # (Auto) 0.1, Sodium Level 135, Potassium Level 4.7, Chloride Level 101, Carbon Dioxide Level 21, Anion Gap 13, Blood Urea Nitrogen 18, Creatinine 0.76, Estimat Glomerular Filtration Rate 102, BUN/Creatinine Ratio 24, Glucose Level 91, Calcium Level 9.3, Corrected Calcium 9.9, Total Bilirubin 0.5, Aspartate Amino Transf (AST/SGOT) 21, Alanine Aminotransferase (ALT/SGPT) 16, Alkaline Phosphatase 33L, Total Protein 7.5, Albumin 3.2 Microbiology 12/04/21 Urine Culture - Final, Complete NO GROWTH 12/04/21 Blood Culture - Final, Complete No growth Laboratory Tests 12/11/21 05:19 12/12/21 05:25 A/P: Assessment: PSVT - brief runs seen on tele during this hospitalization, much improved on current dose of beta-radha (diltiazem d/c'd on 12/10/21 as the suspected cause for constipation) - Echo 12/08/21: LVEF 50-55%, no RWMA UTI with Sepsis - management per Medical services Abd discomfort and constipation - management per Med svces Significant dental dz - management per medical services Reports h/o irregular heartbeat - H/O PVC's - [place] [address] Lund - denies dx of a-fib or flutter Chronic back pain Tobaccoism - cessation advised Plan: * Continue current cardiac regimen that has successfully controlled his PSVT * Monitor and correct labs * Discharge planning in place with social service consult [facility]AL[facility] PORTER [facility] Dec 12, 2021 14:39
[2021-12-12] MEDS: polyethylene glycoL POWDER 17 GM (MIRALAX) PACK PO SCH (20:23)
[2021-12-12] MEDS: ENOXAPARIN 40 MG/0.4 ML (LOVENOX) SYR SQ SCH (20:26)
[2021-12-13] VITALS (8 sets, daily range): BP systolic 93–117; BP diastolic 51–81
[2021-12-13 06:08] LABS: BASOPHILS # (AUTO) 0.1 10^3/uL (0.0-0.1); BASOPHILS % (AUTO) 1 % (0-10); EOSINOPHILS # (AUTO) 0.1 10^3/uL (0.0-0.3); EOSINOPHILS % (AUTO) 1 % (0-10); HEMATOCRIT 42 % (40-54); HEMOGLOBIN 14.1 g/dL (13.3-17.7); LYMPHOCYTES # (AUTO) 2.7 10^3/uL (1.0-4.0); LYMPHOCYTES % (AUTO) 30 % (12-44); MEAN CORPUSCULAR HEMOGLOBIN 29 pg (25-34); MEAN CORPUSCULAR HGB CONC 34 g/dL (32-36); MEAN CORPUSCULAR VOLUME 88 fL (80-99); MEAN PLATELET VOLUME 9.5 fL (9.0-12.2); MONOCYTES # (AUTO) 1.1 10^3/uL (0.0-1.0); MONOCYTES % (AUTO) 12 % (0-12); NEUTROPHILS % (AUTO) 56 % (42-75); PLATELET COUNT 345 10^3/uL (130-400); WHITE BLOOD COUNT 8.9 10^3/uL (4.3-11.0)
[2021-12-13 06:28] LABS: ALBUMIN 3.2 GM/DL (3.2-4.5); POTASSIUM 4.2 MMOL/L (3.6-5.0)
[2021-12-13 06:29] LABS: CALCIUM 9.3 MG/DL (8.5-10.1)
[2021-12-13 06:31] LABS: TOTAL PROTEIN 7.3 GM/DL (6.4-8.2)
[2021-12-13 06:32] LABS: BILIRUBIN,TOTAL 0.3 MG/DL (0.1-1.0)
[2021-12-13 06:34] LABS: CREATININE SERUM 0.8 MG/DL (0.60-1.30)
[2021-12-13] MEDS: LACTULOSE SYRUP 10GM/15ML (ENULOSE) 30ML UDC PO SCH ×2 (08:10→20:24)
[2021-12-13] MEDS: NICOTINE 21 MG (NICODERM) PATCH TD SCH (08:10)
[2021-12-13] MEDS: ASPIRIN 81 MG CHEW (CHILDREN'S ASA) PO SCH (08:10)
[2021-12-13] MEDS: BISACODYL 10 MG SUPP (DULCOLAX) PR SCH (08:10)
[2021-12-13] MEDS: meTOproloL SUCCINATE 50 MG (TOPROL XL) TAB PO SCH (08:12)
[2021-12-13] MEDS: NICOTINE PATCH REMOVAL TP SCH (08:15)
--- NOTE | 2021-12-13 08:47 | Physical Therapy Progress Note ---
Therapy Progress Note Attempted PT this AM. Pt reports he just received a suppository, "So I'm not going anywhere". SATNAM CONN DPT Dec 13, 2021 08:47
--- NOTE | 2021-12-13 09:12 | Progress Note - Hospitalist ---
Subjective HPI/CC On Admission Date Seen by Provider: Dec 13, 2021 Time Seen by Provider: 09:00 Subjective/Events-last exam Pt is doing about the same Daughter is here arranging for housing He is homeless Objective Exam Vital Signs Vital Signs Date Time Temp Pulse Resp B/P (MAP) Pulse Ox O2 Delivery O2 Flow Rate FiO2 12/13/21 19:22 36.5 83 18 110/51 (70) 98 Room Air Capillary Refill : Less Than 3 Seconds General Appearance: No Apparent Distress, WD/WN, Chronically ill Results/Procedures Lab Laboratory Tests 12/13/21 05:30 Patient resulted labs reviewed. Assessment/Plan Assessment and Plan Assess & Plan/Chief Complaint RICHIE NAIK DO Dec 13, 2021 09:12
--- NOTE | 2021-12-13 13:43 | Occ Therapy Progress Note ---
Therapy Progress Note Pt very tearful in room. Daughter from [place] in room. SW's and Father in room to discuss discharge planning. Will attempt therapy at next available time. DAVID LEWIS Dec 13, 2021 13:43
--- NOTE | 2021-12-13 14:23 | Occupational Ther Daily Note ---
OT Current Status-Daily Note Subjective Pt asleep in bed easily woke to name. Pt agrees to therapy. No c/o pain at this time. Pt requires max encouragement to participate in therapy. Mental Status/Objective Patient Orientation: Person, Place, Time, Situation Acute change in mental status: 0 Inattention: 0 Disorganized thinkin Altered level of consciousness: 0 ADL-Treatment Therapy Code Descriptions/Definitions Functional [place] Measure: 0=Not Assessed/NA 4=Minimal Assistance 1=Total Assistance 5=Supervision or Setup 2=Maximal Assistance 6=Modified [place] 3=Moderate Assistance 7=Complete IndependenceSCALE: Activities may be completed with or without assistive devices. 1-Vpfsohzxjr-xonxdlz completes the activity by him/herself with no assistance from a helper. 5-Set-up or Clean-up Assistance-helper sets up or cleans up; patient completes activity. [place] assists only prior to or following the activity. 4-Supervision or Touching Assistance-helper provides verbal cues and/or touch ing/steadying and/or contact guard assistance as patient completes activity. Assistance may be provided throughout the activity or intermittently. 3-Partial/Moderate Assistance-helper does LESS THAN HALF the effort. [place] lifts, holds or supports trunk or limbs, but provides less than half the effort. 2-Substantial/Maximal Assistance-helper does MORE THAN HALF the effort. [place] lifts or holds trunk or limbs and provides more than half the effort. 5-Efybzszdv-owdkbc does ALL the effort. Patient does none of the effort to complete the activity. Or, the assistance of 2 or more helpers is required for the patient to complete the activity. If activity was not attempted, code reason: 7-Patient Refused. 9-Not Applicable-not attempted and the patient did not perform the activity before the current illness, exacerbation or injury. 10-Not Attempted due to Environmental Limitations-(lack of equipment, weather restraints, etc.). 88-Not Attempted due to Medical Conditions or Safety Concerns. Other Treatment Pt completed 3 B UE exercises 1 set 10 reps to strengthen B UE for daily functional tasks. Pt demonstrates good strength and ROM when not participating in skilled therapy. Pt requires multiple verbal cues and demonstrations to continue with exercise. Pt refused to participate in any further therapy. Pt left lying in bed call light/phone in reach. All needs met. OT Physician Advisor Goals Halfway Goals Time Frame: Dec 15, 2021 Eating (QC): 6 Oral Hygiene (QC): 6 Toileting Hygiene (QC): 6 Upper Body Dressing (QC): 5 Lower Body Dressing (QC): 5 On/Off Footwear (QC): 5 Additional Goals: 1-Demonstrate ADL Tasks, 2-Verbalize Understanding, 3- ImproveStrength/Kika 1=Demonstrate adherence to instructed precautions during ADL tasks. 2=Patient will verbalize/demonstrate understanding of assistive devices/m odifications for ADL. 3=Patient will improve strength/tolerance for activity to enable patient to perform ADL's. OT Education/Plan Problem List/Assessment Assessment: Decreased Activ Tolerance, Decreased UE Strength Discharge Recommendations Plan/Recommendations: Continue POC Treatment Plan/Plan of Care Patient would benefit from OT for education, treatment and training to promote independence in ADL's, mobility, safety and/or upper extremity function for ADL's. Plan of Care: ADL Retraining, Functional Mobility, UE Funct Exercise/Act Treatment Duration: Dec 15, 2021 Frequency: 3 times per week (3-5 times per week) Rehab Potential: Fair Time/GCodes Start Time: 14:04 Stop Time: 14:19 Total Time Billed (hr/min): 15 Billed Treatment Time 1 visit EX 1 (15 min) DAVID LEWIS Dec 13, 2021 14:23
--- NOTE | 2021-12-13 14:31 | Physical Therapy Progress Note ---
Therapy Progress Note Patient refuses physical therapy this afternoon. Patient states he has had a very emotional afternoon and is not up to physical therapy at this time. Will try back in the morning. CLAUDIA MACIEL PT Dec 13, 2021 14:31
[2021-12-13] MEDS: SENNA W/DOCUSATE (SENOKOT S) TABLET PO PRN (15:53)
[2021-12-13] MEDS: DOCUSATE SODIUM 100 MG (COLACE) CAP PO PRN (15:53)
[2021-12-13] MEDS: ENOXAPARIN 40 MG/0.4 ML (LOVENOX) SYR SQ SCH (20:24)
[2021-12-13] MEDS: polyethylene glycoL POWDER 17 GM (MIRALAX) PACK PO SCH (20:24)
[2021-12-14] MEDS: NICOTINE 21 MG (NICODERM) PATCH TD SCH (07:58)
[2021-12-14] MEDS: BISACODYL 10 MG SUPP (DULCOLAX) PR SCH (07:58)
[2021-12-14] MEDS: meTOproloL SUCCINATE 50 MG (TOPROL XL) TAB PO SCH (07:59)
[2021-12-14] MEDS: NICOTINE PATCH REMOVAL TP SCH (07:59)
[2021-12-14] MEDS: ASPIRIN 81 MG CHEW (CHILDREN'S ASA) PO SCH (07:59)
[2021-12-14] MEDS: LACTULOSE SYRUP 10GM/15ML (ENULOSE) 30ML UDC PO SCH (07:59)
[2021-12-14 08:10] VITALS: BP 112/75
[2021-12-14] MEDS: HYPOCHLOROUS ACID/NaCl (VASHE) 250 ML IR SCH (09:56)
--- NOTE | 2021-12-14 10:13 | Physical Therapy Progress Note ---
Therapy Progress Note Patient up in hallway ambulating with nursing staff. Observed patient ambulating 500' with FWW and set up only. Per SW, patient will dismiss to facility on this date. PT to dismiss patient from services at this time. GENNARO CHAN PT Dec 14, 2021 10:13
[2021-12-14] MEDS ORDERED: ASPI81TA64 PO (12:29)
[2021-12-14] MEDS ORDERED: METO50TA7 PO (12:29)
--- NOTE | 2021-12-14 12:29 | Discharge Summary ---
Discharge Summary Hospital Course Was the Problem List Reviewed?: Yes Problems/Dx: (1) Oral cellulitis Status: Acute (2) Homelessness Status: Acute (3) Sepsis Status: Acute (4) Acute necrotizing ulcerative gingivitis Status: Acute Hospital Course Date of Admission: Dec 04, 2021 at 18:50 Admission Diagnosis : Family Physician/Provider: [place] [place] Date of Discharge: 12/14/21 Discharge Diagnosis: Sepsis, necrotizing oral cellulitis, homelessness Hospital Course: Lengthy hospital course when he was admitted for sepsis from necrotizing oral cellulitis requiring broad-spectrum antibiotics of which he finished. Homelessness required extensive social work support and working with daughter to secure safe living orders for him and emergency Medicaid application. Overall he did very well there was no complications during hospital course he was dis charged in improved condition. Labs and Pending Lab Test: Microbiology 12/04/21 Urine Culture - Final, Complete NO GROWTH 12/04/21 Blood Culture - Final, Complete No growth Home Meds Active No Active Prescriptions or Reported Medications Assessment/Pt Instructions PCP in 1 week Discharge Planning: <30 minutes discharge planning Discharge Physical Examination Vital Signs Vital Signs Date Time Temp Pulse Resp B/P (MAP) Pulse Ox O2 Delivery O2 Flow Rate FiO2 12/14/21 08:10 36.6 73 18 112/75 (87) 96 Room Air General Appearance: No Apparent Distress, WD/WN, Chronically ill, Thin Allergies: Coded Allergies: No Known Drug Allergies (Verified , 10/16/17) Discharge Summary Date of Admission Dec 04, 2021 at 18:50 Date of Discharge Discharge Date: Dec 14, 2021 Discharge Diagnosis RICHIE NAIK DO Dec 14, 2021 12:29
--- NOTE | 2021-12-14 13:41 | Occupational Ther Daily Note ---
OT Current Status-Daily Note Subjective Pt alert in bed. Pt agrees to therapy. No c/o pain at this time. Mental Status/Objective Patient Orientation: Person, Place, Time, Situation, [place] Acute change in mental status: 0 Inattention: 0 Disorganized thinkin Altered level of consciousness: 0 ADL-Treatment Therapy Code Descriptions/Definitions Functional [place] Measure: 0=Not Assessed/NA 4=Minimal Assistance 1=Total Assistance 5=Supervision or Setup 2=Maximal Assistance 6=Modified [place] 3=Moderate Assistance 7=Complete IndependenceSCALE: Activities may be completed with or without assistive devices. 5-Eogczgcxzc-wbzvpmd completes the activity by him/herself with no assistance from a helper. 5-Set-up or Clean-up Assistance-helper sets up or cleans up; patient completes activity. [place] assists only prior to or following the activity. 4-Supervision or Touching Assistance-helper provides verbal cues and/or touching/steadying and/or contact guard assistance as patient completes ac tivity. Assistance may be provided throughout the activity or intermittently. 3-Partial/Moderate Assistance-helper does LESS THAN HALF the effort. [place] lifts, holds or supports trunk or limbs, but provides less than half the effort. 2-Substantial/Maximal Assistance-helper does MORE THAN HALF the effort. [place] lifts or holds trunk or limbs and provides more than half the effort. 5-Wkdgwsaik-rljsej does ALL the effort. Patient does none of the effort to complete the activity. Or, the assistance of 2 or more helpers is required for the patient to complete the activity. If activity was not attempted, code reason: 7-Patient Refused. 9-Not Applicable-not attempted and the patient did not perform the activity before the current illness, exacerbation or injury. 10-Not Attempted due to Environmental Limitations-(lack of equipment, weather restraints, etc.). 88-Not Attempted due to Medical Conditions or Safety Concerns. Other Treatment Pt completed 3 B UE exercises, against gravity, 2 sets 10 reps to strengthen B UE for daily functional activities. Skilled instruction and demonstration given to keep pt on task. Pt spuriously fatigued while completing second set of exercises. Pt left in lying in bed call light/phone in reach. All needs met in room. Education OT Patient Education: Exercise program Teaching Recipient: Patient Teaching Methods: Demonstration, Discussion Response to Teaching: Verbalize Understanding, Return Demonstration OT Corporate Development Analyst Goals Corporate Development Analyst Goals Time Frame: Dec 15, 2021 Eating (QC): 6 Oral Hygiene (QC): 6 Toileting Hygiene (QC): 6 Upper Body Dressing (QC): 5 Lower Body Dressing (QC): 5 On/Off Footwear (QC): 5 Additional Goals: 1-Demonstrate ADL Tasks, 2-Verbalize Understanding, 3- ImproveStrength/Kika 1=Demonstrate adherence to instructed precautions during ADL tasks. 2=Patient will verbalize/demonstrate understanding of assistive devices/modifications for ADL. 3=Patient will improve strength/tolerance for activity to enable patient to perform ADL's. OT Education/Plan Problem List/Assessment Assessment: Decreased Activ Tolerance, Decreased UE Strength Discharge Recommendations Plan/Recommendations: Continue POC Treatment Plan/Plan of Care Patient would benefit from OT for education, treatment and training to promote independence in ADL's, mobility, safety and/or upper extremity function for ADL's. Plan of Care: ADL Retraining, Functional Mobility, UE Funct Exercise/Act Treatment Duration: Dec 15, 2021 Frequency: 3 times per week (3-5 times per week) Rehab Potential: Fair Time/GCodes Start Time: 13:18 Stop Time: 13:29 Total Time Billed (hr/min): 11 Billed Treatment Time 1 visit EX 1 (11 min) DAVID LEWIS Dec 14, 2021 13:41
[2021-12-14 15:30] VITALS: BP 112/75
== END 2021-12-14 15:30 | disposition home or self-care (01) | DRG 872 ==
LOC: EDUNIT# 15:14 → ER 15:15 → 4TH 18:50
PROVIDERS: ADMIT Family Medicine; ATTEND Internal Medicine
DX: A41.9 Sepsis, unspecified organism (principal); A69.1 Other Vincent's infections; K12.2 Cellulitis and abscess of mouth; I47.1 Supraventricular tachycardia; Z59.01 Sheltered homelessness; K59.00 Constipation, unspecified; R91.8 Other nonspecific abnormal finding of lung field; Z20.822 Contact with and (suspected) exposure to COVID-19; M48.061 Spinal stenosis, lumbar region without neurogenic claudication; M25.471 Effusion, right ankle; I48.91 Unspecified atrial fibrillation; F17.210 Nicotine dependence, cigarettes, uncomplicated; F12.90 Cannabis use, unspecified, uncomplicated; F32.A Depression, unspecified
CPT/HCPCS: 36415; 70486; 71045; 71260; 73590; 73630; 80053; 80202; 80306; 80320; 81000; 83605; 85025; 85027; 85610; 85652; 85730; 86141; 87040; 87088; 87636; 90471; 90715; 93005; 93306; 96361; 96365; 96367; 96368; 96375

== ENCOUNTER → 2022-01-24 | Outpatient (CLI) | payer MEDICAID ==
[~2022-01-24] MED LIST changes: +ASPI81TA64 PO; +METO50TA7 PO; +RT-ALBUTEROL SULF 2.5 MG/3 ML PRE-MIX VIAL INH ONE
== END ==
LOC: RT 09:48
PROVIDERS: ATTEND Nurse Practitioner Family
DX: J43.2 Centrilobular emphysema (principal)
CPT/HCPCS: 94060; 94726; 94729

== ENCOUNTER 2022-02-20 09:31 | Outpatient (RCR) | payer MEDICAID ==
[~2022-02-20 09:31] MED LIST changes: -RT-ALBUTEROL SULF 2.5 MG/3 ML PRE-MIX VIAL INH ONE
== END 2022-02-21 | disposition still patient (30) ==
PROVIDERS: ATTEND Pain Medicine Interventional Pain Medicine
DX: M51.16 Intervertebral disc disorders with radiculopathy, lumbar region (principal)

== ENCOUNTER 2022-03-20 14:10 | Outpatient (RCR) | payer MEDICAID | END 2022-03-24 | disposition home or self-care (01) | PROVIDERS: ATTEND Pain Medicine Interventional Pain Medicine | DX: M51.16 Intervertebral disc disorders with radiculopathy, lumbar region (principal); J45.909 Unspecified asthma, uncomplicated ==

== ENCOUNTER 2022-03-29 09:21 | Outpatient (RCR) | payer MEDICAID | END 2022-04-24 | disposition home or self-care (01) | PROVIDERS: ATTEND Pain Medicine Interventional Pain Medicine | DX: M51.16 Intervertebral disc disorders with radiculopathy, lumbar region (principal); J45.909 Unspecified asthma, uncomplicated ==

== ENCOUNTER → 2022-05-28 | Outpatient (CLI) | payer MEDICAID ==
[~2022-05-28] MED LIST changes: +CATHETER FLUSH 10 ML SYR IVP PRN
--- NOTE | 2022-05-29 11:17 | Diagnostic Imaging Report ---
INDICATION: Pulmonary nodules. TECHNIQUE: Serum blood glucose level at the time of injection was 104 mg per deciliter. Patient was administered 10.2 mCi F-18 FDG intravenously in the left forearm and PET imaging was performed from the top of the skull to mid thighs. A noncontrast CT was also performed for attenuation correction and anatomic correlation. COMPARISON: No prior PET/CT study is available for comparison. FINDINGS: There is symmetric activity throughout the brain. The soft tissues of the neck are unremarkable. No mediastinal or hilar hypermetabolism is identified. No pulmonary parenchymal hypermetabolism is identified. There is some very mild low level activity involving bilateral axillary lymph nodes with an SUV max on the right of approximately 3 and on the left 2.7. Physiologic activity in the GI and tracts of the abdomen and pelvis is noted. No areas of hypermetabolism in the abdomen or pelvis are identified. IMPRESSION: 1. No hypermetabolic pulmonary mass is identified. Continued followup of small pulmonary nodules with conventional CT chest would be recommended. There is no thoracic hypermetabolic lymphadenopathy. 2. Low level activity within axillary lymph nodes, as described, is indeterminate but perhaps reactive. Dictated by: Dictated on workstation # [id number]
== END ==
LOC: RAD 10:15
PROVIDERS: ATTEND Nurse Practitioner Family
DX: J44.9 Chronic obstructive pulmonary disease, unspecified (principal); R93.89 Abnormal findings on diagnostic imaging of other specified body structures; R91.8 Other nonspecific abnormal finding of lung field; F17.200 Nicotine dependence, unspecified, uncomplicated
CPT/HCPCS: 78815; 82947; A9552